=== PATIENT | male | born 1945 | race Caucasian/White ===

== ENCOUNTER 2024-01-18 11:34 | Outpatient (AMB) | payer OTHER, SELFPAY ==
--- NOTE | 2024-01-18 11:48 | HO.NEPHOV ---
HPI HPI Comments History of Present Illness Details I had the pleasure of seeing Jim in follow-up of his chronic kidney disease and hypertension. He has history of right BKA. His feels that he has been having memory issues lately. He is on aspirin. He never had workup rule out multi-infarct dementia. He is tolerating Jardiance. His blood sugar control is fair. He is on lisinopril. He denies any depression but the PCP and the family feels that he is mildly depressed. His paroxetine dosage has been increased lately. He denies nausea, vomiting, diarrhea, chest pain, shortness of breath, paroxysmal nocturnal dyspnea or orthopnea. He does not take any nonsteroidal anti-inflammatory medications. He maintains good hydration. His serum creatinine has gone up. He does not have any orthostatic symptoms. [facility] Medical History (Updated 01/18/24 @ 21:00 by Mihir Foster MD) Type 2 diabetes mellitus with diabetic nephropathy Hypertension CKD (chronic kidney disease) stage 3, GFR 30-59 ml/min Family History Mother Cancer Father Cancer Social History Alcohol intake: never Patient Tobacco Use Status: Former Tobacco user Vital Signs 01/18/24 11:53 BP 132/72 Blood Pressure Location Lt brachial Position Sitting Pulse 94 Pulse Source Pulse Oximeter Pulse Oximetry (%) 95 Oxygen Delivery Method Room Air Physical Exam Vital Signs: Last Vital Signs Pulse 94 01/18/24 11:53 BP 132/72 01/18/24 11:53 Pulse Ox 95 01/18/24 11:53 Oxygen Delivery Method Room Air 01/18/24 11:53 Const General: comfortable and no acute distress Orientation/consciousness: patient oriented x3 HEENT Head: Yes normocephalic Mouth: Normal oral and palatal mucosa present Eyes EOM: EOMs intact bilaterally Neck Neck: Yes supple Resp Auscultation: clear to auscultation bilaterally Cardio Jugular venous distension: no JVD Rate: regular rate GI Palpation (GI): Soft to palpation Auscultation: normal bowel sounds General: Yes no CVA tenderness Back/Spine/Pelvis Back: no CVA tenderness Skin General skin exam: no rashes or lesions noted Neuro General: patient oriented x3 Assessment & Plan Assessment & Plan (1) CKD (chronic kidney disease) stage 3, GFR 30-59 ml/min: Code(s): N18.30 - Chronic kidney disease, stage 3 unspecified Qualifiers: Chronic kidney disease stage 3 subtype: stage 3b (GFR 30-44) Qualified Code(s): N18.32 - Chronic kidney disease, stage 3b (2) Type 2 diabetes mellitus with diabetic nephropathy: Code(s): E11.21 - Type 2 diabetes mellitus with diabetic nephropathy Qualifiers: Diabetes mellitus intermediate manager insulin use: with skilled nursing use Qualified Code(s): E11.21 - Type 2 diabetes mellitus with diabetic nephropathy; Z79.4 - tank terminal gauger (current) use of insulin (3) Hypertension: Code(s): I10 - Essential (primary) hypertension Qualifiers: Hypertension type: primary hypertension Qualified Code(s): I10 - Essential (primary) hypertension Plan 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 He has history of severe vascular disease. He is status post right BKA. His serum creatinine has gone up a bit. If his serum creatinine continues to rise I will back off on his DARLENE inhibitor. He is tolerating Jardiance. His blood pressure is at goal. He needs to maintain good blood sugar. He can cut back on the dose of his vitamin-C. His volume status is optimal. I did not make any medication changes today. He avoids nonsteroidal anti-inflammatories. He should maintain good hydration. I ordered follow-up blood work. Further management is pending evolving data. Answered all his and his 's questions. Orders: Orders Blood Urea Nitrogen Today E11.21 - Type 2 diabetes mellitus with diabetic nephropathy, I10 - Essential (primary) hypertension, N18.30 - Chronic kidney disease, stage 3 unspecified Creatinine Today E11.21 - Type 2 diabetes mellitus with diabetic nephropathy, I10 - Essential (primary) hypertension, N18.30 - Chronic kidney disease, stage 3 unspecified Electrolytes Today E11.21 - Type 2 diabetes mellitus with diabetic nephropathy, I10 - Essential (primary) hypertension, N18.30 - Chronic kidney disease, stage 3 unspecified Protein Creatinine Ratio, Ur Today E11.21 - Type 2 diabetes mellitus with diabetic nephropathy, I10 - Essential (primary) hypertension, N18.30 - Chronic kidney disease, stage 3 unspecified Coding Level of Care Code Est Pt Level 4 (88727) Diagnoses Stage 3b chronic kidney disease N18.32 Chronic kidney disease stage 3 subtype: stage 3b (GFR 30-44) Type 2 diabetes mellitus with diabetic nephropathy, with long-term current use of insulin E11.21; Z79.4 Diabetes mellitus skilled nursing insulin use: with intermediate manager use Primary hypertension I10 Hypertension type: primary hypertension Results Reviewed Nephrology Results: No Data to Display
[2024-01-18 11:53] VITALS: BP 132/72; PULSE 94; O2SAT 95
== END 2024-01-18 13:04 | disposition home or self-care (01) ==
PROVIDERS: Visit Provider Internal Medicine Nephrology
DX: N18.32 Chronic kidney disease, stage 3b (principal); E11.21 Type 2 diabetes mellitus with diabetic nephropathy; Z79.4 Long term (current) use of insulin; I10 Essential (primary) hypertension
CPT/HCPCS: 99214

== ENCOUNTER → 2024-01-18 11:34 | Outpatient (BNVA) | payer OTHER, SELFPAY | PROVIDERS: Visit Provider Internal Medicine Nephrology ==

== ENCOUNTER 2024-04-18 13:49 | Outpatient (AMB) | payer OTHER, SELFPAY ==
--- NOTE | 2024-04-18 14:02 | HO.NEPHOV ---
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 He has history of right BKA. His feels that he has been having memory issues lately. He is on aspirin. He never had workup rule out multi-infarct dementia. He is tolerating Jardiance. His blood sugar control is fair. He is on lisinopril. He denies any depression but the PCP and the family feels that he is mildly depressed. His paroxetine dosage has been increased lately. He denies nausea, vomiting, diarrhea, chest pain, shortness of breath, paroxysmal nocturnal dyspnea or orthopnea. He does not take any nonsteroidal anti-inflammatory medications. He maintains good hydration. He does not have any orthostatic symptoms. [facility] Medical History (Updated 01/18/24 @ 21:00 by Mihir Foster MD) Type 2 diabetes mellitus with diabetic nephropathy Hypertension CKD (chronic kidney disease) stage 3, GFR 30-59 ml/min Family History Mother Cancer Father Cancer Social History Alcohol intake: never Patient Tobacco Use Status: Former Tobacco user Physical Exam Vital Signs: Last Vital Signs Pulse 81 04/18/24 14:38 BP 110/60 04/18/24 14:38 Pulse Ox 96 04/18/24 14:38 Oxygen Delivery Method Room Air 04/18/24 14:38 BMI result Body Mass Index 27.2 Const General: comfortable and no acute distress Orientation/consciousness: patient oriented x3 HEENT Head: Yes normocephalic Mouth: Normal oral and palatal mucosa present Eyes EOM: EOMs intact bilaterally Neck Neck: Yes supple Resp Auscultation: clear to auscultation bilaterally Cardio Jugular venous distension: no JVD Rate: regular rate GI Palpation (GI): Soft to palpation Auscultation: normal bowel sounds General: Yes no CVA tenderness Back/Spine/Pelvis Back: no CVA tenderness Skin General skin exam: no rashes or lesions noted Neuro General: patient oriented x3 and moves all extremities Results Reviewed Nephrology Results: No Data to Display Assessment & Plan Assessment & Plan (1) CKD (chronic kidney disease) stage 3, GFR 30-59 ml/min: Code(s): N18.30 - Chronic kidney disease, stage 3 unspecified Category: Medical Qualifiers: Chronic kidney disease stage 3 subtype: stage 3b (GFR 30-44) Qualified Code(s): N18.32 - Chronic kidney disease, stage 3b (2) Type 2 diabetes mellitus with diabetic nephropathy: Code(s): E11.21 - Type 2 diabetes mellitus with diabetic nephropathy Category: Medical Qualifiers: Diabetes mellitus intermodal customer service insulin use: with halfway use Qualified Code(s): E11.21 - Type 2 diabetes mellitus with diabetic nephropathy; Z79.4 - shelter (current) use of insulin (3) Hypertension: Code(s): I10 - Essential (primary) hypertension Category: Medical Qualifiers: Hypertension type: primary hypertension Qualified Code(s): I10 - Essential (primary) hypertension Plan 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 He has history of severe vascular disease. He is status post right BKA. His serum creatinine has gone up a bit. If his serum creatinine continues to rise I will back off on his DARLENE inhibitor. He is tolerating Jardiance. His blood pressure is at goal. He needs to maintain good blood sugar. His volume status is optimal. I did not make any medication changes today. He avoids nonsteroidal anti-inflammatories. He should maintain good hydration. I ordered follow-up blood work. Further management is pending evolving data. Answered all his and his 's questions. Orders: Orders Creatinine Today E11.21 - Type 2 diabetes mellitus with diabetic nephropathy, I10 - Essential (primary) hypertension, N18.32 - Chronic kidney disease, stage 3b, Z79.4 - shelter (current) use of insulin Electrolytes Today E11.21 - Type 2 diabetes mellitus with diabetic nephropathy, I10 - Essential (primary) hypertension, N18.32 - Chronic kidney disease, stage 3b, Z79.4 - shelter (current) use of insulin Calcium Today E11.21 - Type 2 diabetes mellitus with diabetic nephropathy, I10 - Essential (primary) hypertension, N18.32 - Chronic kidney disease, stage 3b, Z79.4 - shelter (current) use of insulin Blood Urea Nitrogen 3 Months E11.21 - Type 2 diabetes mellitus with diabetic nephropathy, I10 - Essential (primary) hypertension, N18.32 - Chronic kidney disease, stage 3b, Z79.4 - terminologist (current) use of insulin Electrolytes 3 Months E11.21 - Type 2 diabetes mellitus with diabetic nephropathy, I10 - Essential (primary) hypertension, N18.32 - Chronic kidney disease, stage 3b, Z79.4 - shelter (current) use of insulin Blood Urea Nitrogen Today E11.21 - Type 2 diabetes mellitus with diabetic nephropathy, I10 - Essential (primary) hypertension, N18.32 - Chronic kidney disease, stage 3b, Z79.4 - shelter (current) use of insulin Creatinine 3 Months E11.21 - Type 2 diabetes mellitus with diabetic nephropathy, I10 - Essential (primary) hypertension, N18.32 - Chronic kidney disease, stage 3b, Z79.4 - terminologist (current) use of insulin Coding Level of Care Code Est Pt Level 4 (94058) Diagnoses Stage 3b chronic kidney disease N18.32 Chronic kidney disease stage 3 subtype: stage 3b (GFR 30-44) Type 2 diabetes mellitus with diabetic nephropathy, with long-term current use of insulin E11.21; Z79.4 Diabetes mellitus intermodal customer service insulin use: with halfway use Primary hypertension I10 Hypertension type: primary hypertension
[2024-04-18 14:38] VITALS: BP 110/60; PULSE 81; O2SAT 96; BMI 27.2
== END 2024-04-18 15:02 | disposition home or self-care (01) ==
PROVIDERS: Visit Provider Internal Medicine Nephrology
DX: N18.32 Chronic kidney disease, stage 3b (principal); E11.21 Type 2 diabetes mellitus with diabetic nephropathy; Z79.4 Long term (current) use of insulin; I10 Essential (primary) hypertension
CPT/HCPCS: 99214

== ENCOUNTER → 2024-04-18 13:49 | Outpatient (BNVA) | payer OTHER, SELFPAY | PROVIDERS: Visit Provider Internal Medicine Nephrology ==

== ENCOUNTER 2024-04-18 15:08 | Outpatient (REF) | payer OTHER, SELFPAY ==
[2024-04-18 18:26] LABS: Anion Gap 12 (12-20); Blood Urea Nitrogen 38 mg/dL (9-16); Carbon Dioxide 33 mmol/L (22-29); Chloride 101 mmol/L (96-108); Estimated Glomerular Filt Rate 34; Phosphorus 2.6 mg/dL (2.7-4.5); Potassium 3.9 mmol/L (3.3-5.1); Sodium 142 mmol/L (135-145)
== END 2024-04-18 15:09 | disposition home or self-care (01) ==
LOC: HO.HKASLDS 15:08
PROVIDERS: Visit Provider Internal Medicine Nephrology
DX: I12.9 Hypertensive chronic kidney disease with stage 1 through stage 4 chronic kidney disease, or unspecified chronic kidney disease (principal); N18.30 Chronic kidney disease, stage 3 unspecified; E11.21 Type 2 diabetes mellitus with diabetic nephropathy; N18.32 Chronic kidney disease, stage 3b; Z79.4 Long term (current) use of insulin
CPT/HCPCS: 36415; 80051; 82306; 82310; 82565; 84100; 84520

== ENCOUNTER 2024-08-31 11:43 | Outpatient (AMB) | payer OTHER, SELFPAY ==
[2024-08-31 12:23] VITALS: BP 90/50; BMI 28.8
--- NOTE | 2024-08-31 12:23 | HO.NEPHOV ---
Vital Signs 08/31/24 12:23 Height 6 ft Weight 212 lb 4 oz BMI 28.8 BP 90/50 L Blood Pressure Location Lt brachial Position Sitting Intake Visit Reasons: 3 mon follow up-Conf Optomechanical Engineer Required: No Accompanied by: Spouse Allergies No Known Allergies Allergy (Verified 04/18/24 14:42) HPI Comments Details: Jim was seen in follow-up of his chronic kidney disease and hypertension. He has history of right BKA. He is on aspirin. He never had workup rule out multi-infarct dementia. He is tolerating Jardiance. His blood sugar control is fluctuant but fair. He is on lisinopril. He denies nausea, vomiting, diarrhea, chest pain, shortness of breath, paroxysmal nocturnal dyspnea or orthopnea. He does not take any nonsteroidal anti-inflammatory medications. He maintains good hydration. He does not have any orthostatic symptoms [facility] Medical History (Updated 01/18/24 @ 21:00 by Mihir Foster MD) Type 2 diabetes mellitus with diabetic nephropathy Hypertension CKD (chronic kidney disease) stage 3, GFR 30-59 ml/min Family History Mother Cancer Father Cancer Social History Alcohol intake: never Patient Tobacco Use Status: Former Tobacco user Review of Systems Const All systems reviewed & are unremarkable except as noted in HPI and below Physical Exam Vital Signs: Last Vital Signs BP 90/50 L 08/31/24 12:23 BMI result Body Mass Index 28.8 Const General: comfortable and no acute distress Orientation/consciousness: patient oriented x3 HEENT Head: Yes normocephalic Mouth: Normal oral and palatal mucosa present Eyes EOM: EOMs intact bilaterally Neck Neck: Yes supple Resp Auscultation: clear to auscultation bilaterally Cardio Jugular venous distension: no JVD Rate: regular rate GI Palpation (GI): Soft to palpation Auscultation: normal bowel sounds General: Yes no CVA tenderness Back/Spine/Pelvis Back: no CVA tenderness Skin General skin exam: no rashes or lesions noted Neuro General: patient oriented x3 and moves all extremities Assessment & Plan Assessment & Plan (1) CKD (chronic kidney disease) stage 3, GFR 30-59 ml/min: Code(s): N18.30 - Chronic kidney disease, stage 3 unspecified Category: Medical Qualifiers: Chronic kidney disease stage 3 subtype: stage 3b (GFR 30-44) Qualified Code(s): N18.32 - Chronic kidney disease, stage 3b (2) Hypertension: Code(s): I10 - Essential (primary) hypertension Category: Medical Qualifiers: Hypertension type: primary hypertension Qualified Code(s): I10 - Essential (primary) hypertension Plan 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 He has history of severe vascular disease. He is status post right BKA. He has not had any blood work recently. If his serum creatinine continues to rise I will back off on his DARLENE inhibitor. He is tolerating Jardiance. His blood pressure is at goal. He needs to maintain good blood sugar. His volume status is optimal. I did not make any medication changes today. He avoids nonsteroidal anti-inflammatories. He should maintain good hydration. Answered all his and his 's questions Orders: Orders Creatinine 3 Months I10 - Essential (primary) hypertension, N18.32 - Chronic kidney disease, stage 3b Blood Urea Nitrogen 3 Months I10 - Essential (primary) hypertension, N18.32 - Chronic kidney disease, stage 3b Creatinine 08/31/24 I10 - Essential (primary) hypertension, N18.32 - Chronic kidney disease, stage 3b Blood Urea Nitrogen 08/31/24 I10 - Essential (primary) hypertension, N18.32 - Chronic kidney disease, stage 3b Electrolytes 08/31/24 I10 - Essential (primary) hypertension, N18.32 - Chronic kidney disease, stage 3b Calcium 08/31/24 I10 - Essential (primary) hypertension, N18.32 - Chronic kidney disease, stage 3b Complete Blood Count Auto Diff 08/31/24 I10 - Essential (primary) hypertension, N18.32 - Chronic kidney disease, stage 3b Electrolytes 3 Months I10 - Essential (primary) hypertension, N18.32 - Chronic kidney disease, stage 3b Coding Level of Care Code Est Pt Level 4 (95390) Diagnoses Stage 3b chronic kidney disease N18.32 Chronic kidney disease stage 3 subtype: stage 3b (GFR 30-44) Primary hypertension I10 Hypertension type: primary hypertension
== END 2024-08-31 13:01 | disposition home or self-care (01) ==
LOC: HO.HKAS 11:43
PROVIDERS: Visit Provider Internal Medicine Nephrology
DX: N18.32 Chronic kidney disease, stage 3b (principal); I10 Essential (primary) hypertension
CPT/HCPCS: 99214

== ENCOUNTER → 2024-08-31 11:43 | Outpatient (BNVA) | payer OTHER, SELFPAY | PROVIDERS: Visit Provider Internal Medicine Nephrology ==

== ENCOUNTER 2025-01-23 12:11 | Outpatient (AMB) | payer OTHER, SELFPAY ==
--- NOTE | 2025-01-23 12:11 | HO.NEPHOV ---
Intake Visit Reasons: Disc'd home/ ? on meds Process Improvement Engineer Required: No Accompanied by: Spouse Allergies No Known Allergies Allergy (Verified 01/23/25 12:16) HPI Comments Details: Jim was seen in follow-up by [facility] for his chronic kidney disease and hypertension. 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 He had MJ during his rehab time in [facility]. He is on aspirin. He is tolerating Jardiance but apparently had been taking Jardiance and Farxiga, which is now discontinued. His blood sugar control is fluctuant but fair. His lisinopril has been D/David for JM. He denies nausea, vomiting, diarrhea, chest pain, shortness of breath, paroxysmal nocturnal dyspnea or orthopnea. He does not take any nonsteroidal anti-inflammatory medications. He maintains good hydration. He does not have any orthostatic symptoms [facility] Medical History (Updated 01/23/25 @ 13:07 by Mihir Foster MD) Type 2 diabetes mellitus with diabetic nephropathy Hypertension CKD (chronic kidney disease) stage 3, GFR 30-59 ml/min Family History Mother Cancer Father Cancer Social History Alcohol intake: never Patient Tobacco Use Status: Former Tobacco user Review of Systems Const All systems reviewed & are unremarkable except as noted in HPI and below Telehealth Telehealth Telehealth Platform: Telephone Location of provider rendering services: practice address Location of patient: address on file Patient Identification confirmed using: Name, : Yes Telehealth method: voice only Patient verbally consented to treatment: Yes Patient verbally consented to billing insurance company: Yes Patient informed of any privacy concerns related to visit: No Minutes spent on Phone/Video with Pt.: 10 Assessment & Plan Assessment & Plan (1) Acute kidney injury superimposed on stage 3a chronic kidney disease: Code(s): N17.9 - Acute kidney failure, unspecified; N18.31 - Chronic kidney disease, stage 3a Category: Medical (2) CKD (chronic kidney disease) stage 3, GFR 30-59 ml/min: Code(s): N18.30 - Chronic kidney disease, stage 3 unspecified Category: Medical Qualifiers: Chronic kidney disease stage 3 subtype: stage 3b (GFR 30-44) Qualified Code(s): N18.32 - Chronic kidney disease, stage 3b (3) Type 2 diabetes mellitus with diabetic nephropathy: Code(s): E11.21 - Type 2 diabetes mellitus with diabetic nephropathy Category: Medical Qualifiers: Diabetes mellitus ocean transportation intermediary insulin use: with ocean transportation intermediary use Qualified Code(s): E11.21 - Type 2 diabetes mellitus with diabetic nephropathy; Z79.4 - medical terminologist (current) use of insulin (4) Hypertension: Code(s): I10 - Essential (primary) hypertension Category: Medical Qualifiers: Hypertension type: primary hypertension Qualified Code(s): I10 - Essential (primary) hypertension Plan 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 He has history of severe vascular disease. He is status post right and left BKA. He is off his DARLENE inhibitor given MJ. He is tolerating Jardiance. His blood pressure is at goal. He needs to maintain good blood sugar. His volume status is optimal. I did not make any medication changes today. He avoids nonsteroidal anti-inflammatories. He should maintain good hydration. Answered all his and his 's questions Orders: Orders Electrolytes 6 Weeks E11.21 - Type 2 diabetes mellitus with diabetic nephropathy, I10 - Essential (primary) hypertension, N17.9 - Acute kidney failure, unspecified, N18.31 - Chronic kidney disease, stage 3a, N18.32 - Chronic kidney disease, stage 3b, Z79.4 - senior living (current) use of insulin Calcium 6 Weeks E11.21 - Type 2 diabetes mellitus with diabetic nephropathy, I10 - Essential (primary) hypertension, N17.9 - Acute kidney failure, unspecified, N18.31 - Chronic kidney disease, stage 3a, N18.32 - Chronic kidney disease, stage 3b, Z79.4 - medical terminologist (current) use of insulin Creatinine 6 Weeks E11.21 - Type 2 diabetes mellitus with diabetic nephropathy, I10 - Essential (primary) hypertension, N17.9 - Acute kidney failure, unspecified, N18.31 - Chronic kidney disease, stage 3a, N18.32 - Chronic kidney disease, stage 3b, Z79.4 - senior living (current) use of insulin Complete Blood Count Auto Diff 6 Weeks E11.21 - Type 2 diabetes mellitus with diabetic nephropathy, I10 - Essential (primary) hypertension, N17.9 - Acute kidney failure, unspecified, N18.31 - Chronic kidney disease, stage 3a, N18.32 - Chronic kidney disease, stage 3b, Z79.4 - senior living (current) use of insulin Blood Urea Nitrogen 6 Weeks E11.21 - Type 2 diabetes mellitus with diabetic nephropathy, I10 - Essential (primary) hypertension, N17.9 - Acute kidney failure, unspecified, N18.31 - Chronic kidney disease, stage 3a, N18.32 - Chronic kidney disease, stage 3b, Z79.4 - medical terminologist (current) use of insulin Coding Level of Care Code Tele Est Pt Level 4 (03562) Diagnoses Acute kidney injury superimposed on stage 3a chronic kidney disease N17.9; N18.31 Stage 3b chronic kidney disease N18.32 Chronic kidney disease stage 3 subtype: stage 3b (GFR 30-44) Type 2 diabetes mellitus with diabetic nephropathy, with long-term current use of insulin E11.21; Z79.4 Diabetes mellitus ocean transportation intermediary insulin use: with skilled nursing use Primary hypertension I10 Hypertension type: primary hypertension
== END 2025-01-23 13:52 | disposition home or self-care (01) ==
LOC: HO.HKAS 12:11
PROVIDERS: Visit Provider Internal Medicine Nephrology
DX: N17.9 Acute kidney failure, unspecified (principal); N18.31 Chronic kidney disease, stage 3a; N18.32 Chronic kidney disease, stage 3b; E11.21 Type 2 diabetes mellitus with diabetic nephropathy; Z79.4 Long term (current) use of insulin; I10 Essential (primary) hypertension
CPT/HCPCS: 98014

== ENCOUNTER 2025-03-01 13:05 | Outpatient (AMB) | payer OTHER, SELFPAY ==
--- NOTE | 2025-03-01 13:25 | HO.NEPHOV_ITS ---
Vital Signs 03/01/25 14:00 Height 6 ft BP 122/80 Blood Pressure Location Lt brachial Position Sitting Pulse 85 Pulse Source Pulse Oximeter Intake Visit Reasons: CKD-LVM Chemical Analytical Sampler Required: No Accompanied by: Spouse Allergies No Known Allergies Allergy (Verified 03/01/25 14:00) HPI Comments Details: Jim was seen in follow-up for his chronic kidney disease and hypertension. He has history of right and left BKA . His blood sugars are not well controlled. He had MJ post op but improved now. He is on aspirin. He is tolerating Jardiance. His lisinopril has been D/David for MJ. He denies nausea, vomiting, diarrhea, chest pain, shortness of breath, paroxysmal nocturnal dyspnea or orthopnea. He does not take any nonsteroidal anti-inflammatory medications. He maintains good hydration. He does not have any orthostatic symptoms [facility] Medical History Type 2 diabetes mellitus with diabetic nephropathy Hypertension CKD (chronic kidney disease) stage 3, GFR 30-59 ml/min Family History Mother Cancer Father Cancer Social History Alcohol intake: never Patient Tobacco Use Status: Former Tobacco user Review of Systems Const All systems reviewed & are unremarkable except as noted in HPI and below Physical Exam Vital Signs: Last Vital Signs Pulse 85 03/01/25 14:00 BP 122/80 03/01/25 14:00 Const General: comfortable and no acute distress Orientation/consciousness: patient oriented x3 HEENT Head: Yes normocephalic Mouth: Normal oral and palatal mucosa present Eyes EOM: EOMs intact bilaterally Neck Neck: Yes supple Resp Auscultation: clear to auscultation bilaterally Cardio Jugular venous distension: no JVD Rate: regular rate GI Palpation (GI): Soft to palpation Auscultation: normal bowel sounds Neuro General: patient oriented x3 Assessment & Plan Assessment & Plan (1) CKD (chronic kidney disease) stage 3, GFR 30-59 ml/min: Code(s): N18.30 - Chronic kidney disease, stage 3 unspecified Category: Medical Qualifiers: Chronic kidney disease stage 3 subtype: stage 3b (GFR 30-44) Qualified Code(s): N18.32 - Chronic kidney disease, stage 3b (2) Type 2 diabetes mellitus with diabetic nephropathy: Code(s): E11.21 - Type 2 diabetes mellitus with diabetic nephropathy Category: Medical Qualifiers: Diabetes mellitus laborer marine terminal insulin use: with nursing home use Qualified Code(s): E11.21 - Type 2 diabetes mellitus with diabetic nephropathy; Z79.4 - intermediate frame tender (current) use of insulin (3) Hypertension: Code(s): I10 - Essential (primary) hypertension Category: Medical Qualifiers: Hypertension type: primary hypertension Qualified Code(s): I10 - Essential (primary) hypertension Plan 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 He has history of severe vascular disease. He is status post right and left BKA. He is off his DARLENE inhibitor given MJ. He is tolerating Jardiance. His blood pre ssure is at goal. He needs to maintain good blood sugar. His volume status is optimal. I did not make any medication changes today. He avoids nonsteroidal anti-inflammatories. He should maintain good hydration. Answered all his and his 's questions Orders: Orders Blood Urea Nitrogen 3 Months E11.21 - Type 2 diabetes mellitus with diabetic nephropathy, I10 - Essential (primary) hypertension, N18.32 - Chronic kidney disease, stage 3b, Z79.4 - intermediate frame tender (current) use of insulin Creatinine 3 Months E11.21 - Type 2 diabetes mellitus with diabetic nephropathy, I10 - Essential (primary) hypertension, N18.32 - Chronic kidney disease, stage 3b, Z79.4 - longterm (current) use of insulin Electrolytes 3 Months E11.21 - Type 2 diabetes mellitus with diabetic nephropathy, I10 - Essential (primary) hypertension, N18.32 - Chronic kidney disease, stage 3b, Z79.4 - longterm (current) use of insulin Coding Level of Care Code Est Pt Level 4 (01037) Diagnoses Stage 3b chronic kidney disease N18.32 Chronic kidney disease stage 3 subtype: stage 3b (GFR 30-44) Type 2 diabetes mellitus with diabetic nephropathy, with long-term current use of insulin E11.21; Z79.4 Diabetes mellitus laborer marine terminal insulin use: with laborer marine terminal use Primary hypertension I10 Hypertension type: primary hypertension
[2025-03-01 14:00] VITALS: BP 122/80; PULSE 85
--- OUTSIDE RECORDS SUMMARY | 2025-03-01 15:30 | XMS_ITS | Encounter Summary ---
Author Organization [facility] Address [address] [place] [address] Care Team Providers Care Costumed Character Name Role Phone Maci Carvajal Primary Care Provider [phone] Encounter Details Date Type Department Care Team (Late st Contact Info) Description 10/06/2024 Lab Requisition [facility] - Main Lab [address] [facility] [place] [address] Gadiel Armstrong PA [address] [place] [address] Benign essential microscopic hematuria Social History Tobacco Use Types Packs/Day Years Used Date Smoking Tobacco: Former Cigarettes Q uit: 11/01/1974 Smokeless Tobacco: Former Alcohol Use Standard Drinks/Week Comments Never 0 (1 standard drink = 0.6 oz pur e alcohol) Sex and Gender Information Value Date Recorded Sex Assigned at Not on file Legal Sex Male 5:19 AM EST Gender Identity Not on file Sexual Orientation Not on file documented as of this encounter Plan of Treatment Upcoming Encounters Date Type Department Care Team (Late st Contact Info) Description 05/23/2025 10:20 AM EDT Office Visit [facility] [address] [place] [address] Sajan Noriega MD [address] [place] [address] DRIVE [address] [place] [address] documented as of this encounter Procedures Procedure Name Priority Date/Time Associated Diagnosis Comments AP OUTSIDE CONSULT Routine 10/03/2024 12 :00 AM EST Benign essential microscopic hematuria documented in this encounter Results * Anatomic pathology outside consult (10/03/2024 12:00 AM EST) Final Diagnosis Urine, Voided: Negative for high-grade urothelial carcinoma. Abundant acute inflammation. Scant urothelial cellularity. 10/20/2024 5:55 PM EST [facility] Clinical Information [id number] Urine Cytology (now) 10/20/2024 5:55 PM EST [facility] Gross Description A. Urine, Voided, : [id number] Received 1 TP 10/20/2024 5:55 PM EST [facility] Disclaimer Unless otherwise specified, all tissue is 10% NB formalin fixed and paraffin embedded. Technical pathology services provided by [facility] [address] [facility] [address] [place] [address] (CLIA #[id number]/S alexandr Saenz MD, Battery Service Technician) 10/20/2024 5:55 PM EST [facility] Tissue Urine specimen from urethra / Unknown 10/03/2024 10/06/2024 3:18 PM EST us Gadiel NEW LAB PATHOLOGY ORDERABLES Final Result [facility] [address] [place] [address], documented in this encounter Visit Diagnoses Diagnosis Benign essential microscopic hematuria documented in this encounter Care Teams Costumed Character Relationship Specialty Start Date End Date Maci Carvajal PA [address] [place] [address] PCP - General 06/25/23 documented as of this encounter
--- OUTSIDE RECORDS SUMMARY | 2025-03-01 15:30 | XMS_ITS ---
Author Organization [facility] Address [address] [facility] [place] [address] Care Team Providers Care Weasand Trimmer Name Role Phone Niki VELÁZQUEZ, Brennan Primary Care Provider Unavailab Piper Gonzalez Unavailable [phone] Maci Carvajal Unavailable Unavailable Encounters Encounter Location Date Provider Diagnosis [address] [address] 12/26/2024 Piper Santso Plan Of Treatment No Information Progress Notes * Jim AUGUSTIN ADOB:[birth year] (79 yo M)Acc No.[id number]:12/26/2024 Progress Note Patient:Jim IVAN Provider:?Piper Santos DPM :1945???Age:79 Y???Sex:Male Jean-Claude e:12/26/2024 Address[address] [id number] Pcp:Brennan Prince MD Subjective: * Chief Complaints: * ??? * Medical History:? Objective: * Vitals:? Assessment: Plan: * Treatment: * Images: * The named appointment provid er may or may not be the originator of this progress note, and it is not deemed complete until electronically signed by the appointment provider. Sign off status: Pending * Provider:?Piper Santos DPM Date:?2024 Generated for Johni lissa/Fajesseniag/eTransmitting on:?03/01/2025 03:30 PM EDT
--- OUTSIDE RECORDS SUMMARY | 2025-03-01 15:30 | XMS_ITS | Encounter Summary ---
Author Organization [facility] Address [address] [place] [address] Care Team Providers Care Photo Technician Name Role Phone Maci Carvajal Primary Care Provider [phone] Encounter Details Date Type Department Care Team (Late st Contact Info) Description 12/15/2024 Lab Requisition [facility] - Main Lab [address] [facility] [place] [address] Marianna Ellison MD [address] [address] Weakness; Type 2 diabetes mellitus without complications (CMS/HCC V24, CMS/HCC V28) Social History Tobacco Use Types Packs/Day Years [...] Description 05/23/2025 10:20 AM EDT Office Visit [facility] [address] [place] [address] Sajan Noriega MD [address] [place] [address] DRIVE [address] [place] [address] documented as of this encounter Procedures Procedure Name Priority Date/Time Associated Diagnosis Comments COMPLETE BLOOD COUNT Routine 12/18/2024 6:18 AM EST Weakness Type 2 diabetes mellitus without complications (CMS/HCC) BASIC METABOLIC PANEL Routine 12/18/2024 6:18 AM EST Weakness Type 2 diabetes mellitus without complications ([facility]/HCC) documented in this encounter Results * (ABNORMAL) Basic metabolic panel (12/18/2024 6:18 AM EST) Sodium 141 133 - 145 mmol/L LAB CHEMISTRY METHOD 12/18/2024 1:[address] [facility] Potassium 4.2 3.5 - 5.5 mmol/L LAB CHEMISTRY METHOD 12/18/2024 1:[address] [facility] Chloride 105 96 - 110 mmol/L LAB CHEMISTRY METHOD 12/18/2024 1:[address] [facility] CO2 25 21 - 32 mmol/L LAB CHEMISTRY METHOD 12/18/2024 1:[address] [facility] Anion Gap 11 3 - 11 LAB CHEMISTRY METHOD 12/18/2024 1:[address] [facility] Glucose 140(H) 70 - 100 mg/dL LAB CHEMISTRY METHOD 12/18/2024 1:[address] [facility] BUN 32(H) 5 - 25 mg/dL LAB CHEMISTRY METHOD 12/18/2024 1:[address] [facility] Creatinine 1.50(H) 0.70 - 1.30 mg/dL LAB CHEMISTRY METHOD 12/18/2024 1:[address] [facility] eGFR 47(L) >=60 mL/min/1. 73m2 LAB CHEMISTRY METHOD 12/18/2024 1:[address] [facility] Comment:Calculation based on the??Chronic Kidney Disease Epidemiology Collaboration (CKD-EPI) equation refit??without adjustment for race. BUN/Creatinine Ratio 21.3 LAB CHEMISTRY METHOD 12/18/2024 1:[address] [facility] Calcium 8.9 8.5 - 10.5 mg/dL LAB CHEMISTRY METHOD 12/18/2024 1:27 PM EST [facility] Blood Venous blood specimen / Unknown Venipuncture / Unknown 12/18/2024 6:18 AM EST 12/18/2024 11:40 AM EST us Marianna Ellison MD LAB BLOOD ORDERABLES Fin al Result [facility] [address] [place] [address], [place] [phone] * (ABNORMAL) Complete blood count (12/18/2024 6:18 AM EST) WBC 8.3 4.8 - 10.8 K/mcL LAB HEMETOLOGY METHOD 12/18/2024 1:[address] [facility] RBC 4.60 4.50 - 5.50 M/[facility] LAB HEMETOLOGY METHOD 12/18/2024 1:[address] [facility] Hemoglobin 13.4(L) 13.5 - 17.5 g/dL LAB HEMETOLOGY METHOD 12/18/2024 1:[address] [facility] Hematocrit 43.0 42.0 - 54.0 % LAB HEMETOLOGY METHOD 12/18/2024 1:[address] [facility] MCV 94.5 79.0 - 98.0 FL LAB HEMETOLOGY METHOD 12/18/2024 1:[address] [facility] MCH 29.5 27.0 - 32.0 pcg LAB HEMETOLOGY METHOD 12/18/2024 1:[address] [facility] MCHC 31.2(L) 32.0 - 37.0 g/dL LAB HEMETOLOGY METHOD 12/18/2024 1:[address] [facility] RDW 15.8(H) 11.0 - 15.0 % LAB HEMETOLOGY METHOD 12/18/2024 1:13 PM EST [facility] Platelets 156 130 - 400 K/mcL LAB HEMETOLOGY METHOD 12/18/2024 1:13 PM EST [facility] MPV 12.2(H) 7.0 - 11.0 FL LAB HEMETOLOGY METHOD 12/18/2024 1:13 PM EST [facility] NRBC 0.0 <1.0 % LAB HEMETOLOGY METHOD 12/18/2024 1:13 PM EST [facility] NRBC Absolute 0.00 <0.10 K/mcL LAB HEMETOLOGY METHOD 12/18/2024 1:[address] [facility] Blood Venous blood specimen / Unknown Venipuncture / Unknown 12/18/2024 6:18 AM EST 12/18/2024 11:40 AM EST us Marianna Ellison MD LAB BLOOD ORDERABLES Fin al Result [facility] [address] [place] [address], documented in this encounter Visit Diagnoses Diagnosis Weakness Other malaise and fatigue Type 2 diabetes mellitus without complications (CMS/HCC V24, CMS/HCC V28) documented in this encounter Care Teams Photo Technician Relationship Specialty Start Date End Date Maci Carvajal PA [address] [place] [address] PCP - General 06/25/23 documented as of this encounter
--- OUTSIDE RECORDS SUMMARY | 2025-03-01 15:30 | XMS_ITS ---
Author Organization [facility] Address [address] [place] [address] Care Team Providers Care Information Management Manager Name Role Phone Brennan Prince MD Primary Care Provider Unavailab le Black, Piper Unavailable [phone] Maci Carvajal Unavailable Unavailable REASON FOR VISIT cx appt 12/26/24 Encounters Encounter Location Date Provider Diagnosis [facility] [address] [place] [address] 12/12/2024 Piper Black Plan Of Treatment No Information Progress Notes * Jim AUGUSTIN ADOB:[birth year] (79 yo M)Acc No.[id number]:12/12/2024 Patient:?Jim AUGUSTIN :1945???Age:79 Y???Sex:Male Address[address] [place], [address] * true * Date:? Generated for Rox alcaraz/Rakesh/eTransmitting on:?03/01/2025 03:30 PM EDT
--- OUTSIDE RECORDS SUMMARY | 2025-03-01 15:30 | XMS_ITS | Encounter Summary ---
Author Organization [facility] Address [address] [place] [address] Care Team Providers Care Stud Dairy Cattle Farmer Name Role Phone Maci Carvajal Primary Care Provider [phone] Encounter Details Date Type Department Care Team (Late st Contact Info) Description 12/13/[address] [facility] - Main Lab [address] [facility] [place] [address] Marianna Ellison MD [address] [address] Weakness; Type 2 diabetes mellitus without complications [...] Description 05/23/2025 10:20 AM EDT Office Visit [facility] [address] [place] [address] Sajan Noriega MD [address] [place] [address] [address] [place] [address] documented as of this encounter Procedures Procedure Name Priority Date/Time Associated Diagnosis Comments COMPLETE BLOOD COUNT Routine 12/14/2024 5:50 AM EST Weakness Type 2 diabetes mellitus without complications (CMS/HCC) BASIC METABOLIC PANEL Routine 12/14/2024 5:50 AM EST Weakness Type 2 diabetes mellitus without complications ([facility]/HCC) documented in this encounter Results * (ABNORMAL) Basic metabolic panel (12/14/2024 5:50 AM EST) Sodium 142 133 - 145 mmol/L LAB CHEMISTRY METHOD 12/14/2024 10:11 AM [facility] Potassium 4.2 3.5 - 5.5 mmol/L LAB CHEMISTRY METHOD 12/14/2024 10:11 AM [facility] Chloride 106 96 - 110 mmol/L LAB CHEMISTRY METHOD 12/14/2024 10:11 AM [facility] CO2 31 21 - 32 mmol/L LAB CHEMISTRY METHOD 12/14/2024 10:11 AM [facility] Anion Gap 5 3 - 11 LAB CHEMISTRY METHOD 12/14/2024 10:11 AM [facility] Glucose 133(H) 70 - 100 mg/dL LAB CHEMISTRY METHOD 12/14/2024 10:11 AM [facility] BUN 37(H) 5 - 25 mg/dL LAB CHEMISTRY METHOD 12/14/2024 10:11 AM [facility] Creatinine 1.42(H) 0.70 - 1.30 mg/dL LAB CHEMISTRY METHOD 12/14/2024 10:11 AM [facility] eGFR 50(L) >=60 mL/min/1. 73m2 LAB CHEMISTRY METHOD 12/14/2024 10:11 AM [facility] Comment:Calculation based on the??Chronic Kidney Disease Epidemiology Collaboration (CKD-EPI) equation refit??without adjustment for race. BUN/Creatinine Ratio 26.1 LAB CHEMISTRY METHOD 12/14/2024 10:11 AM [facility] Calcium 8.8 8.5 - 10.5 mg/dL LAB CHEMISTRY METHOD 12/14/2024 10:11 AM EST [facility] Blood Venous blood specimen / Unknown Venipuncture / Unknown 12/14/2024 5:50 AM EST 12/14/2024 9:17 AM EST us Marianna Ellison MD LAB BLOOD ORDERABLES Fin al Result [facility] [address] [place] [address], [place] [phone] * (ABNORMAL) Complete blood count (12/14/2024 5:50 AM EST) WBC 6.3 4.8 - 10.8 K/mcL LAB HEMETOLOGY METHOD 12/14/2024 9:43 AM [facility] RBC 4.40(L) 4.50 - 5.50 M/[facility] LAB HEMETOLOGY METHOD 12/14/2024 9:43 AM [facility] Hemoglobin 13.0(L) 13.5 - 17.5 g/dL LAB HEMETOLOGY METHOD 12/14/2024 9:43 AM [facility] Hematocrit 41.7(L) 42.0 - 54.0 % LAB HEMETOLOGY METHOD 12/14/2024 9:43 AM [facility] MCV 95.0 79.0 - 98.0 FL LAB HEMETOLOGY METHOD 12/14/2024 9:43 AM [facility] MCH 29.6 27.0 - 32.0 pcg LAB HEMETOLOGY METHOD 12/14/2024 9:43 AM [facility] MCHC 31.2(L) 32.0 - 37.0 g/dL LAB HEMETOLOGY METHOD 12/14/2024 9:43 AM [facility] RDW 15.4(H) 11.0 - 15.0 % LAB HEMETOLOGY METHOD 12/14/2024 9:43 AM EST [facility] Platelets 173 130 - 400 K/mcL LAB HEMETOLOGY METHOD 12/14/2024 9:43 AM EST [facility] MPV 11.7(H) 7.0 - 11.0 FL LAB HEMETOLOGY METHOD 12/14/2024 9:43 AM EST [facility] NRBC 0.0 <1.0 % LAB HEMETOLOGY METHOD 12/14/2024 9:43 AM EST [facility] NRBC Absolute 0.00 <0.10 K/mcL LAB HEMETOLOGY METHOD 12/14/2024 9:43 AM [facility] Blood Venous blood specimen / Unknown Venipuncture / Unknown 12/14/2024 5:50 AM EST 12/14/2024 9:16 AM EST us Marianna Ellison MD LAB BLOOD ORDERABLES Fin al Result [facility] [address] [place] [address], documented in this encounter Visit Diagnoses Diagnosis Weakness Other malaise and fatigue Type 2 diabetes mellitus without complications (CMS/HCC V24, CMS/HCC V28) documented in this encounter Care Teams Stud Dairy Cattle Farmer Relationship Specialty Start Date End Date Maci Carvajal PA [address] [place] [address] PCP - General 06/25/23 documented as of this encounter
--- OUTSIDE RECORDS SUMMARY | 2025-03-01 15:30 | XMS_ITS | Encounter Summary ---
Author Organization [facility] Address [address] [place] [address] Care Team Providers Care Substation Operator Helper Generation Name Role Phone Maci Carvajal Primary Care Provider [phone] Encounter Details Date Type Department Care Team (Late st Contact Info) Description 12/22/2024 Lab Requisition [facility] - Main Lab [address] [facility] [place] [address] Marianna Ellison MD [address] [address] Weakness; Type 2 diabetes mellitus without complications [...] Description 05/23/2025 10:20 AM EDT Office Visit [facility] [address] [place] [address] Sajan Noriega MD [address] [place] [address] [address]IVE [address] [place] [address] documented as of this encounter Visit Diagnoses Diagnosis Weakness Other malaise and fatigue Type 2 diabetes mellitus without complications (CMS/[facility] V24, CMS/[facility] V28) documented in this encounter Care Teams Substation Operator Helper Generation Relationship Specialty Start Date End Date Maci Carvajal PA [address] [place] [address] PCP - General 06/25/23 documented as of this encounter
--- OUTSIDE RECORDS SUMMARY | 2025-03-01 15:30 | XMS_ITS | Encounter Summary ---
Author Organization [facility] Address [address] [place] [address] Care Team Providers Care Manager Research Name Role Phone Maci Carvajal Primary Care Provider [phone] Encounter Details Date Type Department Care Team (Late st Contact Info) Description 12/06/2024 Lab Requisition [facility] - Main Lab 299 [facility] [place] [address] Marianna Ellison MD [address] [address] Type 2 diabetes mellitus without complications (CMS/HCC V24, CMS/HCC V28); Weakness Social History Tobacco Use Types Packs/Day Years [...] Description 05/23/2025 10:20 AM EDT Office Visit [facility] [address] [place] [phone] Sajna Noriega MD [address] [place] [address] [address] [place] [address] documented as of this encounter Procedures Procedure Name Priority Date/Time Associated Diagnosis Comments COMPLETE BLOOD COUNT Routine 12/07/2024 6:39 AM EST Type 2 diabetes mellitus without complications ([facility]/HCC) Weakness BASIC METABOLIC PANEL Routine 12/07/2024 6:39 AM EST Type 2 diabetes mellitus without complications ([facility]/HCC) Weakness documented in this encounter Results * (ABNORMAL) Basic metabolic panel (12/07/2024 6:39 AM EST) Sodium 140 133 - 145 mmol/L LAB CHEMISTRY METHOD 12/07/2024 11:[address] [facility] Potassium 5.0 3.5 - 5.5 mmol/L LAB CHEMISTRY METHOD 12/07/2024 11:[address] [facility] Chloride 105 96 - 110 mmol/L LAB CHEMISTRY METHOD 12/07/2024 11:[address] [facility] CO2 29 21 - 32 mmol/L LAB CHEMISTRY METHOD 12/07/2024 11:[address] [facility] Anion Gap 6 3 - 11 LAB CHEMISTRY METHOD 12/07/2024 11:[address] [facility] Glucose 120(H) 70 - 100 mg/dL LAB CHEMISTRY METHOD 12/07/2024 11:[address] [facility] BUN 31(H) 5 - 25 mg/dL LAB CHEMISTRY METHOD 12/07/2024 11:[address] [facility] Creatinine 1.46(H) 0.70 - 1.30 mg/dL LAB CHEMISTRY METHOD 12/07/2024 11:[address] [facility] eGFR 49(L) >=60 mL/min/1. 73m2 LAB CHEMISTRY METHOD 12/07/2024 11:[address] [facility] Comment:Calculation based on the??Chronic Kidney Disease Epidemiology Collaboration (CKD-EPI) equation refit??without adjustment for race. BUN/Creatinine Ratio 21.2 LAB CHEMISTRY METHOD 12/07/2024 11:[address] [facility] Calcium 9.3 8.5 - 10.5 mg/dL LAB CHEMISTRY METHOD 12/07/2024 11:[address] [facility] Blood Venous blood specimen / Unknown Venipuncture / Unknown 12/07/2024 6:39 AM EST 12/07/2024 10:43 AM EST us Marianna Ellison MD LAB BLOOD ORDERABLES Fin al Result [facility] [address] [place] [address], [place] [phone] * (ABNORMAL) Complete blood count (12/07/2024 6:39 AM EST) WBC 7.1 4.8 - 10.8 K/mcL LAB HEMETOLOGY METHOD 12/07/2024 11:[address] [facility] RBC 4.50 4.50 - 5.50 M/[facility] LAB HEMETOLOGY METHOD 12/07/2024 11:[address] [facility] Hemoglobin 13.2(L) 13.5 - 17.5 g/dL LAB HEMETOLOGY METHOD 12/07/2024 11:[address] [facility] Hematocrit 42.4 42.0 - 54.0 % LAB HEMETOLOGY METHOD 12/07/2024 11:[address] [facility] MCV 94.6 79.0 - 98.0 FL LAB HEMETOLOGY METHOD 12/07/2024 11:[address] [facility] MCH 29.5 27.0 - 32.0 pcg LAB HEMETOLOGY METHOD 12/07/2024 11:[address] [facility] MCHC 31.1(L) 32.0 - 37.0 g/dL LAB HEMETOLOGY METHOD 12/07/2024 11:[address] [facility] RDW 15.3(H) 11.0 - 15.0 % LAB HEMETOLOGY METHOD 12/07/2024 11:40 AM EST [facility] Platelets 213 130 - 400 K/mcL LAB HEMETOLOGY METHOD 12/07/2024 11:40 AM EST [facility] MPV 11.7(H) 7.0 - 11.0 FL LAB HEMETOLOGY METHOD 12/07/2024 11:40 AM EST [facility] NRBC 0.0 <1.0 % LAB HEMETOLOGY METHOD 12/07/2024 11:40 AM EST [facility] NRBC Absolute 0.00 <0.10 K/mcL LAB HEMETOLOGY METHOD 12/07/2024 11:[address] [facility] Blood Venous blood specimen / Unknown Venipuncture / Unknown 12/07/2024 6:39 AM EST 12/07/2024 10:43 AM EST us Marianna Ellison MD LAB BLOOD ORDERABLES Fin al Result [facility] [address] [place] [address], documented in this encounter Visit Diagnoses Diagnosis Type 2 diabetes mellitus without complications (CMS/HCC V24, CMS/HCC V28) Weakness Other malaise and fatigue documented in this encounter Care Teams Manager Research Relationship Specialty Start Date End Date Maci Carvajal PA [address] [place] [address] PCP - General 06/25/23 documented as of this encounter
--- OUTSIDE RECORDS SUMMARY | 2025-03-01 15:30 | XMS_ITS | Encounter Summary ---
Author Organization [facility] Address [address] [place] [address] Care Team Providers Care Sample Mounter Name Role Phone Maci Carvajal Primary Care Provider [phone] Encounter Details Date Type Department Care Team (Late st Contact Info) Description 12/20/2024 Lab Requisition [facility] - Main Lab 299 [facility] [place] [address] Marianna Ellison MD [address] [address] Weakness; Type 2 diabetes mellitus without complications [...] Description 05/23/2025 10:20 AM EDT Office Visit [facility] [address] [place] [address] Sajan Noriega MD [address] [place] [address] DR[address] [place] [address] documented as of this encounter Procedures Procedure Name Priority Date/Time Associated Diagnosis Comments COMPLETE BLOOD COUNT Routine 12/21/2024 8:52 AM EST Weakness Type 2 diabetes mellitus without complications (CMS/HCC) BASIC METABOLIC PANEL Routine 12/21/2024 8:52 AM EST Weakness Type 2 diabetes mellitus without complications ([facility]/HCC) documented in this encounter Results * (ABNORMAL) Basic metabolic panel (12/21/2024 8:52 AM EST) Sodium 138 133 - 145 mmol/L LAB CHEMISTRY METHOD 12/21/2024 1:[address] [facility] Potassium 4.3 3.5 - 5.5 mmol/L LAB CHEMISTRY METHOD 12/21/2024 1:[address] [facility] Chloride 104 96 - 110 mmol/L LAB CHEMISTRY METHOD 12/21/2024 1:[address] [facility] CO2 24 21 - 32 mmol/L LAB CHEMISTRY METHOD 12/21/2024 1:[address] [facility] Anion Gap 10 3 - 11 LAB CHEMISTRY METHOD 12/21/2024 1:[address] [facility] Glucose 141(H) 70 - 100 mg/dL LAB CHEMISTRY METHOD 12/21/2024 1:[address] [facility] BUN 32(H) 5 - 25 mg/dL LAB CHEMISTRY METHOD 12/21/2024 1:[address] [facility] Creatinine 1.38(H) 0.70 - 1.30 mg/dL LAB CHEMISTRY METHOD 12/21/2024 1:[address] [facility] eGFR 52(L) >=60 mL/min/1. 73m2 LAB CHEMISTRY METHOD 12/21/2024 1:[address] [facility] Comment:Calculation based on the??Chronic Kidney Disease Epidemiology Collaboration (CKD-EPI) equation refit??without adjustment for race. BUN/Creatinine Ratio 23.2 LAB CHEMISTRY METHOD 12/21/2024 1:[address] [facility] Calcium 8.9 8.5 - 10.5 mg/dL LAB CHEMISTRY METHOD 12/21/2024 1:34 PM EST [facility] Blood Venous blood specimen / Unknown Venipuncture / Unknown 12/21/2024 8:52 AM EST 12/21/2024 11:25 AM EST us Marianna Ellison MD LAB BLOOD ORDERABLES Fin al Result [facility] [address] [place] [address], [place] [phone] * (ABNORMAL) Complete blood count (12/21/2024 8:52 AM EST) WBC 9.4 4.8 - 10.8 K/mcL LAB HEMETOLOGY METHOD 12/21/2024 1:[address] [facility] RBC 4.60 4.50 - 5.50 M/[facility] LAB HEMETOLOGY METHOD 12/21/2024 1:[address] [facility] Hemoglobin 13.7 13.5 - 17.5 g/dL LAB HEMETOLOGY METHOD 12/21/2024 1:[address] [facility] Hematocrit 43.7 42.0 - 54.0 % LAB HEMETOLOGY METHOD 12/21/2024 1:[address] [facility] MCV 94.8 79.0 - 98.0 FL LAB HEMETOLOGY METHOD 12/21/2024 1:[address] [facility] MCH 29.7 27.0 - 32.0 pcg LAB HEMETOLOGY METHOD 12/21/2024 1:[address] [facility] MCHC 31.4(L) 32.0 - 37.0 g/dL LAB HEMETOLOGY METHOD 12/21/2024 1:[address] [facility] RDW 15.6(H) 11.0 - 15.0 % LAB HEMETOLOGY METHOD 12/21/2024 1:22 PM EST [facility] Platelets 144 130 - 400 K/mcL LAB HEMETOLOGY METHOD 12/21/2024 1:22 PM EST [facility] MPV 12.2(H) 7.0 - 11.0 FL LAB HEMETOLOGY METHOD 12/21/2024 1:22 PM EST [facility] NRBC 0.0 <1.0 % LAB HEMETOLOGY METHOD 12/21/2024 1:22 PM EST [facility] NRBC Absolute 0.00 <0.10 K/mcL LAB HEMETOLOGY METHOD 12/21/2024 1:22 PM EST [facility] Blood Venous blood specimen / Unknown Venipuncture / Unknown 12/21/2024 8:52 AM EST 12/21/2024 11:28 AM EST us Marianna Ellison MD LAB BLOOD ORDERABLES Fin al Result [facility] [address] [place] [address], documented in this encounter Visit Diagnoses Diagnosis Weakness Other malaise and fatigue Type 2 diabetes mellitus without complications (CMS/HCC V24, CMS/HCC V28) documented in this encounter Care Teams Sample Mounter Relationship Specialty Start Date End Date Maci Carvajal PA [address] [place] [address] PCP - General 06/25/23 documented as of this encounter
--- OUTSIDE RECORDS SUMMARY | 2025-03-01 15:30 | XMS_ITS | Encounter Summary ---
Author Organization [facility] Address [address] [place] [address] Care Team Providers Care Pocket Setter Name Role Phone Maci Carvajal Primary Care Provider [phone] Encounter Details Date Type Department Care Team (Late st Contact Info) Description 12/08/2024 Lab Requisition [facility] - Main Lab [address] [facility] [place] [address] Marianna Ellison MD [address] [address] Type 2 diabetes mellitus without complications (CMS/HCC [...] Description 05/23/2025 10:20 AM EDT Office Visit [facility] [address] [place] [phone] Sajan Noriega MD [address] [place] [address] [address] [place] [address] documented as of this encounter Procedures Procedure Name Priority Date/Time Associated Diagnosis Comments COMPLETE BLOOD COUNT Routine 12/11/2024 7:02 AM EST Type 2 diabetes mellitus without complications ([facility]/HCC) Weakness BASIC METABOLIC PANEL Routine 12/11/2024 7:02 AM EST Type 2 diabetes mellitus without complications ([facility]/HCC) Weakness documented in this encounter Results * (ABNORMAL) Basic metabolic panel (12/11/2024 7:02 AM EST) Sodium 140 133 - 145 mmol/L LAB CHEMISTRY METHOD 12/11/2024 10:58 AM [facility] Potassium 4.4 3.5 - 5.5 mmol/L LAB CHEMISTRY METHOD 12/11/2024 10:58 AM [facility] Chloride 103 96 - 110 mmol/L LAB CHEMISTRY METHOD 12/11/2024 10:58 AM [facility] CO2 31 21 - 32 mmol/L LAB CHEMISTRY METHOD 12/11/2024 10:58 AM [facility] Anion Gap 6 3 - 11 LAB CHEMISTRY METHOD 12/11/2024 10:58 AM [facility] Glucose 125(H) 70 - 100 mg/dL LAB CHEMISTRY METHOD 12/11/2024 10:58 AM [facility] BUN 37(H) 5 - 25 mg/dL LAB CHEMISTRY METHOD 12/11/2024 10:58 AM [facility] Creatinine 1.53(H) 0.70 - 1.30 mg/dL LAB CHEMISTRY METHOD 12/11/2024 10:58 AM [facility] eGFR 46(L) >=60 mL/min/1. 73m2 LAB CHEMISTRY METHOD 12/11/2024 10:58 AM [facility] Comment:Calculation based on the??Chronic Kidney Disease Epidemiology Collaboration (CKD-EPI) equation refit??without adjustment for race. BUN/Creatinine Ratio 24.2 LAB CHEMISTRY METHOD 12/11/2024 10:58 AM [facility] Calcium 8.8 8.5 - 10.5 mg/dL LAB CHEMISTRY METHOD 12/11/2024 10:58 AM [facility] Blood Venous blood specimen / Unknown Venipuncture / Unknown 12/11/2024 7:02 AM EST 12/11/2024 10:05 AM EST us Marianna Ellison MD LAB BLOOD ORDERABLES Fin al Result [facility] [address] [place] [address], [place] [phone] * (ABNORMAL) Complete blood count (12/11/2024 7:02 AM EST) WBC 7.2 4.8 - 10.8 K/mcL LAB HEMETOLOGY METHOD 12/11/2024 10:26 AM [facility] RBC 4.30(L) 4.50 - 5.50 M/mcL LAB HEMETOLOGY METHOD 12/11/2024 10:26 AM [facility] Hemoglobin 12.7(L) 13.5 - 17.5 g/dL LAB HEMETOLOGY METHOD 12/11/2024 10:26 AM [facility] Hematocrit 40.9(L) 42.0 - 54.0 % LAB HEMETOLOGY METHOD 12/11/2024 10:26 AM [facility] MCV 95.6 79.0 - 98.0 FL LAB HEMETOLOGY METHOD 12/11/2024 10:26 AM [facility] MCH 29.7 27.0 - 32.0 pcg LAB HEMETOLOGY METHOD 12/11/2024 10:26 AM [facility] MCHC 31.1(L) 32.0 - 37.0 g/dL LAB HEMETOLOGY METHOD 12/11/2024 10:26 AM [facility] RDW 15.8(H) 11.0 - 15.0 % LAB HEMETOLOGY METHOD 12/11/2024 10:26 AM EST [facility] Platelets 191 130 - 400 K/mcL LAB HEMETOLOGY METHOD 12/11/2024 10:26 AM [facility] MPV 11.9(H) 7.0 - 11.0 FL LAB HEMETOLOGY METHOD 12/11/2024 10:26 AM EST [facility] NRBC 0.0 <1.0 % LAB HEMETOLOGY METHOD 12/11/2024 10:26 AM EST [facility] NRBC Absolute 0.00 <0.10 K/mcL LAB HEMETOLOGY METHOD 12/11/2024 10:26 AM [facility] Blood Venous blood specimen / Unknown Venipuncture / Unknown 12/11/2024 7:02 AM EST 12/11/2024 10:05 AM EST us Marianna Ellison MD LAB BLOOD ORDERABLES Fin al Result [facility] [address] [place] [address], documented in this encounter Visit Diagnoses Diagnosis Type 2 diabetes mellitus without complications (CMS/HCC V24, CMS/HCC V28) Weakness Other malaise and fatigue documented in this encounter Care Teams Pocket Setter Relationship Specialty Start Date End Date Maci Carvajal PA [address] [place] [address] PCP - General 06/25/23 documented as of this encounter
--- OUTSIDE RECORDS SUMMARY | 2025-03-01 15:30 | XMS_ITS ---
Author Organization [facility] Address [address] [place] [address] Care Team Providers Care Corrective Therapist Name Role Phone Brennan Prince MD Primary Care Provider Unavailab Piper Gonzalez Unavailable [phone] Maci Carvajal Unavailable Unavailable Allergies No Known Allergies REASON FOR VISIT At Risk Footcare Medications Medication SIG (Take, Route, Frequency, Duration) Notes Start Date End Date Status Clopidogrel Bisulfate 75 MG Oral for 30 Not-Taking Extra Depth Orthopedic Shoes (1 Pair) with Customized Heat Molded Multidensity Innersoles (3 Pair) as directed Dx: NIDDM/Polyneuropathy (E11.42), Hammertoe Foot Deformity (M20.41,M20.42), Preulcerative Skin Lesion(s) (L85.1 05/24/2020 Not-Taking Extra Depth Orthopedic Shoes (1 Pair) with Customized Heat Molded Multidensity Innersoles (3 Pair) as directed Dx: IDDM/Polyneuropathy (E10.42), Hammertoe Foot Deformity (M20.41), Preulcerative Skin Lesion(s) (L85.1) for 365 days 11/30/2019 Not-Taking Ammonium Lactate 12 % 1 application to affected area Externally to feet Twice a day for 30 days Not-Taking Extra Depth Orthopedic Shoes (1 Pair) with Customized Heat Molded Multidensity Innersoles (3 Pair) as directed Dx: IDDM/Polyneuropathy (E10.42), Hammertoe Foot Deformity (M20.41,M20.42), Preulcerative Skin Lesion(s) (L85.1) Not-Taking Keflex 500 MG 1 capsule Orally jacek ry 12 hrs for 10 day(s) 05/12/2022 Not-Taking Silvadene 1 % 1 application Cone Cleaner ally Once a day for 30 days 04/24/2022 Not-Takin g Xarelto Not-Taking Cephalexin Not-Takin g HumaLOG Not-Taking Ammonium Lactate 12 % 1 application Exte rnally Twice a day for 30 days Active AmLactin 12 % 1 application to affected area Externally Twice a day to feet for 30 days 08/17/2023 Active Farxiga 10 MG 1 tablet Orally Once a day for 30 day(s) Not-Taking Compression Stockings 20-30mm Hg as directed 10/10/2021 Active Lisinopril 5 MG 1 tablet Orally Once a day Active Furosemide Active Aspirin 81 MG Orally Once a day Active oxyCODONE ER Not-Shawn ing Amoxicillin-Pot Clavulanate Not-Taking Extra Depth Orthopedic Shoes (1 Pair) with Customized Heat Molded Multidensity Innersoles (3 Pair) as directed Dx: NIDDM/Polyneuropathy (E11.42), Hammertoe Foot Deformity (M20.41,M20.42), Preulcerative Skin Lesion(s) (L85.1 07/08/2021 Active Vitamin C 500 MG Orally Act cheo Trulicity Active Tiotropium [place]rington Monohydrate Active Torsemide 20 MG 1 tablet Orally 1in am 1 in pm every other night Active Carvedilol 12.5 MG 1 tablet with food Orally twice a day Active Lantus Active Omeprazole 20 MG Orally Act cheo Isosorbide Mononitrate ER 60 MG 1 tablet in the morning Orally Once a day Active Symbicort 80-4.5 MCG/ACT 2 puffs Inhalat ion Twice a day Active PARoxetine HCl 20 MG 1 tablet in the mor isauro Orally Once a day Active Digoxin 125 MCG 1 tablet Oral Once a day Active Atorvastatin Calcium 40 MG Orally Active Allopurinol 100 MG as directed Orally Active Albuterol Active Vitamin D3 Active NovoLOG Active Stimulant Laxative A ctive Jardiance 10 MG 1 tablet Orally Once a day Active Magnesium Oxide Acti ve Social History Tobacco Use: Social History Observation Description Date Details (start date - stop date) Former Smoker NA - NA Tobacco Use/Smoking Question Answer Notes Are you a: former smoker When did you stop smoking? 35 yrs ago How long has it been since you last smoked? < 1 month Additional Findings: Tobacco Non-User Ex-cigaret te smoker Alcohol Screen Question Answer Notes Did you have a drink containing alcohol in the p ast year? No Points 0 Interpretation Negative Tobacco use other than smoking: Question Answer Notes Are you an other tobacco user? 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 (L97.809) Active confirmed Vital Signs Height 6 ft 1 in in 09/13/2024 Weight 206 lbs 09/13/2024 BMI 27.18 kg/m2 09/13/2024 Procedures Procedure Date Ordered Date Performed Result Body Sit e 34850-CPKP SKIN LESIONS, OVER 4 09/13/2024 N/A Encounters Encounter Location Date Provider Diagnosis [facility] [address] [address] 09/13/2024 Piper Black Type 2 diabetes callie itus with diabetic polyneuropathy E11.42 ; History of below-knee amputation of right lower extremity Z89.511 ; History of amputation of lesser toe of left foot Z89.422 ; History of amputation of great toe Z89.419 ; Other complications of amputation stump T87.89 and 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 unspecified severity L97.809 Assessments Encounter Date Diagnosis (ICD Code) Assessment Notes Treatment Notes Treatment Clinical Notes Section Notes 09/13/2024 Type 2 diabetes mellitus with diabetic polyneuropathy (ICD-10 - E11.42) 09/13/2024 History of below-knee amputation of right lower extremity (ICD-10 - Z89.511) 09/13/2024 History of amputation of lesser toe of left foot (ICD-10 - Z89.422) 09/13/2024 History of amputation of great toe (ICD-10 - Z89.419) 09/13/2024 Other complications of amputation stump (ICD-10 - T87.89) 09/13/2024 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 unspecified severity (ICD-10 - L97.809) Plan Of Treatment Pending Test Test Name Order Date 72527-IAGQ SKIN LESIONS, OVER 4 09/13/20 24 Next Appt Details Follow Up: 3 Months, Reason: Procedure Notes * Category Sub-Category Detail Notes Keratoma Treatment Parring or Cutting o f Benign Hyperkeratotic Lesion(s) 36053 ( More than 4 Lesions ) - The Benign hyperkeratotic lesions, as described above were pared, and/or cut utilizing a sterile 15 blade, tissue nippers, and/or dremel Progress Notes * Jim AUGUSTIN ADOB:[birth year] (79 yo M)Acc No.[id number]:09/13/2024 Progress Note Patient:?Jim AUGUSTIN A Provider:?Piper Santos DPM :1945???Age:79 Y???Sex:Male Jean-Claude e:09/13/2024 Address:[address] [place], [place] [id number] Pcp:Brennan Prince MD Subjective: * Chief Complaints: * ???At Risk Footcare * HPI: ???At Risk footcare:?Pt States Last PCP Visit:?Date?07/04/2024 ? 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 * ROS:?General/Constitutional:?Nausea?denies.?Vomiting?denies.?Hunger Thirst?denies.?Loss appetite?denies.?Chills?denies.?Fatigue?denies.?Fever?denies.?Night Sweats?denies.?Unexplained weight loss?denies.?Unexplained weight gain?denies.?HEENTM:?Dentures?denies.?Dizziness?denies.?Glasses/contacts?denies.?Retinopathy?den ies.?Blurred/double vision?denies.?TMJ?denies.?Discharge/drainage?denies.?Implants?denies.?Sore throat?denies.?Dental implants?denies.?Hard of hearing ?denies.?Difficulty chewing/swallowing/speaking?denies.?Nose bleeds?denies.?Sore mouth?denies.?Respiratory:?On O xygen?denies.?Pneumonia/pleurisy?denies.?Bronchitis?denies.?Emphysema?denies.?Co ughing?denies.?Cough blood?denies.?Shortness of breath?denies.?Wheezing?denies.?Cardiovascular:?Pacemaker?denies.?MVP?denies.?WPW?denies.?CHF?denies.?Heart attack?denies.?Septal defect?denies.?Rapid beat?denies.?Chest pain ?denies.?Atrial Fib.?denies.?Murmur/Palpitations?denies.?Gastrointestinal:?Hemorrhoids?denies.?Stomach/Abdominal pain?denies.?Dark blood stool?denies.?Irritable bowel ?denies.?Constipation?denies.?Diarrhea?denies.?Hematology:?Swelling?denies.?Clots?denies.?Varicose Veins?denies.?Bruising?denies.?Bleeding problem?denies.?Genitourinary:?Blood urine?denies.?Frequent/Painfu/urination/bladder control?denies.?Kidney stones?denies.?Infection (UTI)?denies.?Nephropathy?denies.?sex trans dis (STD)?denies.?Prostate?denies.?Musculoskeletal:?Hammertoes?denies.?Bunions?denies.?Back Pain?denies.?Muscle Cramps/ Resting?denies.?Muscle cramps / walking?denies.?Generalized aches and pains?denies.?Weakness?denies.?Integ.:?Jarrett?denies.?Scars?denies.?Corns/calluses?denies.?Ingrown nails?denies.?Painful nails?denies.?Open Sores?denies.?Rashes?denies.?Neurologic:?Difficulty sleeping?denies.?Brain disorder?denies.?Numbness?denies.?Balance t rouble?denies.?Confusion?denies.?Fainting/blackouts?denies.?Tingling?denies.?Jn mors?denies.? * Medical History:? * Surgical History:?arm surger y 10/2016cataract surgery 09/21/18TMA - Left 09/05/2019 * Hospitalization/Major Diagno stic Procedure:?[facility] colonoscopy 2013B- CHF, fluid in lungs - infected toe 10/31/13-11/04/13[facility] [place], UTI, blood in urine 07/16/15[place]neum[place] [facility] 6 days 12/2015[facility] De[facility] heart attack 10/2016[place]neum[place] 10/2016[facility] by ambulance, kidney's were shutting down 10/24/18[facility] High blood pressure 01/05/19[facility] for 11 days then rehab 07/25/19[facility] leg wound 09/2020[facility] low BP 05/31[facility] Wax build up [facility] constipation 06/12[facility]- CHF and COPD 12/28-[facility] Rectal bleed [facility] wound left ankle 05/2024fall - rehab 5 weeks 2023 * Family History:?Mother: dece ased, diagnosed with Unspecified essential hypertension, Other malignant neoplasm of unspecified site.?Father: , diagnosed with Diabetic - NIDDM, Other malignant neoplasm of unspecified site, Unspecified essential hypertension.?Daughter(s): alive.?Son(s): alive.?Spouse: alive.? * Social History:?Tobacco Use:?Tobacco Use/Smoking?Are you a:?former smoker ?When did you stop smoking??35 yrs ago ?How long has it been since you last smoked??< 1 month ?Additional Findings: Tobacco Non-User?Ex-cigarette smoker ?Tobacco use other than smoking?Are you an other tobacco user??No ???Drugs/Alcohol:?Drugs?Have you used drugs other than those for medical reasons in the past 12 months??No ?Alcohol Screen?Did you have a drink containing alcohol in the past year??No ?Points?0 ?Interpretation?Negative ???Miscellaneous:?Caffeine: no. ?Children: yes, two. ?Exercise: no. ?Marital status: . ?Occupation: retired. * Medications:?TakingNovoLOG J ardiance 10 MG Tablet 1 tablet Orally Once a day Stimulant Laxative Magnesium Oxide Vitamin D3 Albuterol Allopurinol 100 MG Tablet as directed Orally Atorvastatin Calcium 40 MG Tablet Orally Digoxin 125 MCG Tablet 1 tablet Oral Once a day Lantus Isosorbide Mononitrate ER 60 MG Tablet Extended Release 24 Hour 1 tablet in the morning Orally Once a day Omeprazole 20 MG Capsule Delayed Release Orally PARoxetine HCl 20 MG Tablet 1 tablet in the morning Orally Once a day Symbicort 80-4.5 MCG/ACT Aerosol 2 puffs Inhalation Twice a day Carvedilol 12.5 MG Tablet 1 tablet with food Orally twice a day Torsemide 20 MG Tablet 1 tablet Orally 1in am 1 in pm every other night Vitamin C 500 MG Capsule Orally Tiotropium [place]rington Monohydrate Trulicity Aspirin 81 MG Tablet Orally Once a day Furosemide Extra Depth Orthopedic Shoes (1 Pair) with Customized Heat Molded Multidensity Innersoles (3 Pair) as directed Dx: NIDDM/Polyneuropathy (E11.42), Hammertoe Foot Deformity (M20.41,M20.42), Preulcerative Skin Lesion(s) (L85.1 Compression Stockings 20- 30mm Hg closed toe- knee high as directed Lisinopril 5 MG Tablet 1 tablet Orally Once a day AmLactin 12 % Lotion 1 application to affected area Externally Twice a day to feet Ammonium Lactate 12 % Cream 1 application Externally Twice a day Taking NovoLOG Taking Jardiance 10 MG Tablet 1 tablet Orally Once a day Taking Stimulant Laxative Taking Magnesium Oxide Taking Vitamin D3 Taking Albuterol Taking Allopurinol 100 MG Tablet as directed Orally Taking Atorvastatin Calcium 40 MG Tablet Orally Taking Digoxin 125 MCG Tablet 1 tablet Oral Once a day Taking Lantus Taking Isosorbide Mononitrate ER 60 MG Tablet Extended Release 24 Hour 1 tablet in the morning Orally Once a day Taking Omeprazole 20 MG Capsule Delayed Release Orally Taking PARoxetine HCl 20 MG Tablet 1 tablet in the morning Orally Once a day Taking Symbicort 80- 4.5 MCG/ACT Aerosol 2 puffs Inhalation Twice a day Taking Carvedilol 12.5 MG Tablet 1 tablet with food Orally twice a day Taking Torsemide 20 MG Tablet 1 tablet Orally 1in am 1 in pm every other night Taking Vitamin C 500 MG Capsule Orally Taking Tiotropium [place] Monohydrate Taking Trulicity Taking Aspirin 81 MG Tablet Orally Once a day Taking Furosemide Taking Extra Depth Orthopedic Shoes (1 Pair) with Customized Heat Molded Multidensity Innersoles (3 Pair) as directed Dx: NIDDM/Polyneuropathy (E11.42), Hammertoe Foot Deformity (M20.41,M20.42), Preulcerative Skin Lesion(s) (L85.1 Taking Compression Stockings 20-30mm Hg closed toe- knee high as directed Taking Lisinopril 5 MG Tablet 1 tablet Orally Once a day Taking AmLactin 12 % Lotion 1 application to affected area Externally Twice a day to feet Taking Ammonium Lactate 12 % Cream 1 application Externally Twice a day Not-Taking/PRNAmoxicillin-Pot Clavulanate oxyCODONE ER Farxiga 10 MG Tablet 1 tablet Orally Once a day HumaLOG Silvadene 1 % Cream 1 application Externally Once a day Keflex 500 MG Capsule 1 capsule Orally every 12 hrs Cephalexin Xarelto Extra Depth Orthopedic Shoes (1 Pair) with Customized Heat Molded Multidensity Innersoles (3 Pair) as directed Dx: IDDM/Polyneuropathy (E10.42), Hammertoe Foot Deformity (M20.41,M20.42), Preulcerative Skin Lesion(s) (L85.1) Ammonium Lactate 12 % Cream 1 application to affected area Externally to feet Twice a day Extra Depth Orthopedic Shoes (1 Pair) with Customized Heat Molded Multidensity Innersoles (3 Pair) as directed Dx: IDDM/Polyneuropathy (E10.42), Hammertoe Foot Deformity (M20.41), Preulcerative Skin Lesion(s) (L85.1) Extra Depth Orthopedic Shoes (1 Pair) with Customized Heat Molded Multidensity Innersoles (3 Pair) as directed Dx: NIDDM/Polyneuropathy (E11.42), Hammertoe Foot Deformity (M20.41,M20.42), Preulcerative Skin Lesion(s) (L85.1 Clopidogrel Bisulfate 75 MG Tablet Oral Medication List reviewed and reconciled with the patientNot-Taking/PRN Amoxicillin-Pot Clavulanate Not-Taking/PRN oxyCODONE ER Not-Taking/PRN Farxiga 10 MG Tablet 1 tablet Orally Once a day Not-Taking/PRN HumaLOG Not-Taking/PRN Silvadene 1 % Cream 1 application Externally Once a day Not- Taking/PRN Keflex 500 MG Capsule 1 capsule Orally every 12 hrs Not-Taking/PRN Cephalexin Not-Taking/PRN Xarelto Not-Taking/PRN Extra Depth Orthopedic Shoes (1 Pair) with Customized Heat Molded Multidensity Innersoles (3 Pair) as directed Dx: IDDM/Polyneuropathy (E10.42), Hammertoe Foot Deformity (M20.41,M20.42), Preulcerative Skin Lesion(s) (L85.1) Not-Taking/PRN Ammonium Lactate 12 % Cream 1 application to affected area Externally to feet Twice a day Not-Taking/PRN Extra Depth Orthopedic Shoes (1 Pair) with Customized Heat Molded Multidensity Innersoles (3 Pair) as directed Dx: IDDM/Polyneuropathy (E10.42), Hammertoe Foot Deformity (M20.41), Preulcerative Skin Lesion(s) (L85.1) Not-Taking/PRN Extra Depth Orthopedic Shoes (1 Pair) with Customized Heat Molded Multidensity Innersoles (3 Pair) as directed Dx: NIDDM/Polyneuropathy (E11.42), Hammertoe Foot Deformity (M20.41,M20.42), Preulcerative Skin Lesion(s) (L85.1 Not-Taking/PRN Clopidogrel Bisulfate 75 MG Tablet Oral Medication List reviewed and reconciled with the patient * Allergies:?N.K.D.A.yes[Aller gies Verified] Objective: * Vitals:?Ht: 6 ft 1 in, Wt: 2 06, BMI: 27.18, Shoe size: 15, BS: 188, Wt-k.44 kg. * ???Past Orders: Lab:HEMOGLOBIN A1C (GLYCOHEM OGLOBIN) * Collection Date 04/14/2024 04/14/2024 Collection Time 02:10 PM Order Date 04/14/2024 04/14/2024 HEMOGLOBIN A1C % (HH) 7.1 NR HEMOGLOBIN A1C (HH) NR 7.1 * Examination: ???Ophthalmology Referral: ?DIABETES EYE EXAM?Procedure Performed:?Yes ?Date of Exam Performed?01/31/2024 ?Findings of Diabetic Eye Exam:?retinopathy?Dermatologic: ?SKIN FINDINGS:?Skin shows sign(s) of, Cont. dryness, scaling, in a stocking fashion, no fissure(s) present, left , , Skin exam reveals Keratotic lesion(s) located at , distal amputation site left , Heel(s) , Left , SUB MTH (s) , 5 left , Midfoot , Left.?ULCER:?Distal right stump (BKA), LOCATION, SIZE, 10 mm X 8 mm X 2mm, BASE, granular, RIM, hyperkeratotic, UNDERMINING, absent, TRACKING, Full thickness breakdown of skin, DRAINAGE, serosanguineous, mild, NECROTIC TISSUE, loosely-adherent, yellow slough, MALODOR, absent, CALOR, absent, ERYTHEMA, absent, PAIN ON PALPATION, present.?General Examination: ?GENERAL APPEARANCE:?Reveals a pleasant, alert, well nourished, well- developed, well hydrated individual, who demonstrates proper attention to hygiene/body habitus, and is in no acute distress, Pt serves as own historian for office visit today.?ORIENTED:?person, place, and time.?FOOT EXAM:?Lower Extremity Neurological Exam performed:?Yes ?Visual exam of foot performed:?Yes ?Date?09/13/2024 ?Sensory testing performed:?sensations diminished ?Sensory and motor testing performed:?sensations diminished ?Pedal pulse taking performed:?1+ ?Footwear Evaluation?Foot Exam not performed:?Medical Reason??? 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 Plan: * Treatment: * Procedures:?Keratoma Treatment:?Parring or Cutting of Benign Hyperkeratotic Lesion(s)?98602 ( More than 4 Lesions ) - The Benign hyperkeratotic lesions, as described above were pared, and/or cut utilizing a sterile 15 blade, tissue nippers, and/or dremel.? * Procedure Codes:?00677 TRIM SKIN LESIONS, OVER 4 * Preventive Medicine:? ??Counseling:?Discussion:?-13: Office or other outpatient visit for the evaluation and management of an established patient, which required a medically appropriate history and/or examination and LOW level of DECISION MAKING for: 1 STABLE ACUTE UNCOMPLICATED PROBLEM, 2 OR MORE MINOR PROBLEMS, OR 1 STABLE CHRONIC PROBLEM, THAT POSE(S) A LOW RISK FOR MORBIDITY/MORTALITY. The visit on the day of the encounter encompassed interpreting the data and educating the patient as to the nature of their condition, treatment options available according to their individual PMH, meds, allergies, and overall health/living conditions, as well as any potential risks or complications that may occur from a failure to adhere to, and participate in, the recommended course of therapy. The discussion included a complete verbal, and/or written explanation of the examination results, any x-rays taken, the proposed diagnosis, and outline of the treatment plan. A schedule for future care needs was also explained. The patient verbalized an understanding of the instructions at this time and agreed to be an active participant in their treatment. If the patient should think of any questions or concerns after the visit, I have encouraged the patient to call the office.?Ulcer:?A detailed plan of care was reviewed with the patient. We emphasized the fact that the patient takes on an active participating role in the treatment process and emphasized to them that they are an included, valued, and important member of the wound healing team in order to reach an expedient successful outcome. The patient agreed to follow their medically recommended diet while increasing their protein intake if safely able to do so, maintain proper bodily hydaration, abide by weight-bearing restrictions at all times, quit all current smoking habits if any, and diligently follow any/all dressing change instructions. It was clearly made known to the patient that if they fail to do their part, they will likely extend their course of treatment as well as possibly increase their risk of adverse events including amputation. The patient was instructed on importance of proper wound care consisting of pressure reduction, and proper maintainance of a moist wound environment. The patient is to cleanse the wound with warm soapy water/peroxide/saline, or betadine BID based on product availability. The patient is to apply ( __ Neosporin, Polysporin, or Triple, __ ) Antibiotic to the wound and cover with a DSD as directed. The patient was instructed to change dressings according to orders, or PRN saturation, leaks. The patient was instructed to monitor and report any signs or symptoms of infection or any untoward reactions. Precautions Taken: Offloading/Pressure reduction via rest/ limited activity to essential to daily life only, cane/ crutches/ walker/ knee scooter/ wheel chair, shoe modification, accommodative padding, sharp debridement, and take/apply medication as directed. THE GOALS of wound debridement to remove devitilized tissue, decrease risk for infection, promote wound healing and prevent further complication were discussed/reviewed. pt referred to gautam for evaluation- Pt relates they are scheduled next week.? ??Screening/Special Tests:?Fall Risk?Assessment:?Not performed, due to medical reason ?Plan of Care:?Not documented, due to medical reason ?Screening:?Two or more falls without injury in the past year ?FALLS: Screening for Future Fall Risk?Have you had two or more falls in the past year??Yes ?Have you had any falls with injury in the past year??No * Follow Up:?3 Months * Images: * Sign off status: Completed true * Provider:?Piper Santos DPM Date:?2023 Generated for Rox alcaraz/Rakesh/eTransmitting on:?03/01/2025 03:30 PM EDT History and Physical Notes * HPI (History of Present Illness) Category Sub-Category Detail Notes Category Not es At Risk footcare Pt States Last PCP Visit: Date: 4 S/p BKA right S/p BKA right S/p BKA right S/p BKA right Examination Category Sub-Category Detail Notes Category Not es Dermatologic SKIN FINDINGS: Skin shows sign( s) of, Cont. dryness, scaling, in a stocking fashion, no fissure(s) present, left , , Skin exam reveals Keratotic lesion(s) located at , distal amputation site left , Heel(s) , Left , SUB MTH (s) , 5 left , Midfoot , Left ULCER: Distal right stump ( BKA), LOCATION, SIZE, 10 mm X 8 mm X 2mm, BASE, granular, RIM, hyperkeratotic, UNDERMINING, absent, TRACKING, Full thickness breakdown of skin, DRAINAGE, serosanguineous, mild, NECROTIC TISSUE, loosely-adherent, yellow slough, MALODOR, absent, CALOR, absent, ERYTHEMA, absent, PAIN ON PALPATION, present General Examination GENERAL APPEARANCE: Reveals a pleasant, alert, well nourished, well-developed, well hydrated individual, who demonstrates proper attention to hygiene/body habitus, and is in no acute distress, Pt serves as own historian for office visit today FOOT EXAM: Lower Extremity Neurological Exa m performed:: Yes Visual exam of foot performed:: Yes Date: 09/13/2024 Sensory testing performed:: sensations d iminished Sensory and motor testing performed:: se nsations diminished Pedal pulse taking performed:: 1+ ORIENTED: person, place, and t jagdish Footwear Evaluation Foot Exam not performed:: Me dical Reason Ophthalmology Referral DIABETES EYE EXAM Procedure Perform ed:: Yes ?Date of Exam Performed: 01/31/2024 Findings of Diabetic Eye Exam:: retinopa thy
--- OUTSIDE RECORDS SUMMARY | 2025-03-01 15:31 | XMS_ITS | Encounter Summary ---
Author Organization [facility] Address [address] [place] [address] Care Team Providers Care Coverstitch Machine Operator Name Role Phone Maci Carvajal Primary Care Provider [phone] Reason for Visit * Reason Onset Date Comments Med Refill 02/26/2025 Encounter Details Date Type Department Care Team (Late st Contact Info) Description 02/26/[address] [facility] [address] [place] [address] [place] [phone] Sarai Aden NP [address] [place] [address] [address] [place] [address] Med Refill Social History Tobacco Use Types Packs/Day Years [...] on file documented as of this encounter Ordered Prescriptions Prescription Sig Dispense Quantity Refills Last Filled Start Date End Date carvediloL (COREG) 6.25 mg tablet Take 1 tablet (6.25 mg total) by mouth 2 (two) times a day with meals. 180 tablet 2 02/26/2025 documented in this encounter Progress Notes * Shazia Lan RN - 02/26/2025 1:04 PM EDT I spoke to Lizzie and informed her patient needs to have a DIG level drawn prior to sending in Digoxin refills. She stated a nurse from [facility] comes weekly and planning to come or Wednesday of this week. I spoke to Pamela from [facility]. She said nurse Katey will be seeing patient on 03/01/25. She advised I can fax the Dig level for the nurse to draw (fax [phone]). DIG level ordered and faxed. Confirmation received. * Sarai Aden NP - 02/26/2025 12:28 PM EDT Yes. ty * Shazia Lan RN - 02/26/2025 11:44 AM EDT Jim Augustin is a 79 y.o. male, followed by ALBERTO Saari Aden, previous Dr. Cook patient;pending an appt with Dr. Noriega 05/2025, with cardiac history of atrial fibrillation, HTN, HLD CA s/p [place] 2016 s/p stent and PVD. Carvedilol refills sent Patient had a Digoxin level drawn 10/30/24 that resulted <0.4 ng/mL. Would you like him to have a repeat Digoxin level drawn prior to sending in refills? * Zarina Cassidy - 02/26/2025 11:14 AM EDT Patients called requesting refill for Carvedilol 6.25 mg two tablets daily, and Digoxin 0.125 mg one tablet every other day. Please send 90 day supply to [facility]. documented in this encounter Plan of Treatment Upcoming Encounters Date Type Department Care Team (Late st Contact Info) Description 05/23/2025 10:20 AM EDT Office Visit [facility] [address] [facility] [address] [place] [phone] Sajan Noriega MD [address] [place] [address] [address] [place] [address] Scheduled Orders Name Type Priority Associated Diagnoses Orde r Schedule Digoxin level Lab Routine Atrial fibrillation, unspecified type ([facility] V24, [facility] V28) Expected: 02/26/2025, Expires: 02/26/2026 documented as of this encounter Visit Diagnoses Diagnosis Atrial fibrillation, unspecified type ([facility] V24, [facility] V28)- Primary documented in this encounter Discontinued Medications Medication Sig Discontinue Reason Start Date End Da te carvediloL (COREG) 6.25 mg tablet Take 1 Tablet by mouth 2 times daily (with meals). Reorder 02/02/2024 02/26/2025 documented as of this encounter Care Teams Coverstitch Machine Operator Relationship Specialty Start Date End Date Maci Carvajal PA [address] [place] [phone] PCP - General 06/25/23 documented as of this encounter
--- OUTSIDE RECORDS SUMMARY | 2025-03-01 15:31 | XMS_ITS | Encounter Summary ---
Author Organization [facility] Address [address] [place] [address] Care Team Providers Care Corporate Strategy Associate Name Role Phone Maci Carvajal Primary Care Provider [phone] Encounter Details Date Type Department Care Team (Late st Contact Info) Description 12/27/2024 Lab Requisition [facility] - Main Lab [address] [facility] [place] [address] Marianna Ellison MD [address] [address] Unspecified atrial fibrillation (CMS/HCC V24, CMS/HCC V28); Type 2 diabetes mellitus without complications (CMS/HCC [...] Description 05/23/2025 10:20 AM EDT Office Visit [facility] [address] [facility] [address] [place] [phone] Sajan Noriega MD [address] [place] [address] [address] [place] [address] documented as of this encounter Procedures Procedure Name Priority Date/Time Associated Diagnosis Comments THYROID STIMULATING HORMONE WITH REFLEX TO FREE T4 AND FREE T3 Routine 12/27/2024 6:07 AM EST Unspecified atrial fibrillation (CMS/HCC) Type 2 diabetes mellitus without complications (CMS/HCC) COMPLETE BLOOD COUNT Routine 12/27/2024 6:07 AM EST Unspecified atrial fibrillation (CMS/HCC) Type 2 diabetes mellitus without complications (CMS/HCC) FOLATE Routine 12/27/2024 6:07 AM EST Unspecified atrial fibrillation (CMS/HCC) Type 2 diabetes mellitus without complications (CMS/HCC) VITAMIN B12 Routine 12/27/2024 6:07 AM EST Unspecified atrial fibrillation (CMS/HCC) Type 2 diabetes mellitus without complications (CMS/HCC) COMPREHENSIVE METABOLIC PANEL Routine 12/27/2024 6:07 AM EST Unspecified atrial fibrillation (CMS/HCC) Type 2 diabetes mellitus without complications (CMS/HCC) documented in this encounter Results * Folate (12/27/2024 6:07 AM EST) Folate 9.6 2.8 - 17.0 ng/ml LAB CHEMISTRY METHOD 12/27/2024 11:54 AM EST [facility] Blood Venous blood specimen / Unknown Venipuncture / Unknown 12/27/2024 6:07 AM EST 12/27/2024 9:43 AM EST us Marianna Ellison MD LAB BLOOD ORDERABLES Fin al Result [facility] [address] [place] [address], * Vitamin B12 (12/27/2024 6:07 AM EST) Vitamin B-12 367 250 - 900 pcg/mL LAB CHEMISTRY METHOD 12/27/2024 11:54 AM EST [facility] Blood Venous blood specimen / Unknown Venipuncture / Unknown 12/27/2024 6:07 AM EST 12/27/2024 9:43 AM EST Marianna Ellison MD LAB BLOOD ORDERABLES Fin al Result Performing Organization Address [facility]/ZIP Co de Phone Number [facility] [address] [place] [address], [place] [phone] * Thyroid stimulating hormone with reflex to free t4 and free t3 (12/27/2024 6:07 AM EST) Pathologist [facility] TSH 1.07 0.40 - 4.00 mcIU/mL LAB CHEMISTRY METHOD 12/27/2024 11:37 AM [facility] Blood Venous blood specimen / Unknown Venipuncture / Unknown 12/27/2024 6:07 AM EST 12/27/2024 9:43 AM EST Marianna Ellison MD LAB BLOOD ORDERABLES Fin al Result Performing Organization Address [facility]/ZIP Co de Phone Number [facility] [address] [place] [address], [place] [phone] * (ABNORMAL) Comprehensive metabolic panel (12/27/2024 6:07 AM EST) Sodium 141 133 - 145 mmol/L LAB CHEMISTRY METHOD 12/27/2024 11:55 AM [facility] Potassium 4.0 3.5 - 5.5 mmol/L LAB CHEMISTRY METHOD 12/27/2024 11:55 AM [facility] Chloride 107 96 - 110 mmol/L LAB CHEMISTRY METHOD 12/27/2024 11:55 AM [facility] CO2 24 21 - 32 mmol/L LAB CHEMISTRY METHOD 12/27/2024 11:55 AM [facility] Anion Gap 10 3 - 11 LAB CHEMISTRY METHOD 12/27/2024 11:55 AM [facility] Glucose 138(H) 70 - 100 mg/dL LAB CHEMISTRY METHOD 12/27/2024 11:55 AM [facility] BUN 19 5 - 25 mg/dL LAB CHEMISTRY METHOD 12/27/2024 11:55 AM [facility] Creatinine 1.12 0.70 - 1.30 mg/dL LAB CHEMISTRY METHOD 12/27/2024 11:55 AM [facility] eGFR 67 >=60 mL/min/1. 73m2 LAB CHEMISTRY METHOD 12/27/2024 11:55 AM [facility] Comment:Calculation based on the??Chronic Kidney Disease Epidemiology Collaboration (CKD-EPI) equation refit??without adjustment for race. BUN/Creatinine Ratio 17.0 LAB CHEMISTRY METHOD 12/27/2024 11:55 AM [facility] Calcium 8.7 8.5 - 10.5 mg/dL LAB CHEMISTRY METHOD 12/27/2024 11:55 AM [facility] AST (SGOT) 23 10 - 42 unit/L LAB CHEMISTRY METHOD 12/27/2024 11:55 AM [facility] ALT (SGPT) 24 10 - 60 unit/L LAB CHEMISTRY METHOD 12/27/2024 11:55 AM [facility] Alkaline Phosphatase 133(H) 42 - 121 unit/L LAB CHEMISTRY METHOD 12/27/2024 11:55 AM [facility] Total Protein 6.3 6.0 - 8.0 g/dL LAB CHEMISTRY METHOD 12/27/2024 11:55 AM [facility] Albumin 3.0(L) 3.2 - 5.0 g/dL LAB CHEMISTRY METHOD 12/27/2024 11:55 AM [facility] Total Bilirubin 0.6 0.0 - 1.4 mg/dL LAB CHEMISTRY METHOD 12/27/2024 11:55 AM [facility] Blood Venous blood specimen / Unknown Venipuncture / Unknown 12/27/2024 6:07 AM EST 12/27/2024 9:43 AM EST us Marianna Ellison MD LAB BLOOD ORDERABLES Fin al Result [facility] [address] [place] [address], * (ABNORMAL) Complete blood count (12/27/2024 6:07 AM EST) [facility] WBC 5.4 4.8 - 10.8 K/mcL LAB HEMETOLOGY METHOD 12/27/2024 10:59 AM [facility] RBC 4.50 4.50 - 5.50 M/mcL LAB HEMETOLOGY METHOD 12/27/2024 10:59 AM [facility] Hemoglobin 13.1(L) 13.5 - 17.5 g/dL LAB HEMETOLOGY METHOD 12/27/2024 10:59 AM [facility] Hematocrit 41.3(L) 42.0 - 54.0 % LAB HEMETOLOGY METHOD 12/27/2024 10:59 AM [facility] MCV 92.0 79.0 - 98.0 FL LAB HEMETOLOGY METHOD 12/27/2024 10:59 AM [facility] MCH 29.2 27.0 - 32.0 pcg LAB HEMETOLOGY METHOD 12/27/2024 10:59 AM [facility] MCHC 31.7(L) 32.0 - 37.0 g/dL LAB HEMETOLOGY METHOD 12/27/2024 10:59 AM [facility] RDW 15.2(H) 11.0 - 15.0 % LAB HEMETOLOGY METHOD 12/27/2024 10:59 AM [facility] Platelets 158 130 - 400 K/mcL LAB HEMETOLOGY METHOD 12/27/2024 10:59 AM EST [facility] MPV 11.9(H) 7.0 - 11.0 FL LAB HEMETOLOGY METHOD 12/27/2024 10:59 AM EST [facility] NRBC 0.0 <1.0 % LAB HEMETOLOG METHOD 12/27/2024 10:59 AM EST [facility] NRBC Absolute 0.00 <0.10 K/mcL LAB HEMETOLOGY METHOD 12/27/2024 10:59 AM EST [facility] Blood Venous blood specimen / Unknown Venipuncture / Unknown 12/27/2024 6:07 AM EST 12/27/2024 9:43 AM EST us Marianna Ellison MD LAB BLOOD ORDERABLES Fin al Result [facility] [address] [place] [address], documented in this encounter Visit Diagnoses Diagnosis Unspecified atrial fibrillation (CMS/HCC V24, CMS/HCC V28) Type 2 diabetes mellitus without complications (CMS/HCC V24, CMS/HCC V28) documented in this encounter Care Teams Corporate Strategy Associate Relationship Specialty Start Date End Date Maci Carvajal PA [address] [place] [phone] PCP - General 06/25/23 documented as of this encounter
--- OUTSIDE RECORDS SUMMARY | 2025-03-01 15:31 | XMS_ITS | Patient Health Record ---
Author Organization [facility] Address [address] [facility] [place] [address] Care Team Providers Care Motorcycle Riding Instructor Name Role Phone Brennan Prince MD Primary Care Provider Unavailab lily SantosPiper Unavailable [phone] Maci Carvajal Unavailable Unavailable Allergies No Known Allergies Results Component Value Reference Range Notes HEMOGLOBIN A1C (GLYCOHEMOGLO BIN) (Not yet reviewed by provider) Interpretation: Performing Lab: Notes/Report: HEMOGLOBIN A1C (HH) 7.1 HEMOGLOBIN A1C (GLYCOHEMOGLO BIN) Reviewed date:11/04/2024 02:11:54 PM Interpretation: Performing Lab: Notes/Report: HEMOGLOBIN A1C % (HH) 7.1 Reason For Referral No Information Medications Medication SIG (Take, Route, Frequency, Duration) Notes Start Date End Date Status Symbicort 80-4.5 MCG/ACT 2 puffs Inhalat ion Twice a day Active Ammonium Lactate 12 % 1 application to affected area Externally to feet Twice a day for 30 days Not-Taking PARoxetine HCl 20 MG 1 tablet in the mor isauro Orally Once a day Active Extra Depth Orthopedic Shoes (1 Pair) with Customized Heat Molded Multidensity Innersoles (3 Pair) as directed Dx: IDDM/Polyneuropathy (E10.42), Hammertoe Foot Deformity (M20.41,M20.42), Preulcerative Skin Lesion(s) (L85.1) Not-Taking Torsemide 20 MG 1 tablet Orally 1in am 1 in pm every other night Active Carvedilol 12.5 MG 1 tablet with food Orally twice a day Active Furosemide Active Aspirin 81 MG Orally Once a day Active NovoLOG Active oxyCODONE ER Not-Shawn ing Amoxicillin-Pot Clavulanate Not-Taking Vitamin C 500 MG Orally Act cheo Clopidogrel Bisulfate 75 MG Oral for 30 Not-Taking Extra Depth Orthopedic Shoes (1 Pair) with Customized Heat Molded Multidensity Innersoles (3 Pair) as directed Dx: NIDDM/Polyneuropathy (E11.42), Hammertoe Foot Deformity (M20.41,M20.42), Preulcerative Skin Lesion(s) (L85.1 05/24/2020 Not-Taking Trulicity Active Tiotropium [place] Monohydrate Active Extra Depth Orthopedic Shoes (1 Pair) with Customized Heat Molded Multidensity Innersoles (3 Pair) as directed Dx: IDDM/Polyneuropathy (E10.42), Hammertoe Foot Deformity (M20.41), Preulcerative Skin Lesion(s) (L85.1) for 365 days 11/30/2019 Not-Taking Albuterol Active Stimulant Laxative A ctive Compression Stockings 20-30mm Hg as directed 10/10/2021 Active Jardiance 10 MG 1 tablet Orally Once a day Active Extra Depth Orthopedic Shoes (1 Pair) with Customized Heat Molded Multidensity Innersoles (3 Pair) as directed Dx: NIDDM/Polyneuropathy (E11.42), Hammertoe Foot Deformity (M20.41,M20.42), Preulcerative Skin Lesion(s) (L85.1 07/08/2021 Active Vitamin D3 Active Magnesium Oxide Acti ve Lisinopril 5 MG 1 tablet Orally Once a day Active Lantus Active Keflex 500 MG 1 capsule Orally jacek ry 12 hrs for 10 day(s) 05/12/2022 Not-Taking Digoxin 125 MCG 1 tablet Oral Once a day Active Silvadene 1 % 1 application Neurodiagnostic Technologist ally Once a day for 30 days 04/24/2022 Not-Takin g Omeprazole 20 MG Orally Act cheo Xarelto Not-Taking Isosorbide Mononitrate ER 60 MG 1 tablet in the morning Orally Once a day Active Cephalexin Not-Takin g Ammonium Lactate 12 % 1 application Exte rnally Twice a day for 30 days Active AmLactin 12 % 1 application to affected area Externally Twice a day to feet for 30 days 08/17/2023 Active Atorvastatin Calcium 40 MG Orally Active HumaLOG Not-Taking Allopurinol 100 MG as directed Orally Active Farxiga 10 MG 1 tablet Orally Once a day for 30 day(s) Not-Taking Immunizations Vaccine Route Administration Date Status Comme nts COVID-19 Pfizer BioNTech Vaccine Unknown 08/28/2021 Administered 1st vaccine 12/05/20 2nd vaccine 12/26/20 Influenza Unknown 03/04/2016 Administered Influenza Unknown 05/06/2017 Administered Influenza Unknown 07/16/2017 Administered Influenza Unknown 07/15/2018 Administered Influenza Unknown 07/16/2019 Administered Influenza Unknown 08/20/2020 Administered Influenza Unknown 08/13/2023 Administered Pneumococcal Unknown 08/09/2015 Administered Social History Tobacco Use: Social History Observation [...] Problem Status W/U Status Risk Notes Problem Acquired hammer toe of right foot (4064786199550663) Other hammer toe(s) (acquired), right foot (M20.41) Active confirmed Problem Acquired hammer toe of left foot (0872712565335969) Other hammer toe(s) (acquired), left foot (M20.42) Active confirmed Problem Chronic ulcer of foot (788596183) Non-pressure chronic ulcer of right heel and midfoot with fat layer exposed (L97.412) Active confirmed Problem 98077143 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 unspecified severity (L97.809) Active confirmed Problem 556436100 Other complications of amputation stump (T87.89) Active confirmed Problem 379199345 Non-pressure chronic ulcer of right heel and midfoot limited to breakdown of skin (L97.411) Active confirmed Problem Chronic ulcer of foot (628475034) Non-pressure chronic ulcer of right heel and midfoot with fat layer exposed (L97.412) Active confirmed Problem Polyneuropathy due to type 2 diabetes mellitus (233294713) Type 2 diabetes mellitus with diabetic polyneuropathy (E11.42) Active confirmed Problem History of amputation of left forefoot (93917836095390724 ) History of amputation of left forefoot (Z89.432) Active confirmed Problem 896824173 Skin ulcer of right heel, limited to breakdown of skin (L97.411) Active confirmed Problem 172026145 History of amputation of great toe (Z89.419) Active confirmed Problem 262354327459825 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) Active confirmed Problem Traumatic amputation of lesser toe of left foot (disorder) (57506194658878) History of amputation of lesser toe of left foot (Z89.422) Active confirmed Vital Signs Height 6 ft 1 in in 09/13/2024 Weight 206 lbs 09/13/2024 BMI 27.18 kg/m2 09/13/2024 Procedures Procedure Date Ordered Date Performed Result Body Sit e 08412-UKJS SKIN LESIONS, OVER 4 05/30/2024 N/A 55370-TMXO SKIN LESIONS, OVER 4 09/13/2024 N/A Encounters Encounter Location Date Provider [facility] [address] 05/30/2024 Piper Santos Type 2 diabetes mellitus with diabetic polyneuropathy E11.42 ; History of below-knee amputation of right lower extremity Z89.511 ; History of amputation of lesser toe of left foot Z89.422 and History of amputation of great toe Z89.[address] [address] 09/13/2024 Piper Santos Type 2 diabetes mellitus with diabetic polyneuropathy E11.42 ; History of below-knee amputation of right lower extremity Z89.511 ; History of amputation of lesser toe of left foot Z89.422 ; History of amputation of great toe Z89.419 ; Other complications of amputation stump T87.89 and 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 unspecified severity L97.809 [facility] [address] [place] [address] 12/12/2024 Piper Santos Assessments Encounter Date Diagnosis (ICD Code) Assessment Notes Treatment Notes Treatment Clinical Notes Section Notes 05/30/2024 Type 2 diabetes mellitus with diabetic polyneuropathy (ICD-10 - E11.42) 05/30/2024 History of below-knee amputation of right lower extremity (ICD-10 - Z89.511) 09/13/2024 Type 2 diabetes mellitus with diabetic polyneuropathy (ICD-10 - E11.42) 09/13/2024 History of below-knee amputation of right lower extremity (ICD-10 - Z89.511) 09/13/2024 History of amputation of lesser toe of left foot (ICD-10 - Z89.422) 05/30/2024 History of amputation of lesser toe of left foot (ICD-10 - Z89.422) 05/30/2024 History of amputation of great toe (ICD-10 - Z89.419) 09/13/2024 History of amputation of great toe (ICD-10 - Z89.419) 09/13/2024 Other complications of amputation stump (ICD-10 - T87.89) 09/13/2024 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 unspecified severity (ICD-10 - L97.809) Plan Of Treatment Pending Test Test Name Order Date Hemoglobin A1c 09/02/2015 X ray : Foot, right 3V 03/24/2012 X ray : Foot, right 3V 03/12/2022 X ray : Foot, right 3V 03/23/2022 X ray : Foot, right 3V 05/12/2022 93291-BZYYITJ NAIL, 6 OR MORE 03/24/2018 38036-WAWKAFP NAIL, 6 OR MORE 04/13/2019 14947-SBQMKZB NAIL, 6 OR MORE 08/30/2019 63898-XFKAFGG NAIL, 6 OR MORE 07/09/2011 31661-FFRGTKI NAIL, 6 OR MORE 10/08/2011 51409-UUJGOLQ NAIL, 6 OR MORE 01/07/2012 16907-CYZVAWW NAIL, 6 OR MORE 04/28/2012 71852-MVFVTVW NAIL, 6 OR MORE 08/11/2012 48430-WYVPBTI NAIL, 6 OR MORE 11/10/2012 06142-UYBFOHK NAIL, 6 OR MORE 05/11/2013 74330-EAMOZJB NAIL, 6 OR MORE 05/24/2014 88648-GWOPEHU NAIL, 6 OR MORE 08/23/2014 50123-RJFRPDO NAIL, 6 OR MORE 11/22/2014 67102-YJVKVNM NAIL, 6 OR MORE 02/07/2015 59934-ZRHCIZO NAIL, 6 OR MORE 12/02/2015 64529-QUDCJWD NAIL, 6 OR MORE 08/19/2016 82928-RTPVWQG NAIL, 6 OR MORE 11/19/2016 56185-TULWFOG NAIL, 6 OR MORE 02/11/2017 36035-AHBHBMM NAIL, 6 OR MORE 11/25/2017 39398-AMJKGFL NAIL, 6 OR MORE 07/13/2018 86982-KGMPWYZ NAIL, 6 OR MORE 10/12/2018 50600-ZTYCMBW NAIL, 6 OR MORE 01/11/2019 95358-NUAJBEP NAIL, 6 OR MORE 02/09/2013 60747-VZWILQQ NAIL, 6 OR MORE 05/09/2015 14341-FCZXAGP NAIL, 6 OR MORE 08/26/2017 06209-FNCNMEM NAIL, 6 OR MORE 05/27/2017 26896-IUFCPGS NAIL, 6 OR MORE 03/04/2016 78464-WSAVLVK NAIL, 6 OR MORE 02/22/2014 79834-VQEGVIV NAIL, 6 OR MORE 11/23/2013 55466-YBUAXAN NAIL, 6 OR MORE 09/02/2015 83751-ROQLBQL NAIL, 6 OR MORE 08/24/2013 98534-KNSMLPI NAIL, 1-5 11/30/2019 95243-NTMYLBD NAIL, 1-5 05/24/2020 23250-QPUWGTH NAIL, 1-5 08/27/2020 63959-JCPKSRD NAIL, 1-5 11/29/2020 06974-NJOCRBJ NAIL, 1-5 03/05/2021 55682-OHQWCCK NAIL, 1-5 07/08/2021 67945-FAERUFF NAIL, 1-5 10/10/2021 79865-QNKTHDV NAIL, 1-5 01/21/2022 31005-KDERNFK NAIL, 1-5 04/24/2022 89651-Czkwfzfm Plate 05/11/2013 13136- Debride <25 sq cm 11/22/2014 77867- Debride <25 sq cm 04/24/2022 01450- Debride <25 sq cm 11/23/2013 26206- Debride <25 sq cm 02/22/2014 58020-DRYKRLH SKIN/TISSUE 12/18/2015 69491 I&D ABSCESS- SIMPLE,SINGLE 016 47990-BFUZ SKIN LESIONS, OVER 4 12/02/19 16 62292-HUZN SKIN LESIONS, OVER 4 02/08/20 15 38187-YDVB SKIN LESIONS, OVER 4 11/19/19 17 37853-QKPW SKIN LESIONS, OVER 4 08/19/20 16 33452-NKAP SKIN LESIONS, OVER 4 01/12/20 19 39930-XHTC SKIN LESIONS, OVER 4 10/12/20 18 44693-GSST SKIN LESIONS, OVER 4 07/13/20 18 81797-DUMR SKIN LESIONS, OVER 4 02/12/20 17 62162-ZBLT SKIN LESIONS, OVER 4 11/25/19 18 16230-FKOO SKIN LESIONS, OVER 4 11/22/19 15 80243-SKZD SKIN LESIONS, OVER 4 05/24/20 14 37876-QNLP SKIN LESIONS, OVER 4 08/23/20 14 56932-ZSNJ SKIN LESIONS, OVER 4 08/26/20 17 49788-VNCM SKIN LESIONS, OVER 4 02/22/20 24 18923-BAUY SKIN LESIONS, OVER 4 05/30/20 24 13780-CHGM SKIN LESIONS, OVER 4 09/13/20 24 99059-TIJI SKIN LESIONS, OVER 4 03/24/20 18 78679-YPFV SKIN LESIONS, OVER 4 08/30/20 19 93214-XNJC SKIN LESIONS, OVER 4 04/13/20 19 59607-WOSR SKIN LESIONS, OVER 4 09/02/20 15 10028-VQSJ SKIN LESIONS, OVER 4 05/09/20 15 10524-CMFF SKIN LESIONS, OVER 4 03/04/20 16 32502-UMHK SKIN LESIONS, OVER 4 05/27/20 17 03577-PJZW SKIN LESIONS, OVER 4 02/23/20 14 39850-MLNJ SKIN LESIONS, 2 TO 4 11/23/19 14 45836-YDNS SKIN LESIONS, 2 TO 4 08/24/20 13 17684-AINH SKIN LESIONS, 2 TO 4 02/10/20 13 72419-AIEY SKIN LESIONS, 2 TO 4 08/27/20 20 50487-EIQK SKIN LESIONS, 2 TO 4 11/30/19 20 88556-XEEH SKIN LESIONS, 2 TO 4 05/24/20 20 41269-UUDP SKIN LESIONS, 2 TO 4 10/10/20 21 77183-ANRA SKIN LESIONS, 2 TO 4 07/08/20 21 13567-SUQO SKIN LESIONS, 2 TO 4 03/05/20 21 54430-NGLX SKIN LESIONS, 2 TO 4 11/29/19 21 97415-BQCU SKIN LESIONS, 2 TO 4 11/23/19 24 18164-FJTR SKIN LESIONS, 2 TO 4 04/24/20 22 09849-KTVZ SKIN LESIONS, 2 TO 4 01/22/20 22 72706-RQDK SKIN LESIONS, 2 TO 4 05/11/20 13 93996-ESJL SKIN LESIONS, 2 TO 4 11/10/19 13 06761-KART SKIN LESIONS, 2 TO 4 08/11/20 12 17512-SJAS SKIN LESION 04/28/2012 67572-WJBIHOKK OF HEMATOMA/FLUID 013 HEMOGLOBIN A1C (GLYCOHEMOGLOBIN) 024 Insurance Providers Payer Name Payer Address Payer Phone Subscriber Number Group Number Insured Name Patient Relationship to Insured Coverage Start Date Coverage End Date [employer] [address] [place] [address] [phone] [id number] Jim Augustin Self - patient is the insured 2 Medical (General) History Medical History History ICD Code mumps measles hypertension Gout type I diabetes chicken pox hypercholesterolemia asthma Surgical History Surgery Date(Month/Year) arm surgery 10/2016 cataract surgery 09/21/18 [facility] - Left 09/05/2019 Hospitalization History Reason Date(Month/Year) fall - rehab 5 weeks 2023 [facility] wound left ankle 05/2024 [facility] Rectal bleed 01/2022 [facility]- CHF and COPD 12/28-01/06 [facility] constipation 06/12 [facility] Wax build up 06/04 [facility] low BP 05/31 [facility] leg wound 09/2020 [facility] for 11 days then rehab 07/25/19 [facility] High blood pressure 01/05/19 [facility] by ambulance, kidney's were shutting down 10/24/18 [facility] 10/2016 [facility]- heart attack 10/2016 Wound care clinic [facility] Dehydration 3days 12/2015 pneumonia [facility] 6 days 12/2015 [facility], UTI, blood in urine 07/16/15 [facility]- infected toe 10/31/13-11/04/13 [facility]- CHF, fluid in lungs 05/2013 [facility] colonoscopy 2012
--- OUTSIDE RECORDS SUMMARY | 2025-03-01 15:31 | XMS_ITS | Encounter Summary ---
Author Organization [facility] Address [address] [place] [address] Care Team Providers Care Chicken Sexer Name Role Phone Maci Carvajal Primary Care Provider Encounter Details Date Type Department Care Team (Late st Contact Info) Description 01/13/2025 Lab Requisition [facility] - Main Lab [address] [facility] [place] [address] Marianna Ellison MD [address] [address] Weakness; Type 2 diabetes mellitus without complications [...] Description 05/23/2025 10:20 AM EDT Office Visit [facility] [address] [place] [address] Sajan Noriega MD [address] [place] [address] [address]IVE [address] [place] [address] documented as of this encounter Procedures Procedure Name Priority Date/Time Associated Diagnosis Comments COMPLETE BLOOD COUNT Routine 01/15/2025 5:51 AM EDT Weakness Type 2 diabetes mellitus without complications ([facility]/HCC) BASIC METABOLIC PANEL Routine 01/15/2025 5:51 AM EDT Weakness Type 2 diabetes mellitus without complications ([facility]/HCC) documented in this encounter Results * (ABNORMAL) Basic metabolic panel (01/15/2025 5:51 AM EDT) Pathologist [facility] Sodium 139 133 - 145 mmol/L LAB CHEMISTRY METHOD 01/15/2025 11:25 AM [facility] Potassium 4.1 3.5 - 5.5 mmol/L LAB CHEMISTRY METHOD 01/15/2025 11:25 AM [facility] Chloride 103 96 - 110 mmol/L LAB CHEMISTRY METHOD 01/15/2025 11:25 AM [facility] CO2 30 21 - 32 mmol/L LAB CHEMISTRY METHOD 01/15/2025 11:25 AM [facility] Anion Gap 6 3 - 11 LAB CHEMISTRY METHOD 01/15/2025 11:25 AM [facility] Glucose 155(H) 70 - 100 mg/dL LAB CHEMISTRY METHOD 01/15/2025 11:25 AM [facility] BUN 30(H) 5 - 25 mg/dL LAB CHEMISTRY METHOD 01/15/2025 11:25 AM [facility] Creatinine 1.61(H) 0.70 - 1.30 mg/dL LAB CHEMISTRY METHOD 01/15/2025 11:25 AM [facility] eGFR 43(L) >=60 mL/min/1. 73m2 LAB CHEMISTRY METHOD 01/15/2025 11:25 AM [facility] Comment:Calculation based on the??Chronic Kidney Disease Epidemiology Collaboration (CKD-EPI) equation refit??without adjustment for race. BUN/Creatinine Ratio 18.6 LAB CHEMISTRY METHOD 01/15/2025 11:25 AM EDT [facility] Calcium 8.9 8.5 - 10.5 mg/dL LAB CHEMISTRY METHOD 01/15/2025 11:25 AM EDT [facility] Blood Venous blood specimen / Unknown Venipuncture / Unknown 01/15/2025 5:51 AM EDT 01/15/2025 9:57 AM EDT us Marianna Ellison MD LAB BLOOD ORDERABLES Fin al Result [facility] [address] [place] [address], * (ABNORMAL) Complete blood count (01/15/2025 5:51 AM EDT) WBC 6.8 4.8 - 10.8 K/mcL LAB HEMETOLOGY METHOD 01/15/2025 10:38 AM [facility] RBC 4.80 4.50 - 5.50 M/mcL LAB HEMETOLOGY METHOD 01/15/2025 10:38 AM [facility] Hemoglobin 14.1 13.5 - 17.5 g/dL LAB HEMETOLOGY METHOD 01/15/2025 10:38 AM [facility] Hematocrit 45.1 42.0 - 54.0 % LAB HEMETOLOGY METHOD 01/15/2025 10:38 AM [facility] MCV 93.6 79.0 - 98.0 FL LAB HEMETOLOGY METHOD 01/15/2025 10:38 AM [facility] MCH 29.3 27.0 - 32.0 pcg LAB HEMETOLOGY METHOD 01/15/2025 10:38 AM [facility] MCHC 31.3(L) 32.0 - 37.0 g/dL LAB HEMETOLOGY METHOD 01/15[facility]25 10[facility] RDW 15.5(H) 11.0 - 15.0 % LAB HEMETOLOGY METHOD 01/15/2025 10:38 AM EDT [facility] Platelets 167 130 - 400 K/mcL LAB HEMETOLOGY METHOD 01/15/2025 10:38 AM EDT [facility] MPV 11.7(H) 7.0 - 11.0 FL LAB HEMETOLOGY METHOD 01/15/2025 10:38 AM EDT [facility] NRBC 0.0 <1.0 % LAB HEMETOLOGY METHOD 01/15/2025 10:38 AM EDT [facility] NRBC Absolute 0.00 <0.10 K/mcL LAB HEMETOLOGY METHOD 01/15/2025 10:38 AM EDT [facility] Blood Venous blood specimen / Unknown Venipuncture / Unknown 01/15/2025 5:51 AM EDT 01/15/2025 9:57 AM EDT us Marianna Ellison MD LAB BLOOD ORDERABLES Fin al Result [facility] [address] [place] [address], [place] [phone] documented in this encounter Visit Diagnoses Diagnosis Weakness Other malaise and fatigue Type 2 diabetes mellitus without complications (CMS/HCC V24, CMS/HCC V28) documented in this encounter Care Teams Chicken Sexer Relationship Specialty Start Date End Date Maci Carvajal PA [address] [place] [address] PCP - General 06/25/23 documented as of this encounter
--- OUTSIDE RECORDS SUMMARY | 2025-03-01 15:31 | XMS_ITS | Encounter Summary ---
Author Organization [facility] Address [address] [place] [address] Care Team Providers Care Paper Ruler Name Role Phone Maci Carvajal Primary Care Provider [phone] Encounter Details Date Type Department Care Team (Late st Contact Info) Description 01/05/2025 Lab Requisition [facility] - Main Lab [address] [facility] [place] [address] Marianna Ellison MD [address] [address] Weakness; Type 2 diabetes mellitus without complications [...] Description 05/23/2025 10:20 AM EDT Office Visit [facility] [address] [place] [address] Sajan Noriega MD [address] [place] [address] [address] [place] [address] documented as of this encounter Procedures Procedure Name Priority Date/Time Associated Diagnosis Comments COMPLETE BLOOD COUNT Routine 01/08/2025 8:29 AM EDT Weakness Type 2 diabetes mellitus without complications ([facility]/HCC) BASIC METABOLIC PANEL Routine 01/08/2025 8:29 AM EDT Weakness Type 2 diabetes mellitus without complications ([facility]/HCC) documented in this encounter Results * (ABNORMAL) Basic metabolic panel (01/08/2025 8:29 AM EDT) Pathologist [facility] Sodium 137 133 - 145 mmol/L LAB CHEMISTRY METHOD 01/08/2025 10:49 AM [facility] Potassium 4.1 3.5 - 5.5 mmol/L LAB CHEMISTRY METHOD 01/08/2025 10:49 AM [facility] Chloride 102 96 - 110 mmol/L LAB CHEMISTRY METHOD 01/08/2025 10:49 AM [facility] CO2 29 21 - 32 mmol/L LAB CHEMISTRY METHOD 01/08/2025 10:49 AM [facility] Anion Gap 6 3 - 11 LAB CHEMISTRY METHOD 01/08/2025 10:49 AM [facility] Glucose 138(H) 70 - 100 mg/dL LAB CHEMISTRY METHOD 01/08/2025 10:49 AM [facility] BUN 32(H) 5 - 25 mg/dL LAB CHEMISTRY METHOD 01/08/2025 10:49 AM [facility] Creatinine 1.60(H) 0.70 - 1.30 mg/dL LAB CHEMISTRY METHOD 01/08/2025 10:49 AM [facility] eGFR 44(L) >=60 mL/min/1. 73m2 LAB CHEMISTRY METHOD 01/08/2025 10:49 AM [facility] Comment:Calculation based on the??Chronic Kidney Disease Epidemiology Collaboration (CKD-EPI) equation refit??without adjustment for race. BUN/Creatinine Ratio 20.0 LAB CHEMISTRY METHOD 01/08/2025 10:49 AM EDT [facility] Calcium 9.1 8.5 - 10.5 mg/dL LAB CHEMISTRY METHOD 01/08/2025 10:49 AM [facility] Blood Venous blood specimen / Unknown Venipuncture / Unknown 01/08/2025 8:29 AM EDT 01/08/2025 9:38 AM EDT us Marianna Ellison MD LAB BLOOD ORDERABLES Fin al Result [facility] [address] [place] [address], * (ABNORMAL) Complete blood count (01/08/2025 8:29 AM EDT) WBC 7.6 4.8 - 10.8 K/mcL LAB HEMETOLOGY METHOD 01/08/2025 9:53 AM [facility] RBC 4.50 4.50 - 5.50 M/[facility] LAB HEMETOLOGY METHOD 01/08/2025 9:53 AM [facility] Hemoglobin 13.2(L) 13.5 - 17.5 g/dL LAB HEMETOLOGY METHOD 01/08/2025 9:53 AM [facility] Hematocrit 42.2 42.0 - 54.0 % LAB HEMETOLOGY METHOD 01/08/2025 9:53 AM [facility] MCV 94.0 79.0 - 98.0 FL LAB HEMETOLOGY METHOD 01/08/2025 9:53 AM [facility] MCH 29.4 27.0 - 32.0 pcg LAB HEMETOLOGY METHOD 01/08/2025 9:53 AM [facility] MCHC 31.3(L) 32.0 - 37.0 g/dL LAB HEMETOLOGY METHOD 01/08/2025 9:53 AM [facility] RDW 15.2(H) 11.0 - 15.0 % LAB HEMETOLOGY METHOD 01/08/2025 9:53 AM EDT [facility] Platelets 226 130 - 400 K/mcL LAB HEMETOLOGY METHOD 01/08/2025 9:53 AM EDT [facility] MPV 11.5(H) 7.0 - 11.0 FL LAB HEMETOLOGY METHOD 01/08/2025 9:53 AM EDT [facility] NRBC 0.0 <1.0 % LAB HEMETOLOGY METHOD 01/08/2025 9:53 AM EDT [facility] NRBC Absolute 0.00 <0.10 K/mcL LAB HEMETOLOGY METHOD 01/08/2025 9:53 AM EDT [facility] Blood Venous blood specimen / Unknown Venipuncture / Unknown 01/08/2025 8:29 AM EDT 01/08/2025 9:38 AM EDT us Marianna Ellison MD LAB BLOOD ORDERABLES Fin al Result [facility] [address] [place] [address], [place] [phone] documented in this encounter Visit Diagnoses Diagnosis Weakness Other malaise and fatigue Type 2 diabetes mellitus without complications (CMS/HCC V24, CMS/HCC V28) documented in this encounter Care Teams Paper Ruler Relationship Specialty Start Date End Date Maci Carvajal PA [address] [place] [address] PCP - General 06/25/23 documented as of this encounter
--- OUTSIDE RECORDS SUMMARY | 2025-03-01 15:31 | XMS_ITS | Encounter Summary ---
Author Organization [facility] Address [address] [place] [address] Care Team Providers Care Custom Bike Builder Name Role Phone Maci Carvajal Primary Care Provider [phone] Encounter Details Date Type Department Care Team (Late st Contact Info) Description 11/09/[address] [facility] - Main Lab 299 [facility] [place] [address] Marianna Ellison MD [address] [address] Weakness; Type 2 diabetes mellitus without complications [...] Description 05/23/2025 10:20 AM EDT Office Visit [facility] [address] [place] [id number] Sajan Noriega MD [address] [place] [address] DRIVE [address] [place] [address] documented as of this encounter Procedures Procedure Name Priority Date/Time Associated Diagnosis Comments THYROID STIMULATING HORMONE WITH REFLEX TO FREE T4 AND FREE T3 Routine 11/09/2024 7:22 AM EST Weakness Type 2 diabetes mellitus without complications (CMS/HCC) COMPLETE BLOOD COUNT Routine 11/09/2024 7:22 AM EST Weakness Type 2 diabetes mellitus without complications (CMS/HCC) HEMOGLOBIN A1C Routine 11/09/2024 7:22 AM EST Weakness Type 2 diabetes mellitus without complications (CMS/HCC) FOLATE Routine 11/09/2024 7:22 AM EST Weakness Type 2 diabetes mellitus without complications (CMS/HCC) VITAMIN B12 Routine 11/09/2024 7:22 AM EST Weakness Type 2 diabetes mellitus without complications (CMS/HCC) COMPREHENSIVE METABOLIC PANEL Routine 11/09/2024 7:22 AM EST Weakness Type 2 diabetes mellitus without complications (CMS/HCC) documented in this encounter Results * Thyroid stimulating hormone with reflex to free t4 and free t3 (11/09/2024 7:22 AM EST) TSH 1.29 0.40 - 4.00 mcIU/mL LAB CHEMISTRY METHOD 11/10/2024 9:30 AM EST [facility] Blood Venous blood specimen / Unknown Venipuncture / Unknown 11/09/2024 7:22 AM EST 11/09/2024 11:58 AM EST us Marianna Ellison MD LAB BLOOD ORDERABLES Fin al Result [facility] [address] [place] [address], * Folate (11/09/2024 7:22 AM EST) Folate 11.6 2.8 - 17.0 ng/ml LAB CHEMISTRY METHOD 11/09/2024 3:43 PM EST [facility] Blood Venous blood specimen / Unknown Venipuncture / Unknown 11/09/2024 7:22 AM EST 11/09/2024 11:58 AM EST Marianna Ellison MD LAB BLOOD ORDERABLES Fin al Result [facility] [address] [place] [address], [place] [phone] * Vitamin B12 (11/09/2024 7:22 AM EST) [facility] Vitamin B-12 785 250 - 900 pcg/mL LAB CHEMISTRY METHOD 11/09/2024 3:43 PM EST [facility] Blood Venous blood specimen / Unknown Venipuncture / Unknown 11/09/2024 7:22 AM EST 11/09/2024 11:58 AM EST Marianna Ellison MD LAB BLOOD ORDERABLES Fin al Result Performing Organization Address [facility]/ZIP Co de Phone Number [facility] [address] [place] [address], [place] [phone] * (ABNORMAL) Hemoglobin A1c (11/09/2024 7:22 AM EST) [facility] Hemoglobin A1C 8.0(H) <6.5 % LAB CHEMISTRY METHOD 11/09/2024 9:56 PM EST [facility] Mean Bld Glu Estim. 183 mg/dL LAB CHEMISTRY METHOD 11/09/2024 9:56 PM EST [facility] Blood Venous blood specimen / Unknown Venipuncture / Unknown 11/09/2024 7:22 AM EST 11/09/2024 11:58 AM EST Marianna Ellison MD LAB BLOOD ORDERABLES Fin al Result Performing Organization Address City/[facility]/ZIP Co de Phone Number [facility] [address] [place] [address], * (ABNORMAL) Comprehensive metabolic panel (11/09/2024 7:22 AM EST) Sodium 135 133 - 145 mmol/L LAB CHEMISTRY METHOD 11/09/2024 3:43 PM [facility] Potassium 3.8 3.5 - 5.5 mmol/L LAB CHEMISTRY METHOD 11/09/2024 3:43 PM [facility] Chloride 98 96 - 110 mmol/L LAB CHEMISTRY METHOD 11/09/2024 3:43 PM [facility] CO2 27 21 - 32 mmol/L LAB CHEMISTRY METHOD 11/09/2024 3:43 PM [facility] Anion Gap 10 3 - 11 LAB CHEMISTRY METHOD 11/09/2024 3:43 PM [facility] Glucose 127(H) 70 - 100 mg/dL LAB CHEMISTRY METHOD 11/09/2024 3:43 PM [facility] BUN 35(H) 5 - 25 mg/dL LAB CHEMISTRY METHOD 11/09/2024 3:43 PM [facility] Creatinine 1.48(H) 0.70 - 1.30 mg/dL LAB CHEMISTRY METHOD 11/09/2024 3:43 PM [facility] eGFR 48(L) >=60 mL/min/1. 73m2 LAB CHEMISTRY METHOD 11/09/2024 3:43 PM [facility] Comment:Calculation based on the??Chronic Kidney Disease Epidemiology Collaboration (CKD-EPI) equation refit??without adjustment for race. BUN/Creatinine Ratio 23.6 LAB CHEMISTRY METHOD 11/09/2024 3:43 PM [facility] Calcium 9.0 8.5 - 10.5 mg/dL LAB CHEMISTRY METHOD 11/09/2024 3:43 PM [facility] AST (SGOT) 18 10 - 42 unit/L LAB CHEMISTRY METHOD 11/09/2024 3:43 PM [facility] ALT (SGPT) 17 10 - 60 unit/L LAB CHEMISTRY METHOD 11/09/2024 3:43 PM [facility] Alkaline Phosphatase 125(H) 42 - 121 unit/L LAB CHEMISTRY METHOD 11/09/2024 3:43 PM [facility] Total Protein 6.5 6.0 - 8.0 g/dL LAB CHEMISTRY METHOD 11/09/2024 3:43 PM [facility] Albumin 2.9(L) 3.2 - 5.0 g/dL LAB CHEMISTRY METHOD 11/09/2024 3:43 PM [facility] Total Bilirubin 0.8 0.0 - 1.4 mg/dL LAB CHEMISTRY METHOD 11/09/2024 3:43 PM [facility] Blood Venous blood specimen / Unknown Venipuncture / Unknown 11/09/2024 7:22 AM EST 11/09/2024 11:58 AM EST us Marianna Ellison MD LAB BLOOD ORDERABLES Fin al Result [facility] [address] [place] [address], * (ABNORMAL) Complete blood count (11/09/2024 7:22 AM EST) WBC 10.9(H) 4.8 - 10.8 K/mcL LAB HEMETOLOGY METHOD 11/09/2024 1:05 PM [facility] RBC 4.90 4.50 - 5.50 M/mcL LAB HEMETOLOGY METHOD 11/09/2024 1:05 PM [facility] Hemoglobin 14.3 13.5 - 17.5 g/dL LAB HEMETOLOGY METHOD 11/09/2024 1:05 PM [facility] Hematocrit 44.9 42.0 - 54.0 % LAB HEMETOLOGY METHOD 11/09/2024 1:05 PM [facility] MCV 92.4 79.0 - 98.0 FL LAB HEMETOLOGY METHOD 11/09/2024 1:05 PM [facility] MCH 29.4 27.0 - 32.0 pcg LAB HEMETOLOGY METHOD 11/09/2024 1:05 PM [facility] MCHC 31.8(L) 32.0 - 37.0 g/dL LAB HEMETOLOGY METHOD 11/09/2024 1:05 PM [facility] RDW 13.5 11.0 - 15.0 % LAB HEMETOLOGY METHOD 11/09/2024 1:05 PM [facility] Platelets 272 130 - 400 K/mcL LAB HEMETOLOGY METHOD 11/09/2024 1:05 PM [facility] MPV 11.2(H) 7.0 - 11.0 FL LAB HEMETOLOGY METHOD 11/09/2024 1:05 PM [facility] NRBC 0.0 <1.0 % LAB HEMETOLOGY METHOD 11/09/2024 1:05 PM [facility] NRBC Absolute 0.00 <0.10 K/mcL LAB HEMETOLOGY METHOD 11/09/2024 1:05 PM [facility] Blood Venous blood specimen / Unknown Venipuncture / Unknown 11/09/2024 7:22 AM EST 11/09/2024 11:58 AM EST us Marianna Ellison MD LAB BLOOD ORDERABLES Fin al Result [facility] [address] [place] [address], documented in this encounter Visit Diagnoses Diagnosis Weakness Other malaise and fatigue Type 2 diabetes mellitus without complications (CMS/HCC V24, CMS/HCC V28) documented in this encounter Care Teams Custom Bike Builder Relationship Specialty Start Date End Date Maci Carvajal PA [address] [place] [address] PCP - General 06/25/23 documented as of this encounter
--- OUTSIDE RECORDS SUMMARY | 2025-03-01 15:31 | XMS_ITS | Encounter Summary ---
Author Organization [facility] Address [address] [place] [address] Care Team Providers Care Business Management Professor Name Role Phone Maci Carvajal Primary Care Provider [phone] Encounter Details Date Type Department Care Team (Late st Contact Info) Description 11/15/2024 Lab Requisition [facility] - Main Lab 299 [facility] [place] [address] Marianna Ellison MD [address] [address] Type 2 diabetes mellitus without complications (CMS/HCC [...] 05/23/2025 10:20 AM EDT Office Visit [facility] [address] [place] [address] Sajan Noriega MD [address] [place] [address] DR[address] [place] [address] documented as of this encounter Visit Diagnoses Diagnosis Type 2 diabetes mellitus without complications (CMS/HCC V24, CMS/[facility] V28) Weakness Other malaise and fatigue documented in this encounter Care Teams Business Management Professor Relationship Specialty Start Date End Date Maci Carvajal PA [address] [place] [id number] PCP - General 06/25/23 documented as of this encounter
--- OUTSIDE RECORDS SUMMARY | 2025-03-01 15:31 | XMS_ITS | Encounter Summary ---
Author Organization [facility] Address [address] [place] [address] Care Team Providers Care Private Duty Nurse Name Role Phone Maci Carvajal Primary Care Provider [phone] Encounter Details Date Type Department Care Team (Late st Contact Info) Description 01/10/2025 Lab Requisition [facility] - Main Lab 299 [facility] [place] [address] Marianna Ellison MD [address] [address] Weakness; Type 2 diabetes mellitus without complications [...] Description 05/23/2025 10:20 AM EDT Office Visit [facility] [address] [place] [address] Sajan Noriega MD [address] [place] [address] [address] [place] [address] documented as of this encounter Procedures Procedure Name Priority Date/Time Associated Diagnosis Comments COMPLETE BLOOD COUNT Routine 01/11/2025 5:27 AM EDT Weakness Type 2 diabetes mellitus without complications ([facility]/HCC) BASIC METABOLIC PANEL Routine 01/11/2025 5:27 AM EDT Weakness Type 2 diabetes mellitus without complications ([facility]/HCC) documented in this encounter Results * (ABNORMAL) Basic metabolic panel (01/11/2025 5:27 AM EDT) Pathologist [facility] Sodium 138 133 - 145 mmol/L LAB CHEMISTRY METHOD 01/11/2025 10:[address] [facility] Potassium 4.2 3.5 - 5.5 mmol/L LAB CHEMISTRY METHOD 01/11/2025 10:[address] [facility] Chloride 103 96 - 110 mmol/L LAB CHEMISTRY METHOD 01/11/2025 10:[address] [facility] CO2 29 21 - 32 mmol/L LAB CHEMISTRY METHOD 01/11/2025 10:[address] [facility] Anion Gap 6 3 - 11 LAB CHEMISTRY METHOD 01/11/2025 10:[address] [facility] Glucose 122(H) 70 - 100 mg/dL LAB CHEMISTRY METHOD 01/11/2025 10:[address] [facility] BUN 26(H) 5 - 25 mg/dL LAB CHEMISTRY METHOD 01/11/2025 10:[address] [facility] Creatinine 1.38(H) 0.70 - 1.30 mg/dL LAB CHEMISTRY METHOD 01/11/2025 10:[address] [facility] eGFR 52(L) >=60 mL/min/1. 73m2 LAB CHEMISTRY METHOD 01/11/2025 10:[address] [facility] Comment:Calculation based on the??Chronic Kidney Disease Epidemiology Collaboration (CKD-EPI) equation refit??without adjustment for race. BUN/Creatinine Ratio 18.8 LAB CHEMISTRY METHOD 01/11/2025 10:55 AM EDT [facility] Calcium 8.9 8.5 - 10.5 mg/dL LAB CHEMISTRY METHOD 01/11/2025 10:55 AM T [facility] Blood Venous blood specimen / Unknown 01/11/2025 5:27 AM EDT 01/11/2025 9:48 AM EDT us Marianna Ellison MD LAB BLOOD ORDERABLES Fin al Result [facility] [address] [place] [address], * (ABNORMAL) Complete blood count (01/11/2025 5:27 AM EDT) WBC 6.8 4.8 - 10.8 K/mcL LAB HEMETOLOGY METHOD 01/11/2025 10:[address] [facility] RBC 4.70 4.50 - 5.50 M/mcL LAB HEMETOLOGY METHOD 01/11/2025 10:[address] [facility] Hemoglobin 13.9 13.5 - 17.5 g/dL LAB HEMETOLOGY METHOD 01/11/2025 10:[address] [facility] Hematocrit 43.9 42.0 - 54.0 % LAB HEMETOLOGY METHOD 01/11/2025 10:[address] [facility] MCV 93.0 79.0 - 98.0 FL LAB HEMETOLOGY METHOD 01/11/2025 10:[address] [facility] MCH 29.4 27.0 - 32.0 pcg LAB HEMETOLOGY METHOD 01/11/2025 10:[address] [facility] MCHC 31.7(L) 32.0 - 37.0 g/dL LAB HEMETOLOGY METHOD 01/11/2025 10:[address] [facility] RDW 15.4(H) 11.0 - 15.0 % LAB HEMETOLOGY METHOD 01/11/2025 10:35 AM EDT [facility] Platelets 199 130 - 400 K/mcL LAB HEMETOLOGY METHOD 01/11/2025 10:35 AM EDT [facility] MPV 11.7(H) 7.0 - 11.0 FL LAB HEMETOLOGY METHOD 01/11/2025 10:35 AM EDT [facility] NRBC 0.0 <1.0 % LAB HEMETOLOGY METHOD 01/11/2025 10:35 AM EDT [facility] NRBC Absolute 0.00 <0.10 K/mcL LAB HEMETOLOGY METHOD 01/11/2025 10:35 AM EDT [facility] Blood Venous blood specimen / Unknown Venipuncture / Unknown 01/11/2025 5:27 AM EDT 01/11/2025 9:48 AM EDT us Marianna Ellison MD LAB BLOOD ORDERABLES Fin al Result [facility] [address] [place] [address], documented in this encounter Visit Diagnoses Diagnosis Weakness Other malaise and fatigue Type 2 diabetes mellitus without complications (CMS/HCC V24, CMS/HCC V28) documented in this encounter Care Teams Private Duty Nurse Relationship Specialty Start Date End Date Maci Carvajal PA [address] [place] [address] PCP - General 06/25/23 documented as of this encounter
--- OUTSIDE RECORDS SUMMARY | 2025-03-01 15:31 | XMS_ITS | Encounter Summary ---
Author Organization [facility] Address [address] [place] [address] Care Team Providers Care Council On Aging Director Name Role Phone Maci Carvajal Primary Care Provider [phone] Encounter Details Date Type Department Care Team (Late st Contact Info) Description 11/11/2024 Lab Requisition [facility] - Main Lab 299 [facility] [place] [address] Marianna Ellison MD [address] [address] Type 2 diabetes mellitus without complications (CMS/HCC [...] Description 05/23/2025 10:20 AM EDT Office Visit [facility] [address] [place] [address] Sajan Noriega MD [address] [place] [address] DR[address] [place] [address] documented as of this encounter Procedures Procedure Name Priority Date/Time Associated Diagnosis Comments COMPLETE BLOOD COUNT Routine 11/13/2024 6:40 AM EST Type 2 diabetes mellitus without complications ([facility]/HCC) Weakness BASIC METABOLIC PANEL Routine 11/13/2024 6:40 AM EST Type 2 diabetes mellitus without complications ([facility]/HCC) Weakness documented in this encounter Results * (ABNORMAL) Basic metabolic panel (11/13/2024 6:40 AM EST) Sodium 137 133 - 145 mmol/L LAB CHEMISTRY METHOD 11/13/2024 11:32 AM [facility] Potassium 4.2 3.5 - 5.5 mmol/L LAB CHEMISTRY METHOD 11/13/2024 11:32 AM [facility] Chloride 100 96 - 110 mmol/L LAB CHEMISTRY METHOD 11/13/2024 11:32 AM [facility] CO2 28 21 - 32 mmol/L LAB CHEMISTRY METHOD 11/13/2024 11:32 AM [facility] Anion Gap 9 3 - 11 LAB CHEMISTRY METHOD 11/13/2024 11:32 AM [facility] Glucose 127(H) 70 - 100 mg/dL LAB CHEMISTRY METHOD 11/13/2024 11:32 AM [facility] BUN 40(H) 5 - 25 mg/dL LAB CHEMISTRY METHOD 11/13/2024 11:32 AM [facility] Creatinine 1.77(H) 0.70 - 1.30 mg/dL LAB CHEMISTRY METHOD 11/13/2024 11:32 AM [facility] eGFR 39(L) >=60 mL/min/1. 73m2 LAB CHEMISTRY METHOD 11/13/2024 11:32 AM [facility] Comment:Calculation based on the??Chronic Kidney Disease Epidemiology Collaboration (CKD-EPI) equation refit??without adjustment for race. BUN/Creatinine Ratio 22.6 LAB CHEMISTRY METHOD 11/13/2024 11:32 AM [facility] Calcium 8.9 8.5 - 10.5 mg/dL LAB CHEMISTRY METHOD 11/13/2024 11:32 AM EST [facility] Blood Venous blood specimen / Unknown Venipuncture / Unknown 11/13/2024 6:40 AM EST 11/13/2024 9:55 AM EST us Marianna Ellison MD LAB BLOOD ORDERABLES Fin al Result [facility] [address] [place] [address], [place] [phone] * (ABNORMAL) Complete blood count (11/13/2024 6:40 AM EST) WBC 9.9 4.8 - 10.8 K/mcL LAB HEMETOLOGY METHOD 11/13/2024 10:33 AM [facility] RBC 4.80 4.50 - 5.50 M/[facility] LAB HEMETOLOGY METHOD 11/13/2024 10:33 AM [facility] Hemoglobin 14.4 13.5 - 17.5 g/dL LAB HEMETOLOGY METHOD 11/13/2024 10:33 AM [facility] Hematocrit 45.4 42.0 - 54.0 % LAB HEMETOLOGY METHOD 11/13/2024 10:33 AM [facility] MCV 93.8 79.0 - 98.0 FL LAB HEMETOLOGY METHOD 11/13/2024 10:33 AM [facility] MCH 29.8 27.0 - 32.0 pcg LAB HEMETOLOGY METHOD 11/13/2024 10:33 AM [facility] MCHC 31.7(L) 32.0 - 37.0 g/dL LAB HEMETOLOGY METHOD 11/13/2024 10:33 AM [facility] RDW 13.5 11.0 - 15.0 % LAB HEMETOLOGY METHOD 11/13/2024 10:33 AM EST [facility] Platelets 273 130 - 400 K/mcL LAB HEMETOLOGY METHOD 11/13/2024 10:33 AM EST [facility] MPV 11.4(H) 7.0 - 11.0 FL LAB HEMETOLOGY METHOD 11/13/2024 10:33 AM EST [facility] NRBC 0.0 <1.0 % LAB HEMETOLOGY METHOD 11/13/2024 10:33 AM [facility] NRBC Absolute 0.00 <0.10 K/mcL LAB HEMETOLOGY METHOD 11/13/2024 10:33 AM [facility] Blood Venous blood specimen / Unknown Venipuncture / Unknown 11/13/2024 6:40 AM EST 11/13/2024 9:54 AM EST us Marianna Ellison MD LAB BLOOD ORDERABLES Fin al Result [facility] [address] [place] [address], documented in this encounter Visit Diagnoses Diagnosis Type 2 diabetes mellitus without complications (CMS/HCC V24, CMS/HCC V28) Weakness Other malaise and fatigue documented in this encounter Care Teams Council On Aging Director Relationship Specialty Start Date End Date Maci Carvajal PA [address] [place] [address] PCP - General 06/25/23 documented as of this encounter
--- OUTSIDE RECORDS SUMMARY | 2025-03-01 15:31 | XMS_ITS | Clinical Summary ---
Author Organization [facility] Address [address] [facility] [address] [place] [address] Phone Care Team Providers Care Charter Coach Driver Name Role Phone Maci Carvajal Primary Care Provider [phone] Allergies No known active allergies Medications acetaminophen (TYLENOL) 500 MG tablet Active albuterol (2.5 MG/3ML) 0.083% nebulizer solution Active albuterol HFA (PROVENTIL HFA;VENTOLIN HFA) 108 (90 Base) MCG/ACT inhaler 2 puffs by Other route every 4 (four) hours Active allopurinol (ZYLOPRIM) 100 MG tablet Take 1 tablet by mouth 2 (two) times a day Active aspirin (ST JOS) 81 MG EC tablet Take 1 tablet by mouth 1 (one) time each day Active atorvastatin (LIPITOR) 80 MG tablet Take 1 tablet by mouth 1 (one) time each day Active budesonide-formo terol (SYMBICORT) 160-4.5 MCG/ACT inhaler 2 puffs by Other route Active digoxin (LANOXIN) 125 MCG tablet Take 1 tablet by mouth every other day Active Dulaglutide (Trulicity) 1.5 MG/0.5ML solution pen-injector Active insulin glargine (Lantus SoloStar) 100 UNIT/ML injection Active insulin lispro (HumaLOG) 100 UNIT/ML injection Active isosorbide mononitrate (IMDUR) 60 MG 24 hr tablet Take 1 tablet by mouth 1 (one) time each day Active magnesium oxide (MAG-OX) 400 MG tablet Take 1 tablet by mouth 1 (one) time each day Active polyethylene glycol (GLYCOLAX) 17 GM/SCOOP powder Acti ve rivaroxaban (XARELTO) 15 MG tablet Take 1 tablet by mouth 1 (one) time each day Active ascorbic acid (VITAMIN C) 500 MG tablet Take 1 tablet by mouth 1 (one) time each day Active Cholecalciferol (Vitamin D) 25 MCG (1000 UT) tablet Take 1 tablet by mouth 1 (one) time each day Active PARoxetine (PAXIL) 30 MG tablet Take 30 mg by mouth 1 (one) time each day in the morning Active lisinopril 2.5 MG tablet Take 0.5 tablets (1.25 mg total) by mouth 1 (one) time each day 45 tablet 3 2 Active Additional Information Patient taking differently: 5 mgOral Daily, Reported on 01/11/2023 carvedilol (COREG) 25 MG tablet TAKE 1 TABLET(25 MG) BY MOUTH TWICE DAILY 60 tablet 5 2 Active Additional Information Patient taking differently: 12.5 mg Oral 2 times daily with meals, Reported on 07/22/2023 torsemide (DEMADEX) 20 MG tablet Take 2 tablets (40 mg total) by mouth 1 (one) time each day 180 tablet 3 3 Active methylPREDNISolo ne (MEDROL DOSPAK) 4 MG tablet FOLLOW PACKAGE DIRECTIONS 3 Active Active Problems Problem Noted Date Diagnosed Date Benign prostatic hyperplasia 01/11/2023 Coronary arteriosclerosis 01/11/2023 Dilatation of aorta 01/11/2023 Follow-up status 01/11/2023 Gastroesophageal reflux disease 01/11/2023 Obstructive sleep apnea syndrome 01/11/2023 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 Peripheral vascular disorder due to diabetes davian litus 07/03/2022 Pulmonary hypertension 07/03/2022 Overview (07/03/2022): Echo 01/01/2022 showed moderate pulmonary HTN est. 60-65 mmHg. 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 11/04/2021 Hypertension 07/31/2021 Acute nontraumatic kidney injury 03/03/2021 Stage 3a chronic kidney disease 03/03/2021 Essential hypertension 03/03/2021 Hypertensive renal disease 03/03/2021 Renal disorder due to type 2 diabetes mellitus 0 03/03/2021 Resolved Problems Problem Noted Date Diagnosed Date Resolved Date Atrial fibrillation 11/04/2021 02/06/20 Disturbance in speech 11/04/20212021 History of amputation of foot 11/04/2021 02/05/2022 Pyoderma 11/04/2021 02/05/2022 Chronic obstructive pulmonary disease 03/03/2021 04/04/2021 Congestive heart failure 03/03/202101/2021 Gout 03/03/2021 04/04/2021 Hyperlipidemia 03/03/2021 04/04/2021 Tremor 03/03/2021 04/04/2021 Tubular adenoma 03/03/2021 04/04/2021 Type 2 diabetes mellitus 03/03/202101/2021 Cutaneous abscess of left foot 07/18/2019 04/04/2021 Abscess 07/16/2019 04/04/2021 Cellulitis 07/16/2019 04/04/2021 Immunizations Immunization Administration Dates Next Due Influenza, Unspecified 07/25/2022 Pfizer SARS-COV-2 08/28/2021,12/26/2020,12/05/19 21 Pneumococcal Conjugate 13-Valent 05/01/2015 Pneumococcal Polysaccharide 08/01/2012, 9,11/01/2008,12/10/2003 Shingrix 06/13/2012 Td, Unspecified 09/08/2011 Tdap 05/10/2016,05/29/2014 Family History Medical History Relation Comments Cancer Father lung cancer Hypertension Father Cancer Mother Relation Status Comments Father Mother Social History Tobacco Use Types Packs/Day Years Used Date Smoking Tobacco: Former Cigarettes Q uit: 08/23/1978 Smokeless Tobacco: Never Tobacco Cessation:Counseling Given: Not Answered Sex and Gender Information Value Date Recorded Sex Assigned at Not on file Legal Sex Male 5:03 PM EST Gender Identity Not on file Sexual Orientation Not on file Last Filed Vital Signs Vital Sign Reading Time Taken Comments Blood Pressure 96/60 07/22/2023 2:45 PM EDT Pulse 70 07/22/2023 2:45 PM EDT Temperature - - Respiratory Rate - - Oxygen Saturation 96% 07/22/2023 2:45 PM EDT Inhaled Oxygen Concentration - - Weight 90.7 kg (200 lb) 07/22/2023 2:45 PM EDT Height 182.9 cm (6') 10/29/2020 12:00 PM EST Body Mass Index 27.12 10/29/2020 12:00 PM EST Plan of Treatment Health Maintenance Due Date Last Done Comments Diabetes: Hemoglobin A1C 11/29/2020 020, 05/22/2020, 06/01/2019, Additional history exists Diabetes: Ophthalmology Exam 11/29/2020 Diabetes: Pedal Pulse Checked 11/29/2020 Diabetes: Sensory Foot Exam 11/29/2020 Diabetes: Visual Foot Exam 11/29/2020 Influenza Vaccine (Season Ended) 2025 07/25/2022 Pneumococcal Vaccine: 50+ Years Completed 05/01/2015, 08/01/2012, 04/01/2009, Additional history exists Pneumococcal Vaccine: Peds (0 to 5 Years) and At-Risk Patients (6 to 49 Years) Discontinued 05/01/2015, 08/01/2012, 04/01/2009, Additional history exists Hepatitis B Vaccine Aged Out No longe r eligible based on patient's age to complete this topic Procedures Procedure Name Priority Date/Time Associated Diagnosis Comments BLOOD PANEL (HC) Routine 08/23/2020 12:0 0 AM EDT from Last 3 Months or Most Recently Relevant to Health Maintenance Results * (ABNORMAL) Blood Panel (08/23/2020 12:00 AM EDT) Sodium 136(L) 137 - 145 mmol/L [facility] BUN 23(H) 9 - 20 mg/dl [facility] Potassium 4.5 3.5 - 5.1 mmol/L [facility] Carbon Dioxide (CO2) 27 22 - 30 mmol/L [facility] Hgb 14.4 13.0 - 16.5 g/dl [facility] Creatinine 1.5(H) 0.70 - 1.30 mg/dl [facility] Calcium 9.6 8.4 - 10.2 mg/dl [facility] eGFR Non- 46(L) >60 ml/min [facility] Hematocrit 45.9 38 - 50 % [facility] eGFR 53(L) >60 ml/min [facility] Platelets 189 140 - 440 k/uL [facility] Hemoglobin A1C 8.9(H) <5 % [facility] 08/23/2020 us Rtama Conversion LAB [id number] LICITED RESULTS Final Result [facility] from Last 3 Months or Most Recently Relevant to Health Maintenance Insurance [facility] Care Teams Charter Coach Driver Relationship Specialty Start Date End Date Maci Carvajal PA [address] [place], [place] PCP - General Physician Wrapper Layer And Examiner Soft Work 03/04/21
--- OUTSIDE RECORDS SUMMARY | 2025-03-01 15:31 | XMS_ITS | Encounter Summary ---
Author Organization [facility] Address [address] [place] [address] Care Team Providers Care Manager Cafe Name Role Phone Maci Carvajal Primary Care Provider [phone] Encounter Details Date Type Department Care Team (Late st Contact Info) Description 12/29/2024 Lab Requisition [facility] - Main Lab [address] [facility] [place] [address] Marianna Ellison MD [address] [address] Weakness; Type 2 diabetes mellitus without complications [...] 05/23/2025 10:20 AM EDT Office Visit [facility] [address] [place] [address] Sajan Noriega MD [address] [place] [address] [address] [place] [address] documented as of this encounter Procedures Procedure Name Priority Date/Time Associated Diagnosis Comments COMPLETE BLOOD COUNT Routine 01/01/2025 7:49 AM EST Weakness Type 2 diabetes mellitus without complications (CMS/HCC) BASIC METABOLIC PANEL Routine 01/01/2025 7:49 AM EST Weakness Type 2 diabetes mellitus without complications ([facility]/HCC) documented in this encounter Results * (ABNORMAL) Basic metabolic panel (01/01/2025 7:49 AM EST) Sodium 139 133 - 145 mmol/L LAB CHEMISTRY METHOD 01/01/2025 10:40 AM [facility] Potassium 4.4 3.5 - 5.5 mmol/L LAB CHEMISTRY METHOD 01/01/2025 10:40 AM [facility] Chloride 107 96 - 110 mmol/L LAB CHEMISTRY METHOD 01/01/2025 10:40 AM [facility] CO2 24 21 - 32 mmol/L LAB CHEMISTRY METHOD 01/01/2025 10:40 AM [facility] Anion Gap 8 3 - 11 LAB CHEMISTRY METHOD 01/01/2025 10:40 AM [facility] Glucose 128(H) 70 - 100 mg/dL LAB CHEMISTRY METHOD 01/01/2025 10:40 AM [facility] BUN 24 5 - 25 mg/dL LAB CHEMISTRY METHOD 01/01/2025 10:40 AM [facility] Creatinine 1.22 0.70 - 1.30 mg/dL LAB CHEMISTRY METHOD 01/01/2025 10:40 AM [facility] eGFR 60 >=60 mL/min/1. 73m2 LAB CHEMISTRY METHOD 01/01/2025 10:40 AM [facility] Comment:Calculation based on the??Chronic Kidney Disease Epidemiology Collaboration (CKD-EPI) equation refit??without adjustment for race. BUN/Creatinine Ratio 19.7 LAB CHEMISTRY METHOD 01/01/2025 10:40 AM [facility] Calcium 8.7 8.5 - 10.5 mg/dL LAB CHEMISTRY METHOD 01/01/2025 10:40 AM [facility] Blood Venous blood specimen / Unknown Venipuncture / Unknown 01/01/2025 7:49 AM EST 01/01/2025 9:58 AM EST us Marianna Ellison MD LAB BLOOD ORDERABLES Fin al Result [facility] [address] [place] [address], [place] [phone] * (ABNORMAL) Complete blood count (01/01/2025 7:49 AM EST) WBC 7.2 4.8 - 10.8 K/mcL LAB HEMETOLOGY METHOD 01/01/2025 10:30 AM [facility] RBC 4.60 4.50 - 5.50 M/mcL LAB HEMETOLOGY METHOD 01/01/2025 10:30 AM [facility] Hemoglobin 13.5 13.5 - 17.5 g/dL LAB HEMETOLOGY METHOD 01/01/2025 10:30 AM [facility] Hematocrit 42.8 42.0 - 54.0 % LAB HEMETOLOGY METHOD 01/01/2025 10:30 AM [facility] MCV 93.0 79.0 - 98.0 FL LAB HEMETOLOGY METHOD 01/01/2025 10:30 AM [facility] MCH 29.3 27.0 - 32.0 pcg LAB HEMETOLOGY METHOD 01/01/2025 10:30 AM [facility] MCHC 31.5(L) 32.0 - 37.0 g/dL LAB HEMETOLOGY METHOD 01/01/2025 10:30 AM [facility] RDW 15.1(H) 11.0 - 15.0 % LAB HEMETOLOGY METHOD 01/01/2025 10:30 AM EST [facility] Platelets 230 130 - 400 K/mcL LAB HEMETOLOGY METHOD 01/01/2025 10:30 AM EST [facility] MPV 11.5(H) 7.0 - 11.0 FL LAB HEMETOLOGY METHOD 01/01/2025 10:30 AM EST [facility] NRBC 0.0 <1.0 % LAB HEMETOLOGY METHOD 01/01/2025 10:30 AM [facility] NRBC Absolute 0.00 <0.10 K/mcL LAB HEMETOLOGY METHOD 01/01/2025 10:30 AM [facility] Blood Venous blood specimen / Unknown Venipuncture / Unknown 01/01/2025 7:49 AM EST 01/01/2025 9:58 AM EST us Marianna Ellison MD LAB BLOOD ORDERABLES Fin al Result [facility] [address] [place] [address], documented in this encounter Visit Diagnoses Diagnosis Weakness Other malaise and fatigue Type 2 diabetes mellitus without complications (CMS/HCC V24, CMS/HCC V28) documented in this encounter Care Teams Manager Cafe Relationship Specialty Start Date End Date Maci Carvajal PA [address] [place] [address] PCP - General 06/25/23 documented as of this encounter
--- OUTSIDE RECORDS SUMMARY | 2025-03-01 15:31 | XMS_ITS | Encounter Summary ---
Author Organization [facility] Address [address] [place] [address] Care Team Providers Care Charge Master Coordinator Name Role Phone Maci Carvajal Primary Care Provider [phone] Encounter Details Date Type Department Care Team (Late st Contact Info) Description 01/17/2025 Lab Requisition [facility] - Main Lab [address] [place] [facility] [place] [address] Marianna Ellison MD [address] [address] Weakness; Type 2 diabetes mellitus without complications [...] Description 05/23/2025 10:20 AM EDT Office Visit [facility] [address] [place] [address] Sajan Noriega MD [address] [place] [address] [address]IVE [address] [place] [address] documented as of this encounter Visit Diagnoses Diagnosis Weakness Other malaise and fatigue Type 2 diabetes mellitus without complications (CMS/[facility] V24, CMS/[facility] V28) documented in this encounter Care Teams Charge Master Coordinator Relationship Specialty Start Date End Date Maci Carvajal PA [address] [place] [address] PCP - General 06/25/23 documented as of this encounter
--- OUTSIDE RECORDS SUMMARY | 2025-03-01 15:31 | XMS_ITS | Encounter Summary ---
Author Organization [facility] Address [address] [place] [address] Care Team Providers Care Person Investigator Name Role Phone Maci Carvajal Primary Care Provider [phone] Encounter Details Date Type Department Care Team (Late st Contact Info) Description 01/03/2025 Lab Requisition [facility] - Main Lab 299 [facility] [place] [address] Marianna Ellison MD [address] [address] Weakness; Type 2 diabetes mellitus without complications [...] Description 05/23/2025 10:20 AM EDT Office Visit [facility] [address] [place] [phone] Sajan Noriega MD [address] [place] [address] [address] [place] [address] documented as of this encounter Procedures Procedure Name Priority Date/Time Associated Diagnosis Comments COMPLETE BLOOD COUNT Routine 01/04/2025 6:05 AM EST Weakness Type 2 diabetes mellitus without complications (CMS/HCC) BASIC METABOLIC PANEL Routine 01/04/2025 6:05 AM EST Weakness Type 2 diabetes mellitus without complications ([facility]/HCC) documented in this encounter Results * (ABNORMAL) Basic metabolic panel (01/04/2025 6:05 AM EST) Sodium 138 133 - 145 mmol/L LAB CHEMISTRY METHOD 01/04/2025 11:08 AM [facility] Potassium 3.7 3.5 - 5.5 mmol/L LAB CHEMISTRY METHOD 01/04/2025 11:08 AM [facility] Chloride 102 96 - 110 mmol/L LAB CHEMISTRY METHOD 01/04/2025 11:08 AM [facility] CO2 27 21 - 32 mmol/L LAB CHEMISTRY METHOD 01/04/2025 11:08 AM [facility] Anion Gap 9 3 - 11 LAB CHEMISTRY METHOD 01/04/2025 11:08 AM [facility] Glucose 149(H) 70 - 100 mg/dL LAB CHEMISTRY METHOD 01/04/2025 11:08 AM [facility] BUN 30(H) 5 - 25 mg/dL LAB CHEMISTRY METHOD 01/04/2025 11:08 AM [facility] Creatinine 1.51(H) 0.70 - 1.30 mg/dL LAB CHEMISTRY METHOD 01/04/2025 11:08 AM [facility] eGFR 47(L) >=60 mL/min/1. 73m2 LAB CHEMISTRY METHOD 01/04/2025 11:08 AM [facility] Comment:Calculation based on the??Chronic Kidney Disease Epidemiology Collaboration (CKD-EPI) equation refit??without adjustment for race. BUN/Creatinine Ratio 19.9 LAB CHEMISTRY METHOD 01/04/2025 11:08 AM [facility] Calcium 8.6 8.5 - 10.5 mg/dL LAB CHEMISTRY METHOD 01/04/2025 11:08 AM [facility] Blood Venous blood specimen / Unknown Venipuncture / Unknown 01/04/2025 6:05 AM EST 01/04/2025 10:02 AM EST us Marianna Ellison MD LAB BLOOD ORDERABLES Fin al Result [facility] [address] [place] [address], [place] [phone] * (ABNORMAL) Complete blood count (01/04/2025 6:05 AM EST) WBC 8.7 4.8 - 10.8 K/mcL LAB HEMETOLOGY METHOD 01/04/2025 10:32 AM [facility] RBC 4.30(L) 4.50 - 5.50 M/mcL LAB HEMETOLOGY METHOD 01/04/2025 10:32 AM [facility] Hemoglobin 12.7(L) 13.5 - 17.5 g/dL LAB HEMETOLOGY METHOD 01/04/2025 10:32 AM [facility] Hematocrit 39.4(L) 42.0 - 54.0 % LAB HEMETOLOGY METHOD 01/04/2025 10:32 AM [facility] MCV 92.5 79.0 - 98.0 FL LAB HEMETOLOGY METHOD 01/04/2025 10:32 AM [facility] MCH 29.8 27.0 - 32.0 pcg LAB HEMETOLOGY METHOD 01/04/2025 10:32 AM [facility] MCHC 32.2 32.0 - 37.0 g/dL LAB HEMETOLOGY METHOD 01/04/2025 10:32 AM [facility] RDW 15.1(H) 11.0 - 15.0 % LAB HEMETOLOGY METHOD 01/04/2025 10:32 AM EST [facility] Platelets 240 130 - 400 K/mcL LAB HEMETOLOGY METHOD 01/04/2025 10:32 AM EST [facility] MPV 11.5(H) 7.0 - 11.0 FL LAB HEMETOLOGY METHOD 01/04/2025 10:32 AM EST [facility] NRBC 0.0 <1.0 % LAB HEMETOLOGY METHOD 01/04/2025 10:32 AM [facility] NRBC Absolute 0.00 <0.10 K/mcL LAB HEMETOLOGY METHOD 01/04/2025 10:32 AM [facility] Blood Venous blood specimen / Unknown Venipuncture / Unknown 01/04/2025 6:05 AM EST 01/04/2025 10:01 AM EST us Marianna Ellison MD LAB BLOOD ORDERABLES Fin al Result [facility] [address] [place] [address], documented in this encounter Visit Diagnoses Diagnosis Weakness Other malaise and fatigue Type 2 diabetes mellitus without complications (CMS/HCC V24, CMS/HCC V28) documented in this encounter Care Teams Person Investigator Relationship Specialty Start Date End Date Maci Carvajal PA [address] [place] [address] PCP - General 06/25/23 documented as of this encounter
--- OUTSIDE RECORDS SUMMARY | 2025-03-01 15:31 | XMS_ITS | Encounter Summary ---
Author Organization [facility] Address [address] [place] [address] Care Team Providers Care Document Photographer Name Role Phone Maci Carvajal Primary Care Provider [phone] Encounter Details Date Type Department Care Team (Late st Contact Info) Description 11/19/2024 Lab Requisition [facility] - Main Lab 299 [facility] [place] [address] Marianna Ellison MD [address] [address] Type 2 diabetes mellitus without complications (CMS/HCC [...] Description 05/23/2025 10:20 AM EDT Office Visit [facility] [address] [place] [address] Sajan Noriega MD [address] [place] [address] [address] [place] [address] documented as of this encounter Visit Diagnoses Diagnosis Type 2 diabetes mellitus without complications (CMS/HCC V24, CMS/[facility] V28) Weakness Other malaise and fatigue documented in this encounter Care Teams Document Photographer Relationship Specialty Start Date End Date Maci Carvajal PA [address] [place] [phone] PCP - General 06/25/23 documented as of this encounter
--- OUTSIDE RECORDS SUMMARY | 2025-03-01 15:32 | XMS_ITS | Encounter Summary ---
Author Organization [facility] Address [address] [place] [address] Care Team Providers Care Cement Block Maker Name Role Phone Maci Carvajal Primary Care Provider [phone] Encounter Details Date Type Department Care Team (Late st Contact Info) Description 12/03/2024 Lab Requisition [facility] - Main Lab [address] [facility] [place] [address] Marianna Ellison MD [address] [address] Type 2 diabetes mellitus without complications (CMS/HCC [...] Description 05/23/2025 10:20 AM EDT Office Visit [facility] [address] [place] [phone] Sajan Noriega MD [address] [place] [address] [address] [place] [address] documented as of this encounter Procedures Procedure Name Priority Date/Time Associated Diagnosis Comments COMPLETE BLOOD COUNT Routine 12/04/2024 7:18 AM EST Type 2 diabetes mellitus without complications ([facility]/HCC) Weakness BASIC METABOLIC PANEL Routine 12/04/2024 7:18 AM EST Type 2 diabetes mellitus without complications ([facility]/HCC) Weakness documented in this encounter Results * (ABNORMAL) Basic metabolic panel (12/04/2024 7:18 AM EST) Sodium 140 133 - 145 mmol/L LAB CHEMISTRY METHOD 12/04/2024 1:13 PM [facility] Potassium 4.2 3.5 - 5.5 mmol/L LAB CHEMISTRY METHOD 12/04/2024 1:13 PM [facility] Chloride 104 96 - 110 mmol/L LAB CHEMISTRY METHOD 12/04/2024 1:13 PM [facility] CO2 28 21 - 32 mmol/L LAB CHEMISTRY METHOD 12/04/2024 1:13 PM [facility] Anion Gap 8 3 - 11 LAB CHEMISTRY METHOD 12/04/2024 1:13 PM [facility] Glucose 120(H) 70 - 100 mg/dL LAB CHEMISTRY METHOD 12/04/2024 1:13 PM [facility] BUN 30(H) 5 - 25 mg/dL LAB CHEMISTRY METHOD 12/04/2024 1:13 PM [facility] Creatinine 1.43(H) 0.70 - 1.30 mg/dL LAB CHEMISTRY METHOD 12/04/2024 1:13 PM [facility] eGFR 50(L) >=60 mL/min/1. 73m2 LAB CHEMISTRY METHOD 12/04/2024 1:13 PM [facility] Comment:Calculation based on the??Chronic Kidney Disease Epidemiology Collaboration (CKD-EPI) equation refit??without adjustment for race. BUN/Creatinine Ratio 21.0 LAB CHEMISTRY METHOD 12/04/2024 1:13 PM [facility] Calcium 8.8 8.5 - 10.5 mg/dL LAB CHEMISTRY METHOD 12/04/2024 1:13 PM [facility] Blood Venous blood specimen / Unknown Venipuncture / Unknown 12/04/2024 7:18 AM EST 12/04/2024 11:06 AM EST us Marianna Ellison MD LAB BLOOD ORDERABLES Fin al Result [facility] [address] [place] [address], [place] [phone] * (ABNORMAL) Complete blood count (12/04/2024 7:18 AM EST) WBC 7.2 4.8 - 10.8 K/mcL LAB HEMETOLOGY METHOD 12/04/2024 11:41 AM [facility] RBC 4.40(L) 4.50 - 5.50 M/[facility] LAB HEMETOLOGY METHOD 12/04/2024 11:41 AM [facility] Hemoglobin 12.6(L) 13.5 - 17.5 g/dL LAB HEMETOLOGY METHOD 12/04/2024 11:41 AM [facility] Hematocrit 40.5(L) 42.0 - 54.0 % LAB HEMETOLOGY METHOD 12/04/2024 11:41 AM [facility] MCV 93.1 79.0 - 98.0 FL LAB HEMETOLOGY METHOD 12/04/2024 11:41 AM [facility] MCH 29.0 27.0 - 32.0 pcg LAB HEMETOLOGY METHOD 12/04/2024 11:41 AM [facility] MCHC 31.1(L) 32.0 - 37.0 g/dL LAB HEMETOLOGY METHOD 12/04/2024 11:41 AM [facility] RDW 14.6 11.0 - 15.0 % LAB HEMETOLOGY METHOD 12/04/2024 11:41 AM EST [facility] Platelets 220 130 - 400 K/mcL LAB HEMETOLOGY METHOD 12/04/2024 11:41 AM [facility] MPV 11.5(H) 7.0 - 11.0 FL LAB HEMETOLOGY METHOD 12/04/2024 11:41 AM EST [facility] NRBC 0.0 <1.0 % LAB HEMETOLOGY METHOD 12/04/2024 11:41 AM [facility] NRBC Absolute 0.00 <0.10 K/mcL LAB HEMETOLOGY METHOD 12/04/2024 11:41 AM [facility] Blood Venous blood specimen / Unknown Venipuncture / Unknown 12/04/2024 7:18 AM EST 12/04/2024 11:06 AM EST us Marianna Ellison MD LAB BLOOD ORDERABLES Fin al Result [facility] [address] [place] [address], documented in this encounter Visit Diagnoses Diagnosis Type 2 diabetes mellitus without complications (CMS/HCC V24, CMS/HCC V28) Weakness Other malaise and fatigue documented in this encounter Care Teams Cement Block Maker Relationship Specialty Start Date End Date Maci Carvajal PA [address] [place] [address] PCP - General 06/25/23 documented as of this encounter
--- OUTSIDE RECORDS SUMMARY | 2025-03-01 15:32 | XMS_ITS | Encounter Summary ---
Author Organization [facility] Address [address] [place] [address] Care Team Providers Care Service Order Taker Name Role Phone Maci Carvajal Primary Care Provider Encounter Details Date Type Department Care Team (Late st Contact Info) Description 11/29/2024 Lab Requisition [facility] - Main Lab [address] [facility] [place] [address] Marianna Ellison MD [address] [address] Type 2 diabetes mellitus without complications (CMS/HCC [...] Visit [facility] [address] [place] [address] Sajan Noriega MD [address] [place] [address] [address] [place] [address] documented as of this encounter Procedures Procedure Name Priority Date/Time Associated Diagnosis Comments COMPLETE BLOOD COUNT Routine 11/30/2024 6:28 AM EST Type 2 diabetes mellitus without complications ([facility]/HCC) Weakness BASIC METABOLIC PANEL Routine 11/30/2024 6:28 AM EST Type 2 diabetes mellitus without complications ([facility]/HCC) Weakness documented in this encounter Results * (ABNORMAL) Basic metabolic panel (11/30/2024 6:28 AM EST) Sodium 141 133 - 145 mmol/L LAB CHEMISTRY METHOD 11/30/2024 10:31 AM [facility] Potassium 4.1 3.5 - 5.5 mmol/L LAB CHEMISTRY METHOD 11/30/2024 10:31 AM [facility] Chloride 105 96 - 110 mmol/L LAB CHEMISTRY METHOD 11/30/2024 10:31 AM [facility] CO2 30 21 - 32 mmol/L LAB CHEMISTRY METHOD 11/30/2024 10:31 AM [facility] Anion Gap 6 3 - 11 LAB CHEMISTRY METHOD 11/30/2024 10:31 AM [facility] Glucose 126(H) 70 - 100 mg/dL LAB CHEMISTRY METHOD 11/30/2024 10:31 AM [facility] BUN 34(H) 5 - 25 mg/dL LAB CHEMISTRY METHOD 11/30/2024 10:31 AM [facility] Creatinine 1.36(H) 0.70 - 1.30 mg/dL LAB CHEMISTRY METHOD 11/30/2024 10:31 AM [facility] eGFR 53(L) >=60 mL/min/1. 73m2 LAB CHEMISTRY METHOD 11/30/2024 10:31 AM [facility] Comment:Calculation based on the??Chronic Kidney Disease Epidemiology Collaboration (CKD-EPI) equation refit??without adjustment for race. BUN/Creatinine Ratio 25.0 LAB CHEMISTRY METHOD 11/30/2024 10:31 AM [facility] Calcium 9.0 8.5 - 10.5 mg/dL LAB CHEMISTRY METHOD 11/30/2024 10:[address] [facility] Blood Venous blood specimen / Unknown Venipuncture / Unknown 11/30/2024 6:28 AM EST 11/30/2024 9:39 AM EST us Marianna Ellison MD LAB BLOOD ORDERABLES Fin al Result [facility] [address] [place] [address], [place] [phone] * (ABNORMAL) Complete blood count (11/30/2024 6:28 AM EST) WBC 8.7 4.8 - 10.8 K/mcL LAB HEMETOLOGY METHOD 11/30/2024 10:20 AM [facility] RBC 4.30(L) 4.50 - 5.50 M/mcL LAB HEMETOLOGY METHOD 11/30/2024 10:20 AM [facility] Hemoglobin 12.7(L) 13.5 - 17.5 g/dL LAB HEMETOLOGY METHOD 11/30/2024 10:20 AM [facility] Hematocrit 40.1(L) 42.0 - 54.0 % LAB HEMETOLOGY METHOD 11/30/2024 10:20 AM [facility] MCV 93.0 79.0 - 98.0 FL LAB HEMETOLOGY METHOD 11/30/2024 10:20 AM [facility] MCH 29.5 27.0 - 32.0 pcg LAB HEMETOLOGY METHOD 11/30/2024 10:20 AM [facility] MCHC 31.7(L) 32.0 - 37.0 g/dL LAB HEMETOLOGY METHOD 11/30/2024 10:20 AM [facility] RDW 14.3 11.0 - 15.0 % LAB HEMETOLOGY METHOD 11/30/2024 10:[address] [facility] Platelets 257 130 - 400 K/mcL LAB HEMETOLOGY METHOD 11/30/2024 10:[address] [facility] MPV 11.4(H) 7.0 - 11.0 FL LAB HEMETOLOGY METHOD 11/30/2024 10:[address] [facility] NRBC 0.0 <1.0 % LAB HEMETOLOGY METHOD 11/30/2024 10:[address] [facility] NRBC Absolute 0.00 <0.10 K/mcL LAB HEMETOLOGY METHOD 11/30/2024 10:20 AM [facility] Blood Venous blood specimen / Unknown Venipuncture / Unknown 11/30/2024 6:28 AM EST 11/30/2024 9:39 AM EST us Marianna Ellison MD LAB BLOOD ORDERABLES Fin al Result [facility] [address] [place] [address], documented in this encounter Visit Diagnoses Diagnosis Type 2 diabetes mellitus without complications (CMS/HCC V24, CMS/HCC V28) Weakness Other malaise and fatigue documented in this encounter Care Teams Service Order Taker Relationship Specialty Start Date End Date Maci Carvajal PA [address] [place] [address] PCP - General 06/25/23 documented as of this encounter
--- OUTSIDE RECORDS SUMMARY | 2025-03-01 15:32 | XMS_ITS | Clinical Summary ---
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 Active insulin glargine-yfgn (Semglee,insuli n glargine-yfgn,) 100 unit/mL injection 300 Units at bedtime. Active torsemide (DEMADEX) 20 mg tablet 1 tablet in the am, 1 tablet every other night Active atorvastatin (LIPITOR) 40 mg tablet Take 1 tablet (40 mg total) by mouth 1 (one) time each day. Active magnesium oxide (MAG-OX) 400 mg magnesium tablet Take 1 Tablet by mouth daily. Active cholecalciferol (VITAMIN D-3) 25 mcg (1,000 unit) tablet Take 1 tablet (1,000 Units total) by mouth 1 (one) time each day. Active SENNOSIDES-DOCU SATE SODIUM ORAL 1 tablet at bedtime. Active isosorbide mononitrate (IMDUR) 60 mg 24 hr tablet Take 60 mg by mouth daily. Active acetaminophen (TYLENOL) 325 mg tablet Take 975 mg by mouth every 6 hours as needed. Active albuterol 2.5 mg /3 mL (0.083 %) nebulizer solution Take 3 mL by nebulization every 6 hours as needed. Active albuterol HFA (PROAIR HFA ; PROVENTIL HFA ; VENTOLIN HFA) 90 mcg/actuation inhaler Inhale 2 puffs by mouth every 4 (four) hours if needed. Active allopurinoL (ZYLOPRIM) 100 mg tablet Take 1 tablet (100 mg total) by mouth 2 (two) times a day. Active ascorbic acid, vitamin C, 500 mg capsule Take 1 tablet by mouth. 3 times weekly Active aspirin 81 mg EC tablet Take 81 mg by mouth daily. Active budesonide-form oteroL (SYMBICORT) 80-4.5 mcg/actuation inhaler Inhale 2 Puffs into the lungs 2 times daily as needed for Wheezing or Shortness of Breath. Active digoxin (LANOXIN) 125 mcg (0.125 mg) tablet Take 125 mcg by mouth every other day. Active dulaglutide (Trulicity) 4.5 mg/0.5 mL pen injector injection Inject 0.5 mL into the skin once a week. Active POLYETHYLENE GLYCOL 3350 ORAL Take 17 g by mouth daily as needed. Active PARoxetine (PAXIL) 20 mg tablet Take 1 tablet (20 mg total) by mouth 1 (one) time each day in the morning. Active insulin aspart (NOVOLOG FLEXPEN U-100 INSULIN SUBQ) 10 units in the am, 10 units in the afternoon, 15 units at bedtime Active isosorbide mononitrate (IMDUR) 30 mg 24 hr tabletIndicatio ns:Hypertension , unspecified type,Coronary artery disease involving [place] heart without angina pectoris, unspecified vessel or lesion type Take 1 tablet (30 mg total) by mouth 1 (one) time each day. Do not crush or chew. Do not take with 60 mg IMDUR tablets. 30 each 2 10/04/20 24 Active rivaroxaban (Xarelto) 15 mg tablet Take 1 tablet (15 mg total) by mouth 1 (one) time each day with dinner. Take with food. 90 tablet 2 01/23/20 25 Active carvediloL (COREG) 6.25 mg tablet Take 1 tablet (6.25 mg total) by mouth 2 (two) times a day with meals. 180 tablet 2 02/27/20 25 Active carvediloL (COREG) 6.25 mg tablet Take 1 Tablet by mouth 2 times daily (with meals). 02/02/20 24 025 Discontin ued(Reord er) Active Problems Problem Noted Date Diagnosed Date Diastolic heart failure (CMS/HCC V24, CMS/[facility] V2 8) 01/21/2022 Overview (08/15/2024): Last Assessment & Plan: Patient is history of HFpEF-EF 65%. At this time he denies any clinical symptoms of heart failure and appears euvolemic on physical examination. He has had recurrent hospitalizations with exacerbations of heart failure in the setting of dietary sodium indiscretions and medication nonadherence. We had a long discussion today regarding importance of taking his medical therapies as prescribed and following a low- sodium diet. I have given him handouts to review as well as a pamphlet with suggestions for nutritional consultation. He will continue to monitor his weight at home. He tells me that the scale that was being used by the visiting nurse seem to be an accurate but his weight has been stable on his home scale. He is taking torsemide 20 mg every morning and torsemide every other evening at the direction of his cigarette maker. He will be seeing his cigarette maker next week. He continues on lisinopril, carvedilol as prescribed. Patient advised to seek emergency medical attention by calling 911 if they were to develop severe dyspnea, chest pain that did not resolve with rest or nitroglycerin, or if they were to faint. I've asked the patient to call if they develop worsening symptoms of heart failure such as increased shortness of breath, new or worsening cough, increased swelling in the legs or ankles, or weight gain of more than 2 pounds in one day or 4 pounds in one week. Assessment & Plan (10/04/2024 3:47 PM EST): Patient is history of HFpEF-EF. At this time he denies any clinical symptoms of heart failure and appears euvolemic on physical examination. States that his weights have been stable. He is taking torsemide 20 mg every morning and torsemide every other evening at the direction of his cigarette maker. I've asked the patient to call if they develop worsening symptoms of heart failure such as increased shortness of breath, new or worsening cough, increased swelling in the legs or ankles, or weight gain of more than 2 pounds in one day or 4 pounds in one week. Sinus bradycardia 01/21/2022 Overview (08/15/2024): D/C'd from [facility] 01/05/22 Obesity 01/21/2022 Overview (08/15/2024): Class 1/ Class 2 COPD exacerbation ([facility] V24, [facility] V28) Overview (08/15/2024): D/C'd from [facility] 01/05/22 Coronary artery disease 06/30/2021 Overview (08/15/2024): Last Assessment & Plan: Patient has history of coronary artery disease status post MD in 2016 where he was successfully treated with a drug-eluting stent to the proximal LAD. At this time he denies any exertional anginal symptoms. He has significant cardiovascular risk factors. He continues on cardioprotective medical therapy with aspirin, carvedilol, isosorbide and atorvastatin. I have reviewed with the patient the importance of a heart healthy lifestyle which includes eating a low-fat low-salt diet, getting regular exercise, maintaining a healthy weight, not smoking, and following up with routine medical care. Assessment & Plan (10/04/2024 3:47 PM EST): Patient has history of coronary artery disease status post MD in 2016 where he was successfully treated with a drug-eluting stent to the proximal LAD. At this time he denies any exertional anginal symptoms. He has significant cardiovascular risk factors. He continues on cardioprotective medical therapy with aspirin, carvedilol, isosorbide and atorvastatin. I have reviewed with the patient the importance of a heart healthy lifestyle which includes eating a low-fat low-salt diet, getting regular exercise, maintaining a healthy weight, not smoking, and following up with routine medical care. Patient advised to seek emergency medical attention by calling 911 if they were to develop severe dyspnea, chest pain that did not resolve with rest or nitroglycerin, or if they were to faint. Orders: isosorbide mononitrate (IMDUR) 30 mg 24 hr tablet; Take 1 tablet (30 mg total) by mouth 1 (one) time each day. Do not crush or chew. Do not take with 60 mg IMDUR tablets. Atrial fibrillation ([facility] V24, CMS/[facility] V28) 0 06/26/2021 Overview (08/15/2024): Last Assessment & Plan: Patient has history of chronic atrial fibrillation which is adequately rate controlled on present dose of carvedilol and digoxin. He has been on Xarelto for anticoagulation. Patient's creatinine clearance is 51 mL/min. He will remain on 20 mg of Xarelto daily. Will continue to monitor this closely. Patient's last digoxin level was 0.4. We will update a digoxin level. Assessment & Plan (10/04/2024 3:47 PM EST): Patient has history of chronic atrial fibrillation which is adequately rate controlled on present dose of carvedilol and digoxin. He has been on Xarelto for anticoagulation. His most recent hospitalization Xarelto dose was decreased to 15 mg daily due to his kidney function. Patient has had no recent digoxin level found. Will update a digoxin level. Hypertension 06/26/2021 Overview (08/15/2024): Last Assessment & Plan: Patient's blood pressure today 110/60. This is quite reasonable. I will make no changes to his medical therapies today. Assessment & Plan (10/04/2024 3:47 PM EST): Patient's blood pressure has been running low per patient, visiting nurse has been coming once a week to check blood pressure and weights. Would suggest to primary care team that he would benefit from more frequent visits. Today his blood pressure is 100/55. He states he has been feeling fatigued. He denies any other symptoms such as dizziness or lightheadedness. Will discontinue lisinopril 2.5 mg and have patient monitor his blood pressures at home. If they continue to run low under 100/60 will at this point decrease Imdur to 30 mg daily. As the ID home delivery takes several weeks will send for 30 mg now in case we need to reduce this as well. Otherwise at this time he can continue on his current dose. Orders: isosorbide mononitrate (IMDUR) 30 mg 24 hr tablet; Take 1 tablet (30 mg total) by mouth 1 (one) time each day. Do not crush or chew. Do not take with 60 mg IMDUR tablets. Type 2 diabetes mellitus wit h obesity ([facility] V24, [facility] V28) 06/26/2021 Hyperlipidemia 06/26/2021 Overview (08/15/2024): Last Assessment & Plan: Goal LDL cholesterol is less than 70. Continue statin prescribed. Assessment & Plan (10/04/2024 3:47 PM EST): Continue on statin as prescribed. No recent lipid panel to review, will update. Encounters Date Type Department Care Team Description 02/26/2025 Telephone [facility] [address] [place] [address] Sarai Aden NP Med Refill 01/19/2025 Telephone [facility] [address] [place] [address] Sajan Noriega MD Call from [place] [facility] 01/17/2025 Lab Requisition [facility] - Main Lab [address] [facility] [place] [address] Marianna Ellison MD Weakness; Type 2 diabetes mellitus without complications ([facility] V24, [facility] V28) 01/13/2025 Lab Requisition [facility] Lab [address] [facility] [place] [address] Marianna Ellison MD Weakness; Type 2 diabetes mellitus without complications ([facility] V24, [facility] V28) 01/10/2025 Lab Requisition [facility] - Main Lab [address] [facility] [place] [address] Marianna Ellison MD Weakness; Type 2 diabetes mellitus without complications ([facility] V24, [facility] V28) 01/05/2025 Lab Requisition [facility] Lab [address] [facility] [place] [address] Marianna Nichols MD Weakness; Type 2 diabetes mellitus without complications ([facility] V24, [facility] V28) 01/03/2025 Lab Requisition [facility] [address] [place] [phone] Marianna Ellison MD Weakness; Type 2 diabetes mellitus without complications ([facility] V24, [facility] V28) 12/29/2024 Lab Requisition [facility] [address] [place] [phone] Marianna Ellison MD Weakness; Type 2 diabetes mellitus without complications ([facility] V24, [facility] V28) 12/27/2024 Lab Requisition [facility] [address] [place] [phone] Marianna Ellison MD Unspecified atrial fibrillation ([facility] V24, [facility] V28); Type 2 diabetes mellitus without complications ([facility] V24, [facility] V28) 12/22/2024 Lab Requisition [facility] [address] [place] [phone] Marianna Ellison MD Weakness; Type 2 diabetes mellitus without complications ([facility] V24, [facility] V28) 12/20/2024 Lab Requisition [facility] [address] [place] [phone] Marianna Ellison MD Weakness; Type 2 diabetes mellitus without complications ([facility] V24, [facility] V28) 12/15/2024 Lab Requisition [facility] [address] [place] [phone] Marianna Ellison MD Weakness; Type 2 diabetes mellitus without complications ([facility] V24, [facility] V28) 12/13/2024 Lab Requisition [facility] [address] [place] [phone] Marianna Ellison MD Weakness; Type 2 diabetes mellitus without complications ([facility] V24, [facility] V28) 12/08/2024 Lab Requisition [facility] [address] [place] [address] Marianna Ellison MD Type 2 diabetes mellitus without complications ([facility] V24, [facility] V28); Weakness 12/06/2024 Lab Requisition [facility] [address] [place] [address] Marianna Ellison MD Type 2 diabetes mellitus without complications ([facility] V24, [facility] V28); Weakness 12/03/2024 Lab Requisition [facility] [address] [place] [address] Marianna Ellison MD Type 2 diabetes mellitus without complications ([facility] V24, [facility] V28); Weakness from Last 3 Months Immunizations Name Administration Dates Next Due Pneumococcal polysaccharide 23 valent (Pneumovax 23) 2yo and older 12/10/2003 Surgical History Surgery Date Site/Laterality Comments OTHER SURGICAL HISTORY 09/05/2019 PROCEDURE: HISTORY OTHER; COMMENT: Left transmetatarsal amputation OTHER SURGICAL HISTORY 09/30/2016 PROCEDURE: HISTORY OTHER; COMMENT: Incision and drainage, upper ar, or elbow area; deep abcess or hematoma COLONOSCOPY 09/02/2016 PROCEDURE: HISTORICAL COLONOSCOPY OTHER SURGICAL HISTORY 04/13/2013 PROCEDURE: VA COLONOSCOPY FLEXIBLE WITH DECOMPRESSION ANGIOPLASTY PROCEDURE: HISTORICAL ANGIOPLASTY W/STENT Medical History Medical History Date Comments Acute kidney injury ([facility] V24) DX:Acute kidney injury ([facility]) COPD (chronic obstructive pu lmonary disease) ([facility] V24, [facility] V28) DX:COPD (chronic o bstructive pulmonary disease) ([facility]) Non-compliance DX:Non-complianc e Obesity DX:Obesity; COMM ENT: Class 1/ Class 2 / class 3 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 ([facility] V24, [facility] V28) DX:Persistent microalbuminur ia associated with type II diabetes mellitus ([facility]) Pyoderma DX:Pyoderma Spells of speech arrest DX:Spell s of speech arrest Status post transmetatarsal amputation of left foot ([facility] V24, [facility] V28) DX:Status post transmetatarsal amputation of left foot (HCC) Tremor DX:Tremor Tubular adenoma of colon DX:Tubu lar adenoma of colon Chronic ischemic heart disease D X:Chronic ischemic heart disease Hyperlipidemia DX:Hyperlipidemi a Essential hypertension DX:Essent ial hypertension Diabetes mellitus type 2 in obese DX:Diabetes mellitus type 2 in obese COPD exacerbation ([facility] V 24, [facility] V28) DX:COPD exacerbation (HCC); COMMENT: D/C'd from [facility] 01/05/22 Class 2 obesity DX:Class 2 obesi ty GI bleed DX:GI bleed Family History Medical History Relation Name Comments COPD Father Lung cancer Father Lung cancer Mother Relation Name Status Comments Father Mother Social History Tobacco [...] on file Sexual Orientation Not on file Obstetrics History Last Filed Vital Signs Vital Sign Reading Time Taken Comments Blood Pressure 100/55 10/04/2024 1:17 PM EST Pulse 83 10/04/2024 1:17 PM EST Temperature - - Respiratory Rate - - Oxygen Saturation 94% 10/04/2024 1:17 PM EST Inhaled Oxygen Concentration - - Weight 91.9 kg (202 lb 9.6 oz) 07/05/2024 2:42 P M EDT Height 188 cm (6' 2 ) 07/05/2024 2:42 PM EDT Body Mass Index 26.01 07/05/2024 2:42 PM EDT Plan of Treatment Upcoming Encounters Date Type Department Care Team (Late st Contact Info) Description 05/23/2025 10:20 AM EDT Office Visit [facility] [address] [facility] [address] [place] [address] Sajan Noriega MD [address] [place] [address] [address] [place] [address] Health Maintenance Due Date Last Done Comments Diabetes: Annual Foot Exam 1955 Diabetes: Annual Retina Eye Exam 1955 Cholesterol Screening (Lipid Panel) 10/10/2022 12/11/2003 Depression Screening 10/10/2022 Falls Risk Assessment 10/10/2022 Hepatitis C Screening 10/10/2022 Medicare Annual Wellness Visit 10/10/2022 Social Influencers of Health Screening 10/10/2022 Diabetes: Annual Urine Albumin-Creatinine Ratio (uACR) 10/17/2022 12/11/2003 COVID-19 Vaccine ( season) 2024 08/28/2021, 12/26/2020, 12/05/2020 Diabetes: Blood Sugar Control Test (HGBA1C) 05/09/2025 11/09/2024, 12/11/2003 Influenza Vaccine (Season Ended) 2025 07/16/2023, 07/16/2023, 07/25/2022, Additional history exists Diabetes: Annual GFR (Glomerular Filtration Rate) 01/15/2026 01/15/2025, 01/11/2025, 01/08/2025, Additional history exists Hypertension/CHF/CAD Annual BMP Blood Test 01/15/2026 01/15/2025, 01/11/2025, 01/08/2025, Additional history exists DTaP,Tdap,and Td Vaccines (6 - Td or Tdap) 05/10/2026 05/10/2016, 05/29/2014, 05/29/2014, Additional history exists Pneumococcal Vaccine: 50+ Years Completed 05/01/2015, 08/01/2012, 08/01/2012, Additional history exists Zoster Vaccines Completed 10/29/2021, 08/02, 06/13/2012 RSV Immunization Adult Patients Completed 07/27/2023 HIB Vaccines Aged Out No longer eligi ble based on patient's age to complete this topic HPV Vaccines Aged Out No longer eligi ble based on patient's age to complete this topic Hepatitis A Vaccines Aged Out No long er eligible based on patient's age to complete this topic Hepatitis B Vaccines Aged Out No long er eligible based on patient's age to complete this topic IPV Vaccines Aged Out No longer eligi ble based on patient's age to complete this topic MMR Vaccines Aged Out No longer eligi ble based on patient's age to complete this topic Meningococcal ACWY Vaccine Aged Out N o longer eligible based on patient's age to complete this topic Meningococcal B Vaccine Aged Out No l onger eligible based on patient's age to complete this topic RSV Immunization Patients Under 20 months Aged Out No longer eligible based on patient's age to complete this topic Varicella Vaccines Aged Out No longer eligible based on patient's age to complete this topic Procedures Procedure Name Priority Date/Time Associated Diagnosis Comments BASIC METABOLIC PANEL Routine 01/15/2025 5:51 AM EDT Weakness Type 2 diabetes mellitus without complications (CMS/HCC) COMPLETE BLOOD COUNT Routine 01/15/2025 5:51 AM EDT Weakness Type 2 diabetes mellitus without complications (CMS/HCC) BASIC METABOLIC PANEL Routine 01/11/2025 5:27 AM EDT Weakness Type 2 diabetes mellitus without complications (CMS/HCC) COMPLETE BLOOD COUNT Routine 01/11/2025 5:27 AM EDT Weakness Type 2 diabetes mellitus without complications (CMS/HCC) BASIC METABOLIC PANEL Routine 01/08/2025 8:29 AM EDT Weakness Type 2 diabetes mellitus without complications (CMS/HCC) COMPLETE BLOOD COUNT Routine 01/08/2025 8:29 AM EDT Weakness Type 2 diabetes mellitus without complications (CMS/HCC) BASIC METABOLIC PANEL Routine 01/04/2025 6:05 AM EST Weakness Type 2 diabetes mellitus without complications (CMS/HCC) COMPLETE BLOOD COUNT Routine 01/04/2025 6:05 AM EST Weakness Type 2 diabetes mellitus without complications (CMS/HCC) BASIC METABOLIC PANEL Routine 01/01/2025 7:49 AM EST Weakness Type 2 diabetes mellitus without complications (CMS/HCC) COMPLETE BLOOD COUNT Routine 01/01/2025 7:49 AM EST Weakness Type 2 diabetes mellitus without complications (CMS/HCC) FOLATE Routine 12/27/2024 6:07 AM EST Unspecified atrial fibrillation (CMS/HCC) Type 2 diabetes mellitus without complications (CMS/HCC) VITAMIN B12 Routine 12/27/2024 6:07 AM EST Unspecified atrial fibrillation (CMS/HCC) Type 2 diabetes mellitus without complications (CMS/HCC) THYROID STIMULATING HORMONE WITH REFLEX TO FREE [...] without complications (CMS/HCC) COMPLETE BLOOD COUNT Routine 12/21/2024 8:52 AM EST Weakness Type 2 diabetes mellitus without complications (CMS/HCC) BASIC METABOLIC PANEL Routine 12/18/2024 6:18 AM EST Weakness Type 2 diabetes mellitus without complications (CMS/HCC) COMPLETE BLOOD COUNT Routine 12/18/2024 6:18 AM EST Weakness Type 2 diabetes mellitus without complications (CMS/HCC) BASIC METABOLIC PANEL Routine 12/14/2024 5:50 AM EST Weakness Type 2 diabetes mellitus without complications (CMS/HCC) COMPLETE BLOOD COUNT Routine 12/14/2024 5:50 AM EST Weakness Type 2 diabetes mellitus without complications (CMS/HCC) BASIC METABOLIC PANEL Routine 12/11/2024 7:02 AM EST Type 2 diabetes mellitus without complications (CMS/HCC) Weakness COMPLETE BLOOD COUNT Routine 12/11/2024 7:02 AM EST Type 2 diabetes mellitus without complications (CMS/HCC) Weakness BASIC METABOLIC PANEL Routine 12/07/2024 6:39 AM EST Type 2 diabetes mellitus without complications (CMS/HCC) Weakness COMPLETE BLOOD COUNT Routine 12/07/2024 6:39 AM EST Type 2 diabetes mellitus without complications (CMS/HCC) Weakness BASIC METABOLIC PANEL Routine 12/04/2024 7:18 AM EST Type 2 diabetes mellitus without complications (CMS/HCC) Weakness COMPLETE BLOOD COUNT Routine 12/04/2024 7:18 AM EST Type 2 diabetes mellitus without complications (CMS/HCC) Weakness HEMOGLOBIN A1C Routine 11/09/2024 7:22 AM EST Weakness Type 2 diabetes mellitus without complications (CMS/HCC) HM URINE ALBUMIN CREATININE RATIO Routine 12/11/2003 LIPID PANEL Routine 12/11/2003 from Last 3 Months or Most Recently Relevant to Health Maintenance Results * (ABNORMAL) Complete blood count (01/15/2025 5:51 AM EDT) Only the most recent of12 resultswithin the time period is included. WBC 6.8 4.8 - 10.8 K/mcL LAB HEMETOLOGY METHOD 01/15/2025 10:38 AM EDT [facility] RBC 4.80 4.50 - 5.50 M/mcL LAB HEMETOLOGY METHOD 01/15/2025 10:38 AM EDT [facility] Hemoglobin 14.1 13.5 - 17.5 g/dL LAB HEMETOLOGY METHOD 01/15/2025 10:38 AM EDT [facility] Hematocrit 45.1 42.0 - 54.0 % LAB HEMETOLOGY METHOD 01/15/2025 10:38 AM EDT [facility] MCV 93.6 79.0 - 98.0 FL LAB HEMETOLOGY METHOD 01/15/2025 10:38 AM EDT [facility] MCH 29.3 27.0 - 32.0 pcg LAB HEMETOLOGY METHOD 01/15/2025 10:38 AM EDT [facility] MCHC 31.3(L) 32.0 - 37.0 g/dL LAB HEMETOLOGY METHOD 01/15/2025 10:38 AM EDT [facility] RDW 15.5(H) 11.0 - 15.0 % LAB HEMETOLOGY METHOD 01/15/2025 10:38 AM EDT [facility] Platelets 167 130 - 400 K/mcL LAB HEMETOLOGY METHOD 01/15/2025 10:38 AM EDT [facility] MPV 11.7(H) 7.0 - 11.0 FL LAB HEMETOLOGY METHOD 01/15/2025 10:38 AM EDT [facility] NRBC 0.0 <1.0 % LAB HEMETOLOGY METHOD 01/15/2025 10:38 AM EDT [facility] NRBC Absolute 0.00 <0.10 K/mcL LAB HEMETOLOGY METHOD 01/15/2025 10:38 AM EDT [facility] Blood Venous blood specimen / Unknown Venipuncture / Unknown 01/15/2025 5:51 AM EDT 01/15/2025 9:57 AM EDT us Marianna Ellison MD LAB BLOOD ORDERABLES Fin al Result [facility] [address] [place] [address], * (ABNORMAL) Basic metabolic panel (01/15/2025 5:51 AM EDT) Only the most recent of11 resultswithin the time period is included. Sodium 139 133 - 145 mmol/L LAB CHEMISTRY METHOD 01/15/2025 11:25 AM [facility] Potassium 4.1 3.5 - 5.5 mmol/L LAB CHEMISTRY METHOD 01/15/2025 11:25 AM [facility] Chloride 103 96 - 110 mmol/L LAB CHEMISTRY METHOD 01/15/2025 11:25 AM [facility] CO2 30 21 - 32 mmol/L LAB CHEMISTRY METHOD 01/15/2025 11:25 AM [facility] Anion Gap 6 3 - 11 LAB CHEMISTRY METHOD 01/15/2025 11:25 AM [facility] Glucose 155(H) 70 - 100 mg/dL LAB CHEMISTRY METHOD 01/15/2025 11:25 AM [facility] BUN 30(H) 5 - 25 mg/dL LAB CHEMISTRY METHOD 01/15/2025 11:25 AM [facility] Creatinine 1.61(H) 0.70 - 1.30 mg/dL LAB CHEMISTRY METHOD 01/15/2025 11:25 AM [facility] eGFR 43(L) >=60 mL/min/1. 73m2 LAB CHEMISTRY METHOD 01/15/2025 11:25 AM [facility] Comment:Calculation based on the??Chronic Kidney Disease Epidemiology Collaboration (CKD-EPI) equation refit??without adjustment for race. BUN/Creatinine Ratio 18.6 LAB CHEMISTRY METHOD 01/15/2025 11:25 AM [facility] Calcium 8.9 8.5 - 10.5 mg/dL LAB CHEMISTRY METHOD 01/15/2025 11:25 AM [facility] Blood Venous blood specimen / Unknown Venipuncture / Unknown 01/15/2025 5:51 AM EDT 01/15/2025 9:57 AM EDT Marianna Ellison MD LAB BLOOD ORDERABLES Fin al Result Performing Organization Address City/[facility]/ZIP Co de Phone Number [facility] [address] [place] [address], [place] [phone] * Thyroid stimulating hormone with reflex to free t4 and free t3 (12/27/2024 6:07 AM EST) [facility] TSH 1.07 0.40 - 4.00 mcIU/mL LAB CHEMISTRY METHOD 12/27/2024 11:37 AM EST [facility] Blood Venous blood specimen / Unknown Venipuncture / Unknown 12/27/2024 6:07 AM EST 12/27/2024 9:43 AM EST Marianna Ellison MD LAB BLOOD ORDERABLES Fin al Result Performing Organization Address [facility] Co de Phone Number [facility] [address] [place] [address], [place] [phone] * Folate (12/27/2024 6:07 AM EST) [facility] Folate 9.6 2.8 - 17.0 ng/ml LAB CHEMISTRY METHOD 12/27/2024 11:54 AM EST [facility] Blood Venous blood specimen / Unknown Venipuncture / Unknown 12/27/2024 6:07 AM EST 12/27/2024 9:43 AM EST Marianna Ellison MD LAB BLOOD ORDERABLES Fin al Result Performing Organization Address City/[facility]/ZIP Co de Phone Number [facility] [address] [place] [address], [place] [phone] * Vitamin B12 (12/27/2024 6:07 AM EST) [facility] Vitamin B-12 367 250 - 900 pcg/mL LAB CHEMISTRY METHOD 12/27/2024 11:54 AM [facility] Blood Venous blood specimen / Unknown Venipuncture / Unknown 12/27/2024 6:07 AM EST 12/27/2024 9:43 AM EST us Marianna Ellison MD LAB BLOOD ORDERABLES Fin al Result [facility] [address] [place] [address], * (ABNORMAL) Comprehensive metabolic panel (12/27/2024 6:07 AM EST) Sodium 141 133 - 145 mmol/L LAB CHEMISTRY METHOD 12/27/2024 11:55 AM [facility] Potassium 4.0 3.5 - 5.5 mmol/L LAB CHEMISTRY METHOD 12/27/2024 11:55 AM [facility] Chloride 107 96 - 110 mmol/L LAB CHEMISTRY METHOD 12/27/2024 11:55 AM [facility] CO2 24 21 - 32 mmol/L LAB CHEMISTRY METHOD 12/27/2024 11:55 AM [facility] Anion Gap 10 3 - 11 LAB CHEMISTRY METHOD 12/27/2024 11:55 AM [facility] Glucose 138(H) 70 - 100 mg/dL LAB CHEMISTRY METHOD 12/27/2024 11:55 AM [facility] BUN 19 5 - 25 mg/dL LAB CHEMISTRY METHOD 12/27/2024 11:55 AM [facility] Creatinine 1.12 0.70 - 1.30 mg/dL LAB CHEMISTRY METHOD 12/27/2024 11:55 AM [facility] eGFR 67 >=60 mL/min/1. 73m2 LAB CHEMISTRY METHOD 12/27/2024 11:55 AM [facility] Comment:Calculation based on the??Chronic Kidney Disease Epidemiology Collaboration (CKD-EPI) equation refit??without adjustment for race. BUN/Creatinine Ratio 17.0 LAB CHEMISTRY METHOD 12/27/2024 11:55 AM [facility] Calcium 8.7 8.5 - 10.5 mg/dL LAB CHEMISTRY METHOD 12/27/2024 11:55 AM [facility] AST (SGOT) 23 10 - 42 unit/L LAB CHEMISTRY METHOD 12/27/2024 11:55 AM [facility] ALT (SGPT) 24 10 - 60 unit/L LAB CHEMISTRY METHOD 12/27/2024 11:55 AM [facility] Alkaline Phosphatase 133(H) 42 - 121 unit/L LAB CHEMISTRY METHOD 12/27/2024 11:55 AM [facility] Total Protein 6.3 6.0 - 8.0 g/dL LAB CHEMISTRY METHOD 12/27/2024 11:55 AM [facility] Albumin 3.0(L) 3.2 - 5.0 g/dL LAB CHEMISTRY METHOD 12/27/2024 11:55 AM [facility] Total Bilirubin 0.6 0.0 - 1.4 mg/dL LAB CHEMISTRY METHOD 12/27/2024 11:55 AM [facility] Blood Venous blood specimen / Unknown Venipuncture / Unknown 12/27/2024 6:07 AM EST 12/27/2024 9:43 AM EST us Marianna Ellison MD LAB BLOOD ORDERABLES Fin al Result [facility] [address] [place] [address], * (ABNORMAL) Hemoglobin A1c (11/09/2024 7:22 AM EST) Hemoglobin A1C 8.0(H) <6.5 % LAB CHEMISTRY METHOD 11/09/2024 9:56 PM EST [facility] Mean Bld Glu Estim. 183 mg/dL LAB CHEMISTRY METHOD 11/09/2024 9:56 PM EST [facility] Blood Venous blood specimen / Unknown Venipuncture / Unknown 11/09/2024 7:22 AM EST 11/09/2024 11:58 AM EST Marianna Ellison MD LAB BLOOD ORDERABLES Fin al Result [facility] [address] [place] [address], * HM Urine Albumin Creatinine Ratio (12/11/2003) Urine Albumin Creatinine Ratio abstracted Historical Provider HEALTH MAINTENANCE Final Result * (ABNORMAL) Lipid panel (12/11/2003) LDL/HDL Ratio 5 <=5 Triglycerides 293(A) <=150 mg/dL Cholesterol 204(A) <=200 mg/dL HDL 41 >=40 mg/dL LDL Cholesterol 105(A) <=100 mg/dL Blood Venous blood specimen / Unknown Historical Provider LAB BLOOD ORDERABLES Natalie l Result from Last 3 Months or Most Recently Relevant to Health Maintenance Insurance [employer] Care Teams Fire Captain Marine Relationship Specialty Start Date End Date Maci Carvajal PA [address] [place] [address] PCP - General 06/25/23
--- OUTSIDE RECORDS SUMMARY | 2025-03-01 15:32 | XMS_ITS | Encounter Summary ---
Author Organization [facility] Address [address] [place] [address] Care Team Providers Care Meter Mechanic Name Role Phone Maci Carvajal Primary Care Provider [phone] Encounter Details Date Type Department Care Team (Late st Contact Info) Description 11/22/2024 Lab Requisition [facility] - Main Lab [address] [facility] [place] [address] Marianna Ellison MD [address] [address] Pain, unspecified; Type 2 diabetes mellitus without complications (CMS/HCC [...] 05/23/2025 10:20 AM EDT Office Visit [facility] Cardiology [facility] [address] [place] [address] [address] [place] [phone] Sajan Noriega MD [address] [place] [address] [address] [place] [address] documented as of this encounter Procedures Procedure Name Priority Date/Time Associated Diagnosis Comments COMPLETE BLOOD COUNT Routine 11/23/2024 6:14 AM EST Pain, unspecified Type 2 diabetes mellitus without complications (CMS/HCC) Weakness COMPREHENSIVE METABOLIC PANEL Routine 11/23/2024 6:14 AM EST Pain, unspecified Type 2 diabetes mellitus without complications (CMS/HCC) Weakness documented in this encounter Results * (ABNORMAL) Comprehensive metabolic panel (11/23/2024 6:14 AM EST) Sodium 136 133 - 145 mmol/L LAB CHEMISTRY METHOD 11/23/2024 12:19 PM [facility] Potassium 4.8 3.5 - 5.5 mmol/L LAB CHEMISTRY METHOD 11/23/2024 12:19 PM [facility] Chloride 101 96 - 110 mmol/L LAB CHEMISTRY METHOD 11/23/2024 12:19 PM [facility] CO2 30 21 - 32 mmol/L LAB CHEMISTRY METHOD 11/23/2024 12:19 PM [facility] Anion Gap 5 3 - 11 LAB CHEMISTRY METHOD 11/23/2024 12:19 PM [facility] Glucose 132(H) 70 - 100 mg/dL LAB CHEMISTRY METHOD 11/23/2024 12:19 PM [facility] BUN 29(H) 5 - 25 mg/dL LAB CHEMISTRY METHOD 11/23/2024 12:19 PM [facility] Creatinine 1.19 0.70 - 1.30 mg/dL LAB CHEMISTRY METHOD 11/23/2024 12:19 PM [facility] eGFR 62 >=60 mL/min/1. 73m2 LAB CHEMISTRY METHOD 11/23/2024 12:19 PM [facility] Comment:Calculation based on the??Chronic Kidney Disease Epidemiology Collaboration (CKD-EPI) equation refit??without adjustment for race. BUN/Creatinine Ratio 24.4 LAB CHEMISTRY METHOD 11/23/2024 12:19 PM [facility] Calcium 8.8 8.5 - 10.5 mg/dL LAB CHEMISTRY METHOD 11/23/2024 12:19 PM [facility] AST (SGOT) 25 10 - 42 unit/L LAB CHEMISTRY METHOD 11/23/2024 12:19 PM [facility] ALT (SGPT) 29 10 - 60 unit/L LAB CHEMISTRY METHOD 11/23/2024 12:19 PM [facility] Alkaline Phosphatase 130(H) 42 - 121 unit/L LAB CHEMISTRY METHOD 11/23/2024 12:19 PM [facility] Total Protein 6.2 6.0 - 8.0 g/dL LAB CHEMISTRY METHOD 11/23/2024 12:19 PM [facility] Albumin 2.6(L) 3.2 - 5.0 g/dL LAB CHEMISTRY METHOD 11/23/2024 12:19 PM [facility] Total Bilirubin 0.5 0.0 - 1.4 mg/dL LAB CHEMISTRY METHOD 11/23/2024 12:19 PM [facility] Blood Venous blood specimen / Unknown Venipuncture / Unknown 11/23/2024 6:14 AM EST 11/23/2024 11:00 AM EST us Marianna Ellison MD LAB BLOOD ORDERABLES Fin al Result [facility] [address] [place] [address], * (ABNORMAL) Complete blood count (11/23/2024 6:14 AM EST) WBC 13.9(H) 4.8 - 10.8 K/mcL LAB HEMETOLOGY METHOD 11/23/2024 11:40 AM EST [facility] RBC 4.40(L) 4.50 - 5.50 M/mcL LAB HEMETOLOGY METHOD 11/23/2024 11:40 AM [facility] Hemoglobin 12.8(L) 13.5 - 17.5 g/dL LAB HEMETOLOGY METHOD 11/23/2024 11:40 AM [facility] Hematocrit 40.4(L) 42.0 - 54.0 % LAB HEMETOLOGY METHOD 11/23/2024 11:40 AM [facility] MCV 92.9 79.0 - 98.0 FL LAB HEMETOLOGY METHOD 11/23/2024 11:40 AM [facility] MCH 29.4 27.0 - 32.0 pcg LAB HEMETOLOGY METHOD 11/23/2024 11:40 AM [facility] MCHC 31.7(L) 32.0 - 37.0 g/dL LAB HEMETOLOGY METHOD 11/23/2024 11:40 AM [facility] RDW 13.8 11.0 - 15.0 % LAB HEMETOLOGY METHOD 11/23/2024 11:40 AM [facility] Platelets 299 130 - 400 K/mcL LAB HEMETOLOGY METHOD 11/23/2024 11:40 AM [facility] MPV 11.1(H) 7.0 - 11.0 FL LAB HEMETOLOGY METHOD 11/23/2024 11:40 AM [facility] NRBC 0.0 <1.0 % LAB HEMETOLOGY METHOD 11/23/2024 11:40 AM [facility] NRBC Absolute 0.00 <0.10 K/mcL LAB HEMETOLOGY METHOD 11/23/2024 11:40 AM [facility] Blood Venous blood specimen / Unknown Venipuncture / Unknown 11/23/2024 6:14 AM EST 11/23/2024 11:00 AM EST Marianna Ellison MD LAB BLOOD ORDERABLES Fin al Result [facility] [address] [place] [address], documented in this encounter Visit Diagnoses Diagnosis Pain, unspecified Type 2 diabetes mellitus without complications (CMS/HCC V24, CMS/HCC V28) Weakness Other malaise and fatigue documented in this encounter Care Teams Meter Mechanic Relationship Specialty Start Date End Date Maci Carvajal PA [address] [place] [phone] PCP - General 06/25/23 documented as of this encounter
--- OUTSIDE RECORDS SUMMARY | 2025-03-01 15:32 | XMS_ITS | Encounter Summary ---
Author Organization [facility] Address [address] [place] [address] Care Team Providers Care Plug Cutting Machine Operator Name Role Phone Maci Carvajal Primary Care Provider [phone] Encounter Details Date Type Department Care Team (Late st Contact Info) Description 11/26/2024 Lab Requisition [facility] - Main Lab [address] [facility] [place] [address] Marianna Ellison MD [address] [address] Type 2 diabetes mellitus without complications (CMS/HCC [...] Description 05/23/2025 10:20 AM EDT Office Visit [facility] [address] [place] [phone] Sajan Noriega MD [address] [place] [address] [address] [place] [address] documented as of this encounter Procedures Procedure Name Priority Date/Time Associated Diagnosis Comments COMPLETE BLOOD COUNT Routine 11/27/2024 7:28 AM EST Type 2 diabetes mellitus without complications ([facility]/HCC) Weakness BASIC METABOLIC PANEL Routine 11/27/2024 7:28 AM EST Type 2 diabetes mellitus without complications ([facility]/HCC) Weakness documented in this encounter Results * (ABNORMAL) Basic metabolic panel (11/27/2024 7:28 AM EST) Sodium 139 133 - 145 mmol/L LAB CHEMISTRY METHOD 11/27/2024 1:51 PM [facility] Potassium 4.3 3.5 - 5.5 mmol/L LAB CHEMISTRY METHOD 11/27/2024 1:51 PM [facility] Chloride 103 96 - 110 mmol/L LAB CHEMISTRY METHOD 11/27/2024 1:51 PM [facility] CO2 32 21 - 32 mmol/L LAB CHEMISTRY METHOD 11/27/2024 1:51 PM [facility] Anion Gap 4 3 - 11 LAB CHEMISTRY METHOD 11/27/2024 1:51 PM [facility] Glucose 128(H) 70 - 100 mg/dL LAB CHEMISTRY METHOD 11/27/2024 1:51 PM [facility] BUN 29(H) 5 - 25 mg/dL LAB CHEMISTRY METHOD 11/27/2024 1:51 PM [facility] Creatinine 1.31(H) 0.70 - 1.30 mg/dL LAB CHEMISTRY METHOD 11/27/2024 1:51 PM [facility] eGFR 55(L) >=60 mL/min/1. 73m2 LAB CHEMISTRY METHOD 11/27/2024 1:51 PM [facility] Comment:Calculation based on the??Chronic Kidney Disease Epidemiology Collaboration (CKD-EPI) equation refit??without adjustment for race. BUN/Creatinine Ratio 22.1 LAB CHEMISTRY METHOD 11/27/2024 1:51 PM [facility] Calcium 8.7 8.5 - 10.5 mg/dL LAB CHEMISTRY METHOD 11/27/2024 1:51 PM [facility] Blood Venous blood specimen / Unknown Venipuncture / Unknown 11/27/2024 7:28 AM EST 11/27/2024 11:28 AM EST us Marianna Ellison MD LAB BLOOD ORDERABLES Fin al Result [facility] [address] [place] [address], [place] [phone] * (ABNORMAL) Complete blood count (11/27/2024 7:28 AM EST) WBC 9.7 4.8 - 10.8 K/mcL LAB HEMETOLOGY METHOD 11/27/2024 1:19 PM [facility] RBC 4.30(L) 4.50 - 5.50 M/mcL LAB HEMETOLOGY METHOD 11/27/2024 1:19 PM [facility] Hemoglobin 12.6(L) 13.5 - 17.5 g/dL LAB HEMETOLOGY METHOD 11/27/2024 1:19 PM [facility] Hematocrit 40.7(L) 42.0 - 54.0 % LAB HEMETOLOGY METHOD 11/27/2024 1:19 PM [facility] MCV 94.4 79.0 - 98.0 FL LAB HEMETOLOGY METHOD 11/27/2024 1:19 PM [facility] MCH 29.2 27.0 - 32.0 pcg LAB HEMETOLOGY METHOD 11/27/2024 1:19 PM [facility] MCHC 31.0(L) 32.0 - 37.0 g/dL LAB HEMETOLOGY METHOD 11/27/2024 1:19 PM [facility] RDW 13.9 11.0 - 15.0 % LAB HEMETOLOGY METHOD 11/27/2024 1:19 PM EST [facility] Platelets 276 130 - 400 K/mcL LAB HEMETOLOGY METHOD 11/27/2024 1:19 PM EST [facility] MPV 11.2(H) 7.0 - 11.0 FL LAB HEMETOLOGY METHOD 11/27/2024 1:19 PM EST [facility] NRBC 0.0 <1.0 % LAB HEMETOLOGY METHOD 11/27/2024 1:19 PM EST [facility] NRBC Absolute 0.00 <0.10 K/mcL LAB HEMETOLOGY METHOD 11/27/2024 1:19 PM [facility] Blood Venous blood specimen / Unknown Venipuncture / Unknown 11/27/2024 7:28 AM EST 11/27/2024 11:28 AM EST us Marianna Ellison MD LAB BLOOD ORDERABLES Fin al Result [facility] [address] [place] [address], documented in this encounter Visit Diagnoses Diagnosis Type 2 diabetes mellitus without complications (CMS/HCC V24, CMS/HCC V28) Weakness Other malaise and fatigue documented in this encounter Care Teams Plug Cutting Machine Operator Relationship Specialty Start Date End Date Maci Carvajal PA [address] [place] [address] PCP - General 06/25/23 documented as of this encounter
== END 2025-03-01 14:53 | disposition home or self-care (01) ==
LOC: HO.HKAS 13:06
PROVIDERS: Visit Provider Internal Medicine Nephrology
DX: N18.32 Chronic kidney disease, stage 3b (principal); E11.21 Type 2 diabetes mellitus with diabetic nephropathy; Z79.4 Long term (current) use of insulin; I10 Essential (primary) hypertension
CPT/HCPCS: 99214

== ENCOUNTER → 2025-03-01 13:05 | Outpatient (BNVA) | payer OTHER, SELFPAY | PROVIDERS: Visit Provider Internal Medicine Nephrology ==

== ENCOUNTER 2025-08-02 13:31 | Outpatient (AMB) | payer OTHER, SELFPAY ==
--- OUTSIDE RECORDS SUMMARY | 2024-12-26 09:30 | XMS_ITS ---
Author Organization [facility] Address [address] [place] [address] Care Team Providers Care Laundry Bag Punch Operator Name Role Phone Niki VELÁZQUEZ, Brennan Primary Care Provider Unavailab Piper Gonzalez Unavailable [phone] Maci Carvajal Unavailable Unavailable Encounters Encounter Location Date Provider Diagnosis [address] [address] 12/26/2024 Piper Santos Plan Of Treatment No Information Progress Notes * Jim AUGUSTIN ADOB:[birth year] (80 yo M)Acc No.[id number]:12/26/2024 Progress Note Patient: Jim SÁNCHEZ Provider: Osvaldo Santos DPM :1945 A ge:79 Y S ex:Male Date:12/26/2024 Address:[address] [id number] Pcp:Brennan Prince MD Subjective: * Chief Complaints: * * Medical History: Objective: * Vitals: Assessment: Plan: * Treatment: * Images: * The named appointment provid er may or may not be the originator of this progress note, and it is not deemed complete until electronically signed by the appointment provider. Sign off status: Pending * Provider: Osvaldo Santos DPM Date: 0 12/26/2024 Generated for Printi ng/Faxing/eTransmitting on: 03:00 PM EDT
[2025-08-02 14:04] VITALS: BP 130/80; PULSE 78; O2SAT 95; BMI 27.9
--- NOTE | 2025-08-02 14:04 | HO.NEPHOV ---
Vital Signs 08/02/25 14:04 Height 6 ft Weight 205 lb 6 oz BMI 27.9 BP 130/80 Blood Pressure Location Rt brachial Position Sitting Pulse 78 Pulse Source Pulse Oximeter Pulse Oximetry (%) 95 Oxygen Delivery Method Room Air Intake Visit Reasons: 4mon follow-up w/labs Hairspring Ii Inspector Required: No Accompanied by: Spouse Allergies No Known Allergies Allergy (Verified 08/02/25 14:10) HPI Comments Details: Jim was seen in follow-up for his chronic kidney disease and hypertension. He has history of right and left BKA . His blood sugars are not well controlled. He had MJ post op but improved now. He is on aspirin. He is tolerating Jardiance. He denies nausea, vomiting, diarrhea, chest pain, shortness of breath, paroxysmal nocturnal dyspnea or orthopnea. He does not take any nonsteroidal anti-inflammatory medications. He maintains good hydration. He does not have any orthostatic symptoms PFSH Medical History Type 2 diabetes mellitus with diabetic nephropathy Hypertension CKD (chronic kidney disease) stage 3, GFR 30-59 ml/min Family History Mother Cancer Father Cancer Social History Alcohol intake: never Patient Tobacco Use Status: Former Tobacco user Review of Systems Const All systems reviewed & are unremarkable except as noted in HPI and below Physical Exam Vital Signs: Last Vital Signs Pulse 78 08/02/25 14:04 BP 130/80 08/02/25 14:04 Pulse Ox 95 08/02/25 14:04 Oxygen Delivery Method Room Air 08/02/25 14:04 BMI result Body Mass Index 27.9 Const General: comfortable and no acute distress Orientation/consciousness: patient oriented x3 HEENT Head: Yes normocephalic Mouth: Normal oral and palatal mucosa present Eyes EOM: EOMs intact bilaterally Neck Neck: Yes supple Resp Auscultation: clear to auscultation bilaterally Cardio Jugular venous distension: no JVD Rate: regular rate GI Palpation (GI): Soft to palpation Auscultation: normal bowel sounds General: Yes no CVA tenderness Back/Spine/Pelvis Back: no CVA tenderness Skin General skin exam: no rashes or lesions noted Neuro General: patient oriented x3 and moves all extremities Assessment & Plan Assessment & Plan (1) Hypertension: Code(s): I10 - Essential (primary) hypertension Category: Medical Qualifiers: Hypertension type: primary hypertension Qualified Code(s): I10 - Essential (primary) hypertension (2) CKD (chronic kidney disease) stage 3, GFR 30-59 ml/min: Code(s): N18.30 - Chronic kidney disease, stage 3 unspecified Category: Medical Qualifiers: Chronic kidney disease stage 3 subtype: stage 3b (GFR 30-44) Qualified Code(s): N18.32 - Chronic kidney disease, stage 3b (3) Type 2 diabetes mellitus with diabetic nephropathy: Code(s): E11.21 - Type 2 diabetes mellitus with diabetic nephropathy Category: Medical Qualifiers: Diabetes mellitus senior living insulin use: with senior living use Qualified Code(s): E11.21 - Type 2 diabetes mellitus with diabetic nephropathy; Z79.4 - long term acute care registered nurse (current) use of insulin Plan 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 He has history of severe vascular disease. He is status post right and left BKA. He is off his DARLENE inhibitor . He is tolerating Jardiance. His blood pressure is at goal. He needs to maintain good blood sugar. His volume status is optimal. I did not make any medication changes today. He avoids nonsteroidal anti-inflammatories. He should maintain good hydration. Answered all his and his 's questions Orders: Orders Electrolytes 6 Months E11.21 - Type 2 diabetes mellitus with diabetic nephropathy, I10 - Essential (primary) hypertension, N18.32 - Chronic kidney disease, stage 3b, Z79.4 - halfway (current) use of insulin Blood Urea Nitrogen 6 Months E11.21 - Type 2 diabetes mellitus with diabetic nephropathy, I10 - Essential (primary) hypertension, N18.32 - Chronic kidney disease, stage 3b, Z79.4 - halfway (current) use of insulin Creatinine 6 Months E11.21 - Type 2 diabetes mellitus with diabetic nephropathy, I10 - Essential (primary) hypertension, N18.32 - Chronic kidney disease, stage 3b, Z79.4 - long term acute care registered nurse (current) use of insulin Coding Level of Care Code Est Pt Level 4 (88425) Diagnoses Primary hypertension I10 Hypertension type: primary hypertension Stage 3b chronic kidney disease N18.32 Chronic kidney disease stage 3 subtype: stage 3b (GFR 30-44) Type 2 diabetes mellitus with diabetic nephropathy, with long-term current use of insulin E11.21; Z79.4 Diabetes mellitus senior living insulin use: with long term acute care registered nurse use
--- OUTSIDE RECORDS SUMMARY | 2025-08-02 15:00 | XMS_ITS | Encounter Summary ---
Author Organization [facility] Address [address] [place] [address] Care Team Providers Care Napkin Machine Operator Name Role Phone Brennan Prince MD Primary Care Provider [phone] Encounter Details Date Type Department Care Team (Late st Contact Info) Description 12/15/2024 Lab Requisition [facility] - Main Lab 299 [facility] [place] [address] Marianna Ellison MD [address] [facility] 1 [place] [address] Weakness; Type 2 diabetes mellitus without complications [...] Care Team (Late st Contact Info) Description 11/16/2025 9:50 AM EST Office Visit [facility] - [facility] [address] [place] [address] Sajan Noriega MD Medical [address] [place] [phone] documented as of this encounter Procedures Procedure Name Priority Date/Time Associated Diagnosis Comments COMPLETE BLOOD COUNT Routine 12/18/2024 6:18 AM EST Weakness Type 2 diabetes mellitus without complications (CMS/HCC) BASIC METABOLIC PANEL Routine 12/18/2024 6:18 AM EST Weakness Type 2 diabetes mellitus without complications (CMS/HCC) documented in this encounter Results * (ABNORMAL) Basic metabolic panel (12/18/2024 6:18 AM EST) Sodium 141 133 - 145 mmol/L LAB CHEMISTRY METHOD 12/18/2024 1:27 PM [facility] Potassium 4.2 3.5 - 5.5 mmol/L LAB CHEMISTRY METHOD 12/18/2024 1:27 PM [facility] Chloride 105 96 - 110 mmol/L LAB CHEMISTRY METHOD 12/18/2024 1:27 PM [facility] CO2 25 21 - 32 mmol/L LAB CHEMISTRY METHOD 12/18/2024 1:27 PM [facility] Anion Gap 11 3 - 11 LAB CHEMISTRY METHOD 12/18/2024 1:27 PM [facility] Glucose 140(H) 70 - 100 mg/dL LAB CHEMISTRY METHOD 12/18/2024 1:27 PM [facility] BUN 32(H) 5 - 25 mg/dL LAB CHEMISTRY METHOD 12/18/2024 1:27 PM [facility] Creatinine 1.50(H) 0.70 - 1.30 mg/dL LAB CHEMISTRY METHOD 12/18/2024 1:27 PM [facility] eGFR 47(L) >=60 mL/min/1. 73m2 LAB CHEMISTRY METHOD 12/18/2024 1:27 PM [facility] Comment:Calculation based on the Chronic Kidney Disease Epidemiology Collaboration (CKD-EPI) equation refit without adjustment for race. BUN/Creatinine Ratio 21.3 LAB CHEMISTRY METHOD 12/18/2024 1:27 PM [facility] Calcium 8.9 8.5 - 10.5 mg/dL LAB CHEMISTRY METHOD 12/18/2024 1:27 PM [facility] Blood Venous blood specimen / Unknown Venipuncture / Unknown 12/18/2024 6:18 AM EST 12/18/2024 11:40 AM EST us Marianna Ellison MD LAB BLOOD ORDERABLES Fin al Result [facility] [address] [place] [address], * (ABNORMAL) Complete blood count (12/18/2024 6:18 AM EST) WBC 8.3 4.8 - 10.8 K/mcL LAB HEMETOLOGY METHOD 12/18/2024 1:13 PM [facility] RBC 4.60 4.50 - 5.50 M/mcL LAB HEMETOLOGY METHOD 12/18/2024 1:13 PM [facility] Hemoglobin 13.4(L) 13.5 - 17.5 g/dL LAB HEMETOLOGY METHOD 12/18/2024 1:13 PM [facility] Hematocrit 43.0 42.0 - 54.0 % LAB HEMETOLOGY METHOD 12/18/2024 1:13 PM [facility] MCV 94.5 79.0 - 98.0 FL LAB HEMETOLOGY METHOD 12/18/2024 1:13 PM [facility] MCH 29.5 27.0 - 32.0 pcg LAB HEMETOLOGY METHOD 12/18/2024 1:13 PM [facility] MCHC 31.2(L) 32.0 - 37.0 g/dL LAB HEMETOLOGY METHOD 12/18/2024 1:13 PM [facility] RDW 15.8(H) 11.0 - 15.0 % LAB HEMETOLOGY METHOD 12/18/2024 1:13 PM EST [facility] Platelets 156 130 - 400 K/mcL LAB HEMETOLOGY METHOD 12/18/2024 1:13 PM EST [facility] MPV 12.2(H) 7.0 - 11.0 FL LAB HEMETOLOGY METHOD 12/18/2024 1:13 PM EST [facility] NRBC 0.0 <1.0 % LAB HEMETOLOGY METHOD 12/18/2024 1:13 PM EST [facility] NRBC Absolute 0.00 <0.10 K/mcL LAB HEMETOLOGY METHOD 12/18/2024 1:13 PM EST [facility] Blood Venous blood specimen / Unknown Venipuncture / Unknown 12/18/2024 6:18 AM EST 12/18/2024 11:40 AM EST us Marianna Ellison MD LAB BLOOD ORDERABLES Fin al Result [facility] [address] [place] [address], documented in this encounter Visit Diagnoses Diagnosis Weakness Other malaise and fatigue Type 2 diabetes mellitus without complications (CMS/HCC V24, CMS/HCC V28) documented in this encounter Care Teams Napkin Machine Operator Relationship Specialty Start Date End Date Brennan Prince MD [address] [facility] BREE Diaz PCP - General Internal Medicine 05/23/25 documented as of this encounter
--- OUTSIDE RECORDS SUMMARY | 2025-08-02 15:00 | XMS_ITS | Encounter Summary ---
Author Organization [facility] Address [address] [place] [address] Care Team Providers Care Fitter Up Name Role Phone Brennan Prince MD Primary Care Provider [phone] Encounter Details Date Type Department Care Team (Late st Contact Info) Description 10/06/2024 Lab Requisition [facility] - Main Lab 299 [facility] [place] [address] Gadiel Armstrong PA [address] [facility] [address] [place] [address] Benign essential microscopic hematuria Social [...] Description 11/16/2025 9:50 AM EST Office Visit [facility] [address] [facility] [address] [place] [address] Sajan Noriega MD Medical [address] [place] [phone] documented as of this encounter Procedures Procedure Name Priority Date/Time Associated Diagnosis Comments AP OUTSIDE CONSULT Routine 10/03/2024 12 :00 AM EST Benign essential microscopic hematuria documented in this encounter Results * Anatomic pathology outside consult (10/03/2024 12:00 AM EST) Final Diagnosis Urine, Voided: Negative for high-grade urothelial carcinoma. Abundant acute inflammation. Scant urothelial cellularity. 10/20/2024 5:55 PM EST [facility] Clinical Information [id number] Urine Cytology (now) 10/20/2024 5:55 PM EST [facility] Gross Description A. Urine, Voided, : [id number] Received 1 TP 10/20/2024 5:55 PM EST [facility] Disclaimer Unless otherwise specified, all tissue is 10% NB formalin fixed and paraffin embedded. Technical pathology services provided by [facility] Urology at [address] [facility] [address], [place] [address] (CLIA #[id number] alexandr Saenz MD, Set Up And Charger) 10/20/2024 5:55 PM EST [facility] Tissue Urine specimen from urethra / Unknown 10/03/2024 10/06/2024 3:18 PM EST us Gadiel R Patti NEW LAB PATHOLOGY ORDERABLES Final Result [facility] [address] [place] [address], documented in this encounter Visit Diagnoses Diagnosis Benign essential microscopic hematuria documented in this encounter Care Teams Fitter Up Relationship Specialty Start Date End Date Brennan Prince MD [address] [place], [place] [address]BREE sarmiento PCP - General Internal Medicine 05/23/25 documented as of this encounter
--- OUTSIDE RECORDS SUMMARY | 2025-08-02 15:00 | XMS_ITS | Encounter Summary ---
Author Organization [facility] Address [address] [place] [address] Care Team Providers Care Automotive Painter Helper Name Role Phone Brennan Prince MD Primary Care Provider [phone] Encounter Details Date Type Department Care Team (Late st Contact Info) Description 01/17/[address] [facility] - Main Lab 299 [facility] [place] [address] Marianna Ellison MD [address] [facility] 1 [place] [address] Weakness; Type 2 diabetes mellitus without complications [...] Description 11/16/2025 9:50 AM EST Office Visit [facility] [address] [place] [address] Sajan Noriega MD Medical [address] [place] [phone] documented as of this encounter Visit Diagnoses Diagnosis Weakness Other malaise and fatigue Type 2 diabetes mellitus without complications (CMS/HCC V24, CMS/HCC V28) documented in this encounter Care Teams Automotive Painter Helper Relationship Specialty Start Date End Date Brennan Prince MD [address] [facility] BREE Diaz PCP - General Internal Medicine 05/23/25 documented as of this encounter
--- OUTSIDE RECORDS SUMMARY | 2025-08-02 15:00 | XMS_ITS | Encounter Summary ---
Author Organization [facility] Address [address] [place] [address] Care Team Providers Care Eeg Technician Name Role Phone Brennan Prince MD Primary Care Provider [phone] Encounter Details Date Type Department Care Team (Late st Contact Info) Description 01/13/2025 Lab Requisition [facility] - Main Lab 299 [facility] [place] [address] Marianna Ellison MD 8[address] [facility] 1 [place] [address] Weakness; Type 2 diabetes mellitus without complications [...] Description 11/16/2025 9:50 AM EST Office Visit [facility] - [facility] [address] [place] [address] Sajan Noriega MD Medical [address] [place] [phone] documented as of this encounter Procedures Procedure Name Priority Date/Time Associated Diagnosis Comments COMPLETE BLOOD COUNT Routine 01/15/2025 5:51 AM EDT Weakness Type 2 diabetes mellitus without complications ([facility]/HCC) BASIC METABOLIC PANEL Routine 01/15/2025 5:51 AM EDT Weakness Type 2 diabetes mellitus without complications ([facility]/HCC) documented in this encounter Results * (ABNORMAL) Basic metabolic panel (01/15/2025 5:51 AM EDT) Pathologist [facility] Sodium 139 133 - 145 mmol/L LAB CHEMISTRY METHOD 01/15/2025 11:25 AM [facility] Potassium 4.1 3.5 - 5.5 mmol/L LAB CHEMISTRY METHOD 01/15/2025 11:25 AM [facility] Chloride 103 96 - 110 mmol/L LAB CHEMISTRY METHOD 01/15/2025 11:25 AM [facility] CO2 30 21 - 32 mmol/L LAB CHEMISTRY METHOD 01/15/2025 11:25 AM [facility] Anion Gap 6 3 - 11 LAB CHEMISTRY METHOD 01/15/2025 11:25 AM [facility] Glucose 155(H) 70 - 100 mg/dL LAB CHEMISTRY METHOD 01/15/2025 11:25 AM [facility] BUN 30(H) 5 - 25 mg/dL LAB CHEMISTRY METHOD 01/15/2025 11:25 AM [facility] Creatinine 1.61(H) 0.70 - 1.30 mg/dL LAB CHEMISTRY METHOD 01/15/2025 11:25 AM [facility] eGFR 43(L) >=60 mL/min/1. 73m2 LAB CHEMISTRY METHOD 01/15/2025 11:25 AM [facility] Comment:Calculation based on the Chronic Kidney Disease Epidemiology Collaboration (CKD-EPI) equation refit without adjustment for race. BUN/Creatinine Ratio 18.6 LAB CHEMISTRY METHOD 01/15/2025 11:25 AM EDT [facility] Calcium 8.9 8.5 - 10.5 mg/dL LAB CHEMISTRY METHOD 01/15/2025 11:25 AM EDT [facility] Blood Venous blood specimen / Unknown Venipuncture / Unknown 01/15/2025 5:51 AM EDT 01/15/2025 9:57 AM EDT us Marianna Ellison MD LAB BLOOD ORDERABLES Fin al Result [facility] [address] [place] [address], * (ABNORMAL) Complete blood count (01/15/2025 5:51 AM EDT) WBC 6.8 4.8 - 10.8 K/mcL LAB HEMETOLOGY METHOD 01/15/2025 10:38 AM [facility] RBC 4.80 4.50 - 5.50 M/mcL LAB HEMETOLOGY METHOD 01/15/2025 10:38 AM [facility] Hemoglobin 14.1 13.5 - 17.5 g/dL LAB HEMETOLOGY METHOD 01/15/2025 10:38 AM [facility] Hematocrit 45.1 42.0 - 54.0 % LAB HEMETOLOGY METHOD 01/15/2025 10:38 AM [facility] MCV 93.6 79.0 - 98.0 FL LAB HEMETOLOGY METHOD 01/15/2025 10:38 AM [facility] MCH 29.3 27.0 - 32.0 pcg LAB HEMETOLOGY METHOD 01/15/2025 10:38 AM [facility] MCHC 31.3(L) 32.0 - 37.0 g/dL LAB HEMETOLOGY METHOD 01/15/2025 10:38 AM EDT [facility] RDW 15.5(H) 11.0 - 15.0 % LAB HEMETOLOGY METHOD 01/15/2025 10:38 AM EDT [facility] Platelets 167 130 - 400 K/mcL LAB HEMETOLOGY METHOD 01/15/2025 10:38 AM EDT [facility] MPV 11.7(H) 7.0 - 11.0 FL LAB HEMETOLOGY METHOD 01/15/2025 10:38 AM EDT [facility] NRBC 0.0 <1.0 % LAB HEMETOLOGY METHOD 01/15/2025 10:38 AM EDT [facility] NRBC Absolute 0.00 <0.10 K/mcL LAB HEMETOLOGY METHOD 01/15/2025 10:38 AM EDT [facility] Blood Venous blood specimen / Unknown Venipuncture / Unknown 01/15/2025 5:51 AM EDT 01/15/2025 9:57 AM EDT us Marianna Ellison MD LAB BLOOD ORDERABLES Fin al Result [facility] [address] [place] [address], documented in this encounter Visit Diagnoses Diagnosis Weakness Other malaise and fatigue Type 2 diabetes mellitus without complications (CMS/HCC V24, CMS/HCC V28) documented in this encounter Care Teams Eeg Technician Relationship Specialty Start Date End Date Brennan Prince MD [address] [place], [place] PCP - General Internal Medicine 05/23/25 documented as of this encounter
--- OUTSIDE RECORDS SUMMARY | 2025-08-02 15:00 | XMS_ITS | Encounter Summary ---
Author Organization [facility] Address [address] [place] [address] Care Team Providers Care Phlebotomist Prn Name Role Phone Brennan Prince MD Primary Care Provider Encounter Details Date Type Department Care Team (Late st Contact Info) Description 12/08/2024 Lab Requisition [facility] - Main Lab 299 [facility] [place] [address] Marianna Ellison MD [address] [facility] 1 [place] [address] Type 2 diabetes mellitus without complications (CMS/HCC [...] Description 11/16/2025 9:50 AM EST Office Visit [facility] - Medical [facility] [address] [place] [address] Sajan Noriega MD Medical [place] [address] [place] [phone] documented as of this encounter Procedures Procedure Name Priority Date/Time Associated Diagnosis Comments COMPLETE BLOOD COUNT Routine 12/11/2024 7:02 AM EST Type 2 diabetes mellitus without complications ([facility]/HCC) Weakness BASIC METABOLIC PANEL Routine 12/11/2024 7:02 AM EST Type 2 diabetes mellitus without complications ([facility]/HCC) Weakness documented in this encounter Results * (ABNORMAL) Basic metabolic panel (12/11/2024 7:02 AM EST) Sodium 140 133 - 145 mmol/L LAB CHEMISTRY METHOD 12/11/2024 10:58 AM [facility] Potassium 4.4 3.5 - 5.5 mmol/L LAB CHEMISTRY METHOD 12/11/2024 10:58 AM [facility] Chloride 103 96 - 110 mmol/L LAB CHEMISTRY METHOD 12/11/2024 10:58 AM [facility] CO2 31 21 - 32 mmol/L LAB CHEMISTRY METHOD 12/11/2024 10:58 AM [facility] Anion Gap 6 3 - 11 LAB CHEMISTRY METHOD 12/11/2024 10:58 AM [facility] Glucose 125(H) 70 - 100 mg/dL LAB CHEMISTRY METHOD 12/11/2024 10:58 AM [facility] BUN 37(H) 5 - 25 mg/dL LAB CHEMISTRY METHOD 12/11/2024 10:58 AM [facility] Creatinine 1.53(H) 0.70 - 1.30 mg/dL LAB CHEMISTRY METHOD 12/11/2024 10:58 AM [facility] eGFR 46(L) >=60 mL/min/1. 73m2 LAB CHEMISTRY METHOD 12/11/2024 10:58 AM [facility] Comment:Calculation based on the Chronic Kidney Disease Epidemiology Collaboration (CKD-EPI) equation refit without adjustment for race. BUN/Creatinine Ratio 24.2 LAB CHEMISTRY METHOD 12/11/2024 10:58 AM [facility] Calcium 8.8 8.5 - 10.5 mg/dL LAB CHEMISTRY METHOD 12/11/2024 10:58 AM [facility] Blood Venous blood specimen / Unknown Venipuncture / Unknown 12/11/2024 7:02 AM EST 12/11/2024 10:05 AM EST us Marianna Ellison MD LAB BLOOD ORDERABLES Fin al Result [facility] [address] [place] [address], * (ABNORMAL) Complete blood count (12/11/2024 7:02 AM EST) WBC 7.2 4.8 - 10.8 K/mcL LAB HEMETOLOGY METHOD 12/11/2024 10:26 AM [facility] RBC 4.30(L) 4.50 - 5.50 M/[facility] LAB HEMETOLOGY METHOD 12/11/2024 10:26 AM [facility] Hemoglobin 12.7(L) 13.5 - 17.5 g/dL LAB HEMETOLOGY METHOD 12/11/2024 10:26 AM [facility] Hematocrit 40.9(L) 42.0 - 54.0 % LAB HEMETOLOGY METHOD 12/11/2024 10:26 AM [facility] MCV 95.6 79.0 - 98.0 FL LAB HEMETOLOGY METHOD 12/11/2024 10:26 AM [facility] MCH 29.7 27.0 - 32.0 pcg LAB HEMETOLOGY METHOD 12/11/2024 10:26 AM [facility] MCHC 31.1(L) 32.0 - 37.0 g/dL LAB HEMETOLOGY METHOD 12/11/2024 10:26 AM [facility] RDW 15.8(H) 11.0 - 15.0 % LAB HEMETOLOGY METHOD 12/11/2024 10:26 AM EST [facility] Platelets 191 130 - 400 K/mcL LAB HEMETOLOGY METHOD 12/11/2024 10:26 AM EST [facility] MPV 11.9(H) 7.0 - 11.0 FL LAB HEMETOLOGY METHOD 12/11/2024 10:26 AM EST [facility] NRBC 0.0 <1.0 % LAB HEMETOLOGY METHOD 12/11/2024 10:26 AM EST [facility] NRBC Absolute 0.00 <0.10 K/mcL LAB HEMETOLOGY METHOD 12/11/2024 10:26 AM [facility] Blood Venous blood specimen / Unknown Venipuncture / Unknown 12/11/2024 7:02 AM EST 12/11/2024 10:05 AM EST us Marianna Ellison MD LAB BLOOD ORDERABLES Fin al Result [facility] [address] [place] [address], documented in this encounter Visit Diagnoses Diagnosis Type 2 diabetes mellitus without complications (CMS/HCC V24, CMS/HCC V28) Weakness Other malaise and fatigue documented in this encounter Care Teams Phlebotomist Prn Relationship Specialty Start Date End Date Brennan Prince MD [address] [facility] PCP - General Internal Medicine 05/23/25 documented as of this encounter
--- OUTSIDE RECORDS SUMMARY | 2025-08-02 15:00 | XMS_ITS | Encounter Summary ---
Author Organization [facility] Address [address] [place] [address] Care Team Providers Care Syrup Maker Cook Name Role Phone Brennan Prince MD Primary Care Provider [phone] Encounter Details Date Type Department Care Team (Late st Contact Info) Description 12/20/2024 Lab Requisition [facility] - Main Lab 299 [facility] [place] [address] Marianna Ellison MD [address] [facility] 1 [place] [address] Weakness; Type 2 diabetes mellitus without complications [...] Description 11/16/2025 9:50 AM EST Office Visit [facility] - [facility] [address] [place] [address] Sajan Noriega MD Medical [address] [address] [place] [phone] documented as of this encounter Procedures Procedure [...] mmol/L LAB CHEMISTRY METHOD 12/21/2024 1:34 PM [facility] Potassium 4.3 3.5 - 5.5 mmol/L LAB CHEMISTRY METHOD 12/21/2024 1:34 PM [facility] Chloride 104 96 - 110 mmol/L LAB CHEMISTRY METHOD 12/21/2024 1:34 PM [facility] CO2 24 21 - 32 mmol/L LAB CHEMISTRY METHOD 12/21/2024 1:34 PM [facility] Anion Gap 10 3 - 11 LAB CHEMISTRY METHOD 12/21/2024 1:34 PM [facility] Glucose 141(H) 70 - 100 mg/dL LAB CHEMISTRY METHOD 12/21/2024 1:34 PM [facility] BUN 32(H) 5 - 25 mg/dL LAB CHEMISTRY METHOD 12/21/2024 1:34 PM [facility] Creatinine 1.38(H) 0.70 - 1.30 mg/dL LAB CHEMISTRY METHOD 12/21/2024 1:34 PM [facility] eGFR 52(L) >=60 mL/min/1. 73m2 LAB CHEMISTRY METHOD 12/21/2024 1:34 PM [facility] Comment:Calculation based on the Chronic Kidney Disease Epidemiology Collaboration (CKD-EPI) equation refit without adjustment for race. BUN/Creatinine Ratio 23.2 LAB CHEMISTRY METHOD 12/21/2024 1:34 PM [facility] Calcium 8.9 8.5 - 10.5 mg/dL LAB CHEMISTRY METHOD 12/21/2024 1:34 PM EST [facility] Blood Venous blood specimen / Unknown Venipuncture / Unknown 12/21/2024 8:52 AM EST 12/21/2024 11:25 AM EST us Marianna Ellison MD LAB BLOOD ORDERABLES Fin al Result [facility] [address] [place] [address], * (ABNORMAL) Complete blood count (12/21/2024 8:52 AM EST) WBC 9.4 4.8 - 10.8 K/mcL LAB HEMETOLOGY METHOD 12/21/2024 1:22 PM [facility] RBC 4.60 4.50 - 5.50 M/mcL LAB HEMETOLOGY METHOD 12/21/2024 1:22 PM [facility] Hemoglobin 13.7 13.5 - 17.5 g/dL LAB HEMETOLOGY METHOD 12/21/2024 1:22 PM [facility] Hematocrit 43.7 42.0 - 54.0 % LAB HEMETOLOGY METHOD 12/21/2024 1:22 PM [facility] MCV 94.8 79.0 - 98.0 FL LAB HEMETOLOGY METHOD 12/21/2024 1:22 PM [facility] MCH 29.7 27.0 - 32.0 pcg LAB HEMETOLOGY METHOD 12/21/2024 1:22 PM [facility] MCHC 31.4(L) 32.0 - 37.0 g/dL LAB HEMETOLOGY METHOD 12/21/2024 1:22 PM [facility] RDW 15.6(H) 11.0 - 15.0 % LAB HEMETOLOGY METHOD 12/21/2024 1:22 PM EST [facility] Platelets 144 130 - 400 K/mcL LAB HEMETOLOGY METHOD 12/21/2024 1:22 PM EST [facility] MPV 12.2(H) 7.0 - 11.0 FL LAB HEMETOLOGY METHOD 12/21/2024 1:22 PM EST [facility] NRBC 0.0 <1.0 % LAB HEMETOLOGY METHOD 12/21/2024 1:22 PM EST [facility] NRBC Absolute 0.00 <0.10 K/mcL LAB HEMETOLOGY METHOD 12/21/2024 1:22 PM [facility] Blood Venous blood specimen / Unknown Venipuncture / Unknown 12/21/2024 8:52 AM EST 12/21/2024 11:28 AM EST us Marianna Ellison MD LAB BLOOD ORDERABLES Fin al Result [facility] [address] [place] [address], documented in this encounter Visit Diagnoses Diagnosis Weakness Other malaise and fatigue Type 2 diabetes mellitus without complications (CMS/HCC V24, CMS/HCC V28) documented in this encounter Care Teams Syrup Maker Cook Relationship Specialty Start Date End Date Brennan rPince MD [address] Tigre Diaz [place] PCP - General Internal Medicine 05/23/25 documented as of this encounter
--- OUTSIDE RECORDS SUMMARY | 2025-08-02 15:00 | XMS_ITS | Clinical Summary ---
Author Organization [facility] [employer] [facility] Address [address] [facility] [place] [address] Phone Care Team Providers Care Viscosity Worker Name Role Phone Brennan Prince MD Primary Care Provider [phone] Allergies No known active allergies Medications empagliflozin [...] for Wheezing or Shortness of Breath. Active dulaglutide (Trulicity) 4.5 mg/0.5 mL pen [...] ns:Hypertension , unspecified type,Coronary artery disease involving cocopah heart without angina pectoris, unspecified vessel or lesion type Take 1 tablet (30 mg total) by mouth 1 (one) time each day. Do not crush or chew. Do not take with 60 mg IMDUR tablets. 30 each 2 4 Active rivaroxaban (Xarelto) 15 mg tablet Take 1 tablet (15 mg total) by mouth 1 (one) time each day with dinner. Take with food. 90 tablet 2 5 Active Additional Information Patient not taking.Reported on 05/23/2025 carvediloL (COREG) 6.25 mg tablet Take 1 tablet (6.25 mg total) by mouth 2 (two) times a day with meals. 180 tablet 2 5 Active digoxin (LANOXIN) 125 mcg (0.125 mg) tablet Take 1 tablet (125 mcg total) by mouth every other day. 45 tablet 2 5 Active rivaroxaban (XARELTO) 20 mg tablet Take 1 tablet (20 mg total) by mouth 1 (one) time each day with dinner. Take with food. 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 He will be seeing his firer kiln next week. 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 I've asked the patient to call if they develop worsening symptoms of heart failure such as increased shortness of breath, new or worsening cough, increased swelling in the legs or ankles, or weight gain of more than 2 pounds in one day or 4 pounds in one week. Sinus bradycardia 01/21/2022 Overview (08/15/2024): [place] [facility] [place] Obesity 01/21/2022 Overview (08/15/2024): Class 1/ Class 2 COPD exacerbation (CMS/HCC V24, CMS/HCC V28) Overview (08/15/2024): [place] [facility] [place] Coronary artery disease 06/30/2021 Overview (08/15/2024): Last Assessment & Plan: Patient has history of coronary artery disease status post NC in 2015 where he was successfully treated with a [...] with routine medical care. Assessment & Plan (05/23/2025 12:14 PM EDT): History of significant arthroscopic coronary disease status post drug-eluting stent to the LAD on medical management with no symptoms. Risk factor modification in place. Assessment & Plan (10/04/2024 3:47 PM EST): Patient has history of coronary artery disease status post NC in 2015 where he was successfully treated with a [...] with 60 mg IMDUR tablets. Atrial fibrillation (CMS/HCC V24, CMS/HCC V28) 0 06/26/2021 Overview (08/15/2024): Last Assessment [...] update a digoxin level. Assessment & Plan (05/23/2025 12:14 PM EDT): History of chronic atrial fibrillation rate controlled. On Xarelto with no bleeding issues. Digoxin in place for rate control. Assessment & Plan (10/04/2024 3:47 PM EST): [...] Imdur to 30 mg daily. As the [place] home delivery takes several weeks will send [...] mg IMDUR tablets. Type 2 diabetes mellitus with obesity 06/26/2021 Overview (08/01/2025): 08/01/25 Regulatory IMO Update Hyperlipidemia 06/26/2021 Overview (08/15/2024): Last Assessment & Plan: Goal LDL cholesterol is less than 70. Continue statin prescribed. Assessment & Plan (10/04/2024 3:47 PM EST): Continue on statin as prescribed. No recent lipid panel to review, will update. Encounters Date Type Department Care Team Description 05/23/2025 10:20 AM EDT Office Visit [facility] [address] [facility] [address] [place] [address] Sajan Noriega MD Coronary artery disease involving cocopah heart without angina pectoris, unspecified vessel or lesion type (Primary Dx); Atrial fibrillation, unspecified type (CMS/HCC V24, CMS/HCC V28) from Last 3 Months Immunizations Immunization Administration Dates Next Due Pneumococcal polysaccharide 23 valent (Pneumovax 23) 2yo and older 12/10/2003 Surgical History Surgery Date Site/Laterality Comments OTHER SURGICAL HISTORY 09/05/2019 PROCEDURE: HISTORY OTHER; COMMENT: Left transmetatarsal amputation OTHER SURGICAL HISTORY 09/30/2016 PROCEDURE: HISTORY OTHER; COMMENT: Incision and drainage, upper ar, or elbow area; deep abcess or hematoma COLONOSCOPY 09/02/2016 PROCEDURE: HISTORICAL COLONOSCOPY OTHER SURGICAL HISTORY 04/13/2013 PROCEDURE: [place] COLONOSCOPY FLEXIBLE WITH DECOMPRESSION ANGIOPLASTY PROCEDURE: HISTORICAL ANGIOPLASTY W/STENT Medical History Medical History Date Comments Acute kidney injury ([facility] V24) DX:Acute kidney injury ([facility]) COPD (chronic obstructive pu lmonary disease) ([facility] V24, [facility] V28) DX:COPD (chronic o bstructive pulmonary disease) ([facility]) Non-compliance DX:Non-complianc e Obesity DX:Obesity; COMM ENT: Class 1/ Class 2 / class 3 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 ([facility] V24, [facility] V28) DX:Persistent microalbuminur ia associated with type II diabetes mellitus ([facility]) Pyoderma DX:Pyoderma Spells of speech arrest DX:Spell s of speech arrest Status post transmetatarsal amputation of left foot ([facility] V24, [facility] V28) DX:Status post transmetatarsal amputation of left foot ([facility]) Tremor DX:Tremor Tubular adenoma of colon DX:Tubu lar adenoma of colon Chronic ischemic heart disease D X:Chronic ischemic heart disease Hyperlipidemia DX:Hyperlipidemi a Essential hypertension DX:Essent ial hypertension Diabetes mellitus type 2 in obese DX:Diabetes mellitus type 2 in obese COPD exacerbation ([facility] V 24, [facility] V28) DX:COPD exacerbation ([facility]); COMMENT: D/C'd from [facility] 01/05/22 Class 2 obesity DX:Class 2 obesi [...] 100/55 10/04/2024 1:17 PM EST Pulse 83 05/23/2025 10:40 AM EDT Temperature - - Respiratory Rate - - Oxygen Saturation 95% 05/23/2025 10:40 AM EDT Inhaled Oxygen Concentration - - Weight 93.4 kg (206 lb) 05/23/2025 10:40 AM EDT Height 182.9 cm (6') 05/23/2025 10:40 AM EDT Body Mass Index 27.94 05/23/2025 10:40 AM EDT Plan of Treatment Upcoming Encounters Date Type Department Care Team (Late st Contact Info) Description 11/16/2025 9:50 AM EST Office Visit [facility] [address] [place] [address] Sajan Noriega MD [address] [place] [address] [address] [place] [address] Health Maintenance Due Date Last Done Comments Diabetes: Annual Foot Exam 1955 Diabetes: Annual Retina Eye Exam 1955 Cholesterol Screening (Lipid Panel) 10/10/2022 12/11/2003 Falls Risk Assessment 10/10/2022 Medicare Annual Wellness Visit 10/10/2022 Social Influencers of Health Screening 10/10/2022 Diabetes: Annual Urine Albumin-Creatinine Ratio (uACR) 10/17/2022 12/11/2003 Depression Screening 11/01/2024 Diabetes: Blood Sugar Control Test (HGBA1C) 05/09/2025 11/09/2024, 12/11/2003 Influenza Vaccine (#1) 2025 , 07/16/2023, 07/16/2023, Additional history exists COVID-19 Vaccine ( season) 2025 02/28/2025, 08/28/2021, 12/26/2020, Additional history exists Diabetes: Annual GFR (Glomerular Filtration Rate) 01/15/2026 01/15/2025, 01/11/2025, 01/08/2025, Additional history exists Hypertension/CHF/CAD Annual BMP Blood Test 01/15/2026 01/15/2025, 01/11/2025, 01/08/2025, Additional history exists DTaP,Tdap,and Td Vaccines (7 - Td or Tdap) 05/10/2026 05/10/2016, 05/10/2016, 05/29/2014, Additional history exists Pneumococcal Vaccine: 50+ Years Completed 08/12/2021, 05/01/2015, 08/01/2012, Additional history exists Zoster Vaccines Completed [...] Weakness Type 2 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 Potassium 4.1 3.5 - 5.5 mmol/L LAB CHEMISTRY METHOD 01/15/2025 11:25 AM [facility] Chloride 103 96 - 110 mmol/L LAB CHEMISTRY METHOD 01/15/2025 11:25 AM [facility] CO2 30 21 - 32 mmol/L LAB CHEMISTRY METHOD 01/15/2025 11:25 AM [facility] Anion Gap 6 3 - 11 LAB CHEMISTRY METHOD 01/15/2025 11:25 AM [facility] Glucose 155(H) 70 - 100 mg/dL LAB CHEMISTRY METHOD 01/15/2025 11:25 AM [facility] BUN 30(H) 5 - 25 mg/dL LAB CHEMISTRY METHOD 01/15/2025 11:25 AM [facility] Creatinine 1.61(H) 0.70 - 1.30 mg/dL LAB CHEMISTRY METHOD 01/15/2025 11:25 AM [facility] eGFR 43(L) >=60 mL/min/1. 73m2 LAB CHEMISTRY METHOD 01/15/2025 11:25 AM [facility] Comment:Calculation based on the Chronic Kidney Disease Epidemiology Collaboration (CKD-EPI) equation refit without adjustment for race. BUN/Creatinine Ratio 18.6 LAB CHEMISTRY METHOD 01/15/2025 11:25 AM [facility] Calcium 8.9 8.5 - 10.5 mg/dL LAB CHEMISTRY METHOD 01/15/2025 11:25 AM [facility] Blood Venous blood specimen / Unknown Venipuncture / Unknown 01/15/2025 5:51 AM EDT 01/15/2025 9:57 AM EDT us Marianna Ellison MD LAB BLOOD ORDERABLES Fin al Result [facility] [address] [place] [address], * (ABNORMAL) Hemoglobin A1c (11/09/2024 7:22 AM EST) Hemoglobin A1C 8.0(H) <6.5 % LAB CHEMISTRY METHOD 11/09/2024 9:[address] [facility] Mean Bld Glu Estim. 183 mg/dL LAB CHEMISTRY METHOD 11/09/2024 9:[address] [facility] Blood Venous blood specimen / Unknown Venipuncture / Unknown 11/09/2024 7:22 AM EST 11/09/2024 11:58 AM EST Marianna Ellison MD LAB BLOOD ORDERABLES Fin al Result [facility] [address] [place] [address], * HM Urine Albumin Creatinine Ratio (12/11/2003) Pathologist [facility] Urine Albumin Creatinine Ratio abstracted Historical Provider HEALTH MAINTENANCE Final Result * (ABNORMAL) Lipid panel (12/11/2003) Pathologist [facility] LDL/HDL Ratio 5 <=5 Triglycerides 293(A) <=150 mg/dL Cholesterol 204(A) <=200 mg/dL HDL 41 >=40 mg/dL LDL Cholesterol 105(A) <=100 mg/dL Blood Venous blood specimen / Unknown Historical Provider LAB BLOOD ORDERABLES Natalie l Result from Last 3 Months or Most Recently Relevant to Health Maintenance Insurance [employer] [place] [employer] Care Teams Viscosity Worker Relationship Specialty Start Date End Date Brennan Prince MD [address] [facility] [place] PCP - General Internal Medicine 05/23/25
--- OUTSIDE RECORDS SUMMARY | 2025-08-02 15:00 | XMS_ITS | Encounter Summary ---
Author Organization [facility] Address [address] [place] [address] Care Team Providers Care Pharmacy Specialist Name Role Phone Brennan Prince MD Primary Care Provider [phone] Encounter Details Date Type Department Care Team (Late st Contact Info) Description 12/29/2024 Lab Requisition [facility] - Main Lab [address] [facility] [place] [address] Marianna Ellison MD [address] [facility] [address] [place] [address] Weakness; Type 2 diabetes mellitus without complications [...] Description 11/16/2025 9:50 AM EST Office Visit [facility] [address] [facility] [facility] [address] [place] [address] Sajan Noriega MD Medical [place] [address] [place] [phone] documented as of this encounter Procedures Procedure Name Priority Date/Time Associated Diagnosis Comments COMPLETE BLOOD COUNT Routine 01/01/2025 7:49 AM EST Weakness Type 2 diabetes mellitus without complications (CMS/HCC) BASIC METABOLIC PANEL Routine 01/01/2025 7:49 AM EST Weakness Type 2 diabetes mellitus without complications ([facility]/HCC) documented in this encounter Results * (ABNORMAL) Basic metabolic panel (01/01/2025 7:49 AM EST) Sodium 139 133 - 145 mmol/L LAB CHEMISTRY METHOD 01/01/2025 10:40 AM [facility] Potassium 4.4 3.5 - 5.5 mmol/L LAB CHEMISTRY METHOD 01/01/2025 10:40 AM [facility] Chloride 107 96 - 110 mmol/L LAB CHEMISTRY METHOD 01/01/2025 10:40 AM [facility] CO2 24 21 - 32 mmol/L LAB CHEMISTRY METHOD 01/01/2025 10:40 AM [facility] Anion Gap 8 3 - 11 LAB CHEMISTRY METHOD 01/01/2025 10:40 AM [facility] Glucose 128(H) 70 - 100 mg/dL LAB CHEMISTRY METHOD 01/01/2025 10:40 AM [facility] BUN 24 5 - 25 mg/dL LAB CHEMISTRY METHOD 01/01/2025 10:40 AM [facility] Creatinine 1.22 0.70 - 1.30 mg/dL LAB CHEMISTRY METHOD 01/01/2025 10:40 AM [facility] eGFR 60 >=60 mL/min/1. 73m2 LAB CHEMISTRY METHOD 01/01/2025 10:40 AM [facility] Comment:Calculation based on the Chronic Kidney Disease Epidemiology Collaboration (CKD-EPI) equation refit without adjustment for race. BUN/Creatinine Ratio 19.7 LAB CHEMISTRY METHOD 01/01/2025 10:40 AM [facility] Calcium 8.7 8.5 - 10.5 mg/dL LAB CHEMISTRY METHOD 01/01/2025 10:40 AM [facility] Blood Venous blood specimen / Unknown Venipuncture / Unknown 01/01/2025 7:49 AM EST 01/01/2025 9:58 AM EST us Marianna Ellison MD LAB BLOOD ORDERABLES Fin al Result [facility] [address] [place] [address], * (ABNORMAL) Complete blood count (01/01/2025 7:49 AM EST) WBC 7.2 4.8 - 10.8 K/mcL LAB HEMETOLOGY METHOD 01/01/2025 10:30 AM [facility] RBC 4.60 4.50 - 5.50 M/mcL LAB HEMETOLOGY METHOD 01/01/2025 10:30 AM [facility] Hemoglobin 13.5 13.5 - 17.5 g/dL LAB HEMETOLOGY METHOD 01/01/2025 10:30 AM [facility] Hematocrit 42.8 42.0 - 54.0 % LAB HEMETOLOGY METHOD 01/01/2025 10:30 AM [facility] MCV 93.0 79.0 - 98.0 FL LAB HEMETOLOGY METHOD 01/01/2025 10:30 AM [facility] MCH 29.3 27.0 - 32.0 pcg LAB HEMETOLOGY METHOD 01/01/2025 10:30 AM [facility] MCHC 31.5(L) 32.0 - 37.0 g/dL LAB HEMETOLOGY METHOD 01/01/2025 10:30 AM [facility] RDW 15.1(H) 11.0 - 15.0 % LAB HEMETOLOGY METHOD 01/01/2025 10:30 AM EST [facility] Platelets 230 130 - 400 K/mcL LAB HEMETOLOGY METHOD 01/01/2025 10:30 AM EST [facility] MPV 11.5(H) 7.0 - 11.0 FL LAB HEMETOLOGY METHOD 01/01/2025 10:30 AM EST [facility] NRBC 0.0 <1.0 % LAB HEMETOLOGY METHOD 01/01/2025 10:30 AM EST [facility] NRBC Absolute 0.00 <0.10 K/mcL LAB HEMETOLOGY METHOD 01/01/2025 10:30 AM [facility] Blood Venous blood specimen / Unknown Venipuncture / Unknown 01/01/2025 7:49 AM EST 01/01/2025 9:58 AM EST us Marianna Ellison MD LAB BLOOD ORDERABLES Fin al Result [facility] [address] [place] [address], documented in this encounter Visit Diagnoses Diagnosis Weakness Other malaise and fatigue Type 2 diabetes mellitus without complications (CMS/HCC V24, CMS/HCC V28) documented in this encounter Care Teams Pharmacy Specialist Relationship Specialty Start Date End Date Brennan Prince MD [address] [facility] [place] PCP - General Internal Medicine 05/23/25 documented as of this encounter
--- OUTSIDE RECORDS SUMMARY | 2025-08-02 15:00 | XMS_ITS | Encounter Summary ---
Author Organization [facility] Address [address] [place] [address] Care Team Providers Care Application Support Manager Name Role Phone Brennan Prince MD Primary Care Provider [phone] Encounter Details Date Type Department Care Team (Late st Contact Info) Description 12/06/2024 Lab Requisition [facility] - Main Lab [address] [facility] [place] [address] Marianna Ellison MD [address] [facility] [address] [place] [address] Type 2 diabetes mellitus without complications (CMS/HCC [...] Description 11/16/2025 9:50 AM EST Office Visit [facility] [address] [facility] [facility] [address] [place] [address] Sajan Noriega MD Medical [address] [address] [place] [phone] documented as of this encounter Procedures Procedure Name Priority Date/Time Associated Diagnosis Comments COMPLETE BLOOD COUNT Routine 12/07/2024 6:39 AM EST Type 2 diabetes mellitus without complications ([facility]/HCC) Weakness BASIC METABOLIC PANEL Routine 12/07/2024 6:39 AM EST Type 2 diabetes mellitus without complications ([facility]/HCC) Weakness documented in this encounter Results [...] [facility] Comment:Calculation based on the Chronic Kidney Disease Epidemiology Collaboration (CKD-EPI) equation refit without adjustment for race. BUN/Creatinine Ratio 21.2 LAB [...] al Result [facility] [address] [place] [address], * (ABNORMAL) Complete blood count (12/07/2024 6:39 AM EST) WBC 7.1 4.8 - 10.8 K/mcL LAB HEMETOLOGY METHOD 12/07/2024 11:[address] [facility] RBC 4.50 4.50 - 5.50 M/[facility] LAB HEMETOLOGY METHOD 12/07/2024 11:40 AM [...] 11:40 AM EST [facility] Blood Venous blood specimen / Unknown Venipuncture / Unknown 12/07/2024 6:39 AM EST 12/07/2024 10:43 AM EST us Marianna Ellison MD LAB BLOOD ORDERABLES Fin al Result [facility] [address] [place] [address], documented in this encounter Visit Diagnoses Diagnosis Type 2 diabetes mellitus without complications (CMS/HCC V24, CMS/HCC V28) Weakness Other malaise and fatigue documented in this encounter Care Teams Application Support Manager Relationship Specialty Start Date End Date Brennan Prince MD [address] [facility] [place] PCP - General Internal Medicine 05/23/25 documented as of this encounter
--- OUTSIDE RECORDS SUMMARY | 2025-08-02 15:00 | XMS_ITS | Encounter Summary ---
Author Organization [facility] Address [address] [place] [address] Care Team Providers Care Ore Digger Name Role Phone Brennan Prince MD Primary Care Provider [phone] Encounter Details Date Type Department Care Team (Late st Contact Info) Description 12/22/2024 Lab Requisition [facility] - Main Lab [address] [facility] [place] [address] Marianna Ellison MD [address] [facility] [address] [place] [address] Weakness; Type 2 diabetes mellitus without complications [...] [facility] [address] [place] [address] Sajan Noriega MD [address] [place] [address] [address] [place] [phone] documented as of this encounter Visit Diagnoses Diagnosis Weakness Other malaise and fatigue Type 2 diabetes mellitus without complications (CMS/HCC V24, CMS/HCC V28) documented in this encounter Care Teams Ore Digger Relationship Specialty Start Date End Date Brennan Prince MD [address] [facility] [place] PCP - General Internal Medicine 05/23/25 documented as of this encounter
--- OUTSIDE RECORDS SUMMARY | 2025-08-02 15:00 | XMS_ITS | Encounter Summary ---
Author Organization [facility] Address [address] [place] [address] Care Team Providers Care Ski Patroller Name Role Phone Brennan Prince MD Primary Care Provider [phone] Encounter Details Date Type Department Care Team (Late st Contact Info) Description 12/13/2024 Lab Requisition [facility] - Main Lab [address] [facility] [place] [address] Marianna Ellison MD [address] [facility] 1 [place] [address] Weakness; Type 2 diabetes mellitus without complications [...] 11/16/2025 9:50 AM EST Office Visit [facility] [address] [place] [address] Sajan Noriega MD Medical [address] [place] [phone] documented as of this encounter Procedures Procedure Name Priority Date/Time Associated Diagnosis Comments COMPLETE BLOOD COUNT Routine 12/14/2024 5:50 AM EST Weakness Type 2 diabetes mellitus without complications (CMS/HCC) BASIC METABOLIC PANEL Routine 12/14/2024 5:50 AM EST Weakness Type 2 diabetes mellitus without complications ([facility]/HCC) documented in this encounter Results * (ABNORMAL) Basic metabolic panel (12/14/2024 5:50 AM EST) Sodium 142 133 - 145 mmol/L LAB CHEMISTRY METHOD 12/14/2024 10:11 AM [facility] Potassium 4.2 3.5 - 5.5 mmol/L LAB CHEMISTRY METHOD 12/14/2024 10:11 AM [facility] Chloride 106 96 - 110 mmol/L LAB CHEMISTRY METHOD 12/14/2024 10:11 AM [facility] CO2 31 21 - 32 mmol/L LAB CHEMISTRY METHOD 12/14/2024 10:11 AM [facility] Anion Gap 5 3 - 11 LAB CHEMISTRY METHOD 12/14/2024 10:11 AM [facility] Glucose 133(H) 70 - 100 mg/dL LAB CHEMISTRY METHOD 12/14/2024 10:11 AM [facility] BUN 37(H) 5 - 25 mg/dL LAB CHEMISTRY METHOD 12/14/2024 10:11 AM [facility] Creatinine 1.42(H) 0.70 - 1.30 mg/dL LAB CHEMISTRY METHOD 12/14/2024 10:11 AM [facility] eGFR 50(L) >=60 mL/min/1. 73m2 LAB CHEMISTRY METHOD 12/14/2024 10:11 AM [facility] Comment:Calculation based on the Chronic Kidney Disease Epidemiology Collaboration (CKD-EPI) equation refit without adjustment for race. BUN/Creatinine Ratio 26.1 LAB CHEMISTRY METHOD 12/14/2024 10:11 AM [facility] Calcium 8.8 8.5 - 10.5 mg/dL LAB CHEMISTRY METHOD 12/14/2024 10:11 AM [facility] Blood Venous blood specimen / Unknown Venipuncture / Unknown 12/14/2024 5:50 AM EST 12/14/2024 9:17 AM EST us Marianna Ellison MD LAB BLOOD ORDERABLES Fin al Result [facility] [address] [place] [address], * (ABNORMAL) Complete blood count (12/14/2024 5:50 AM EST) WBC 6.3 4.8 - 10.8 K/mcL LAB HEMETOLOGY METHOD 12/14/2024 9:43 AM [facility] RBC 4.40(L) 4.50 - 5.50 M/[facility] LAB HEMETOLOGY METHOD 12/14/2024 9:43 AM [facility] Hemoglobin 13.0(L) 13.5 - 17.5 g/dL LAB HEMETOLOGY METHOD 12/14/2024 9:43 AM [facility] Hematocrit 41.7(L) 42.0 - 54.0 % LAB HEMETOLOGY METHOD 12/14/2024 9:43 AM [facility] MCV 95.0 79.0 - 98.0 FL LAB HEMETOLOGY METHOD 12/14/2024 9:43 AM [facility] MCH 29.6 27.0 - 32.0 pcg LAB HEMETOLOGY METHOD 12/14/2024 9:43 AM [facility] MCHC 31.2(L) 32.0 - 37.0 g/dL LAB HEMETOLOGY METHOD 12/14/2024 9:43 AM [facility] RDW 15.4(H) 11.0 - 15.0 % [...] K/mcL LAB HEMETOLOGY METHOD 12/14/2024 9:43 AM [facility] Blood Venous blood specimen / Unknown Venipuncture / Unknown 12/14/2024 5:50 AM EST 12/14/2024 9:16 AM EST us Marianna Ellison MD LAB BLOOD ORDERABLES Fin al Result [facility] [address] [place] [address], documented in this encounter Visit Diagnoses Diagnosis Weakness Other malaise and fatigue Type 2 diabetes mellitus without complications (CMS/HCC V24, CMS/HCC V28) documented in this encounter Care Teams Ski Patroller Relationship Specialty Start Date End Date Brennan [facility] [facility] - General Internal Medicine 05/23/25 documented as of this encounter
--- OUTSIDE RECORDS SUMMARY | 2025-08-02 15:01 | XMS_ITS | Encounter Summary ---
Author Organization [facility] Address [address] [place] [address] Care Team Providers Care Button Reclaimer Name Role Phone Brennan Prince MD Primary Care Provider Encounter Details Date Type Department Care Team (Late st Contact Info) Description 01/03/2025 Lab Requisition [facility] - Main Lab [address] [facility] [place] [address] Marianna Ellison MD [address] [facility] 1 [place] [address] Weakness; Type 2 diabetes mellitus without complications [...] Description 11/16/2025 9:50 AM EST Office Visit [facility] [address] [place] [address] Sajan Noriega MD Medical [address] [address] [place] [phone] documented as of this encounter Procedures Procedure Name Priority Date/Time Associated Diagnosis Comments COMPLETE BLOOD COUNT Routine 01/04/2025 6:05 AM EST Weakness Type 2 diabetes mellitus without complications (CMS/HCC) BASIC METABOLIC PANEL Routine 01/04/2025 6:05 AM EST Weakness Type 2 diabetes mellitus without complications ([facility]/HCC) documented in this encounter Results * (ABNORMAL) Basic metabolic panel (01/04/2025 6:05 AM EST) Sodium 138 133 - 145 mmol/L LAB CHEMISTRY METHOD 01/04/2025 11:08 AM [facility] Potassium 3.7 3.5 - 5.5 mmol/L LAB CHEMISTRY METHOD 01/04/2025 11:08 AM [facility] Chloride 102 96 - 110 mmol/L LAB CHEMISTRY METHOD 01/04/2025 11:08 AM [facility] CO2 27 21 - 32 mmol/L LAB CHEMISTRY METHOD 01/04/2025 11:08 AM [facility] Anion Gap 9 3 - 11 LAB CHEMISTRY METHOD 01/04/2025 11:08 AM [facility] Glucose 149(H) 70 - 100 mg/dL LAB CHEMISTRY METHOD 01/04/2025 11:08 AM [facility] BUN 30(H) 5 - 25 mg/dL LAB CHEMISTRY METHOD 01/04/2025 11:08 AM [facility] Creatinine 1.51(H) 0.70 - 1.30 mg/dL LAB CHEMISTRY METHOD 01/04/2025 11:08 AM [facility] eGFR 47(L) >=60 mL/min/1. 73m2 LAB CHEMISTRY METHOD 01/04/2025 11:08 AM [facility] Comment:Calculation based on the Chronic Kidney Disease Epidemiology Collaboration (CKD-EPI) equation refit without adjustment for race. BUN/Creatinine Ratio 19.9 LAB CHEMISTRY METHOD 01/04/2025 11:08 AM [facility] Calcium 8.6 8.5 - 10.5 mg/dL LAB CHEMISTRY METHOD 01/04/2025 11:08 AM [facility] Blood Venous blood specimen / Unknown Venipuncture / Unknown 01/04/2025 6:05 AM EST 01/04/2025 10:02 AM EST us Marianna Ellison MD LAB BLOOD ORDERABLES Fin al Result [facility] [address] [place] [address], * (ABNORMAL) Complete blood count (01/04/2025 6:05 AM EST) WBC 8.7 4.8 - 10.8 K/mcL LAB HEMETOLOGY METHOD 01/04/2025 10:32 AM [facility] RBC 4.30(L) 4.50 - 5.50 M/mcL LAB HEMETOLOGY METHOD 01/04/2025 10:32 AM [facility] Hemoglobin 12.7(L) 13.5 - 17.5 g/dL LAB HEMETOLOGY METHOD 01/04/2025 10:32 AM [facility] Hematocrit 39.4(L) 42.0 - 54.0 % LAB HEMETOLOGY METHOD 01/04/2025 10:32 AM [facility] MCV 92.5 79.0 - 98.0 FL LAB HEMETOLOGY METHOD 01/04/2025 10:32 AM [facility] MCH 29.8 27.0 - 32.0 pcg LAB HEMETOLOGY METHOD 01/04/2025 10:32 AM [facility] MCHC 32.2 32.0 - 37.0 g/dL LAB HEMETOLOGY METHOD 01/04/2025 10:32 AM [facility] RDW 15.1(H) 11.0 - 15.0 % LAB HEMETOLOGY METHOD 01/04/2025 10:32 AM EST [facility] Platelets 240 130 - 400 K/mcL LAB HEMETOLOGY METHOD 01/04/2025 10:32 AM EST [facility] MPV 11.5(H) 7.0 - 11.0 FL LAB HEMETOLOGY METHOD 01/04/2025 10:32 AM EST [facility] NRBC 0.0 <1.0 % LAB HEMETOLOGY METHOD 01/04/2025 10:32 AM EST [facility] NRBC Absolute 0.00 <0.10 K/mcL LAB HEMETOLOGY METHOD 01/04/2025 10:32 AM [facility] Blood Venous blood specimen / Unknown Venipuncture / Unknown 01/04/2025 6:05 AM EST 01/04/2025 10:01 AM EST us Marianna Ellison MD LAB BLOOD ORDERABLES Fin al Result [facility] [address] [place] [address], documented in this encounter Visit Diagnoses Diagnosis Weakness Other malaise and fatigue Type 2 diabetes mellitus without complications (CMS/HCC V24, CMS/HCC V28) documented in this encounter Care Teams Button Reclaimer Relationship Specialty Start Date End Date Brennan Prince MD [address] [facility] BREE Diaz PCP - General Internal Medicine 05/23/25 documented as of this encounter
--- OUTSIDE RECORDS SUMMARY | 2025-08-02 15:01 | XMS_ITS | Encounter Summary ---
Author Organization [facility] Address [address] [place] [address] Care Team Providers Care Wire Technician Name Role Phone Brennan Prince MD Primary Care Provider [phone] Encounter Details Date Type Department Care Team (Late st Contact Info) Description 01/10/2025 Lab Requisition [facility] - Main Lab [address] [facility] [place] [address] Marianna Ellison MD [address] [facility] 1 [place] [address] Weakness; Type 2 diabetes mellitus without complications [...] Description 11/16/2025 9:50 AM EST Office Visit [facility] [address] [place] [address] Sajan Noriega MD Medical [address] [place] [phone] documented as of this encounter Procedures Procedure Name Priority Date/Time Associated Diagnosis Comments COMPLETE BLOOD COUNT Routine 01/11/2025 5:27 AM EDT Weakness Type 2 diabetes mellitus without complications ([facility]/HCC) BASIC METABOLIC PANEL Routine 01/11/2025 5:27 AM EDT Weakness Type 2 diabetes mellitus without complications ([facility]/HCC) documented in this encounter Results * (ABNORMAL) Basic metabolic panel (01/11/2025 5:27 AM EDT) Pathologist [facility] Sodium 138 133 - 145 mmol/L LAB CHEMISTRY METHOD 01/11/2025 10:55 AM [facility] Potassium 4.2 3.5 - 5.5 mmol/L LAB CHEMISTRY METHOD 01/11/2025 10:55 AM [facility] Chloride 103 96 - 110 mmol/L LAB CHEMISTRY METHOD 01/11/2025 10:55 AM [facility] CO2 29 21 - 32 mmol/L LAB CHEMISTRY METHOD 01/11/2025 10:55 AM [facility] LAB Anion Gap 6 3 - 11 LAB CHEMISTRY METHOD 01/11/2025 10:55 AM [facility] LAB Glucose 122(H) 70 - 100 mg/dL LAB CHEMISTRY METHOD 01/11/2025 10:55 AM [facility] LAB BUN 26(H) 5 - 25 mg/dL LAB CHEMISTRY METHOD 01/11/2025 10:55 AM [facility] LAB Creatinine 1.38(H) 0.70 - 1.30 mg/dL LAB CHEMISTRY METHOD 01/11/2025 10:55 AM [facility] LAB eGFR 52(L) >=60 mL/min/1. 73m2 LAB CHEMISTRY METHOD 01/11/2025 10:55 AM [facility] LAB Comment:Calculation based on the Chronic Kidney Disease Epidemiology Collaboration (CKD-EPI) equation refit without adjustment for race. BUN/Creatinine Ratio 18.8 LAB CHEMISTRY METHOD 01/11/2025 10:55 AM EDT [facility] LAB Calcium 8.9 8.5 - 10.5 mg/dL LAB CHEMISTRY METHOD 01/11/2025 10:55 AM T [facility] LAB Blood Venous blood specimen / Unknown 01/11/2025 5:27 AM EDT 01/11/2025 9:48 AM EDT us Marianna Ellison MD LAB BLOOD ORDERABLES Fin al Result [facility] LAB [address] [place] [address], [place] [phone] * (ABNORMAL) Complete blood count (01/11/2025 5:27 AM EDT) WBC 6.8 4.8 - 10.8 K/mcL LAB HEMETOLOGY METHOD 01/11/2025 10:35 AM [facility] LAB RBC 4.70 4.50 - 5.50 M/mcL LAB HEMETOLOGY METHOD 01/11/2025 10:35 AM [facility] Hemoglobin 13.9 13.5 - 17.5 g/dL LAB HEMETOLOGY METHOD 01/11/2025 10:35 AM [facility] LAB Hematocrit 43.9 42.0 - 54.0 % LAB HEMETOLOGY METHOD 01/11/2025 10:35 AM [facility] LAB MCV 93.0 79.0 - 98.0 FL LAB HEMETOLOGY METHOD 01/11/2025 10:35 AM [facility] LAB MCH 29.4 27.0 - 32.0 pcg LAB HEMETOLOGY METHOD 01/11/2025 10:35 AM [facility] MCHC 31.7(L) 32.0 - 37.0 g/dL LAB HEMETOLOGY METHOD 01/11/2025 10:35 AM [facility] LAB RDW 15.4(H) 11.0 - 15.0 % LAB HEMETOLOGY METHOD 01/11/2025 10:35 AM EDT [facility] LAB Platelets 199 130 - 400 K/mcL LAB HEMETOLOGY METHOD 01/11/2025 10:35 AM EDT [facility] LAB MPV 11.7(H) 7.0 - 11.0 FL LAB HEMETOLOGY METHOD 01/11/2025 10:35 AM EDT [facility] NRBC 0.0 <1.0 % LAB HEMETOLOGY METHOD 01/11/2025 10:35 AM EDT [facility] NRBC Absolute 0.00 <0.10 K/mcL LAB HEMETOLOGY METHOD 01/11/2025 10:35 AM EDT [facility] LAB Blood Venous blood specimen / Unknown Venipuncture / Unknown 01/11/2025 5:27 AM EDT 01/11/2025 9:48 AM EDT us Marianna Ellison MD LAB BLOOD ORDERABLES Fin al Result [facility] LAB [address] [place] [address], documented in this encounter Visit Diagnoses Diagnosis Weakness Other malaise and fatigue Type 2 diabetes mellitus without complications (CMS/HCC V24, CMS/HCC V28) documented in this encounter Care Teams Wire Technician Relationship Specialty Start Date End Date Brennan Prince MD [address] [facility] [place] PCP - General Internal Medicine 05/23/25 documented as of this encounter
--- OUTSIDE RECORDS SUMMARY | 2025-08-02 15:01 | XMS_ITS | Encounter Summary ---
Author Organization [facility] Address [address] [place] [address] Care Team Providers Care Gas Station Operator Name Role Phone Brennan Prince MD Primary Care Provider [phone] Encounter Details Date Type Department Care Team (Late st Contact Info) Description 11/15/2024 Lab Requisition [facility] - Main Lab [address] [facility] [place] [address] Marianna Ellison MD [address] [facility] 1 [place] [address] Type 2 diabetes mellitus without complications (CMS/HCC [...] Description 11/16/2025 9:50 AM EST Office Visit [facility] - [facility] [address] [place] [address] Sajan Noriega MD [address] [place] [address] [address] [place] [phone] documented as of this encounter Visit Diagnoses Diagnosis Type 2 diabetes mellitus without complications (CMS/HCC V24, CMS/[facility] V28) Weakness Other malaise and fatigue documented in this encounter Care Teams Gas Station Operator Relationship Specialty Start Date End Date Brennan Prince MD [address] [facility] BREE Diaz PCP - General Internal Medicine 05/23/25 documented as of this encounter
--- OUTSIDE RECORDS SUMMARY | 2025-08-02 15:01 | XMS_ITS | Encounter Summary ---
Author Organization [facility] Address [address] [place] [address] Care Team Providers Care J2Ee Application Developer Name Role Phone Brennan Prinec MD Primary Care Provider [phone] Encounter Details Date Type Department Care Team (Late st Contact Info) Description 11/29/2024 Lab Requisition [facility] - Main Lab [address] [facility] [place] [address] Marianna Ellison MD [address] [facility] 1 [place] [address] Type 2 diabetes mellitus without complications (CMS/HCC [...] Description 11/16/2025 9:50 AM EST Office Visit [facility] [address] [place] [address] Sajan Noriega MD Medical [place] [address] [place] [phone] documented as of this encounter Procedures Procedure Name Priority Date/Time Associated Diagnosis Comments COMPLETE BLOOD COUNT Routine 11/30/2024 6:28 AM EST Type 2 diabetes mellitus without complications ([facility]/HCC) Weakness BASIC METABOLIC PANEL Routine 11/30/2024 6:28 AM EST Type 2 diabetes mellitus without complications ([facility]/HCC) Weakness documented in this encounter Results * (ABNORMAL) Basic metabolic panel (11/30/2024 6:28 AM EST) Sodium 141 133 - 145 mmol/L LAB CHEMISTRY METHOD 11/30/2024 10:31 AM [facility] Potassium 4.1 3.5 - 5.5 mmol/L LAB CHEMISTRY METHOD 11/30/2024 10:31 AM [facility] Chloride 105 96 - 110 mmol/L LAB CHEMISTRY METHOD 11/30/2024 10:31 AM [facility] CO2 30 21 - 32 mmol/L LAB CHEMISTRY METHOD 11/30/2024 10:31 AM [facility] Anion Gap 6 3 - 11 LAB CHEMISTRY METHOD 11/30/2024 10:31 AM [facility] LAB Glucose 126(H) 70 - 100 mg/dL LAB CHEMISTRY METHOD 11/30/2024 10:31 AM [facility] BUN 34(H) 5 - 25 mg/dL LAB CHEMISTRY METHOD 11/30/2024 10:31 AM [facility] Creatinine 1.36(H) 0.70 - 1.30 mg/dL LAB CHEMISTRY METHOD 11/30/2024 10:31 AM [facility] LAB eGFR 53(L) >=60 mL/min/1. 73m2 LAB CHEMISTRY METHOD 11/30/2024 10:31 AM [facility] LAB Comment:Calculation based on the Chronic Kidney Disease Epidemiology Collaboration (CKD-EPI) equation refit without adjustment for race. BUN/Creatinine Ratio 25.0 LAB CHEMISTRY METHOD 11/30/2024 10:31 AM [facility] Calcium 9.0 8.5 - 10.5 mg/dL LAB CHEMISTRY METHOD 11/30/2024 10:31 AM [facility] Blood Venous blood specimen / Unknown Venipuncture / Unknown 11/30/2024 6:28 AM EST 11/30/2024 9:39 AM EST us Marianna Ellison MD LAB BLOOD ORDERABLES Fin al Result [facility] [address] [place] [address], * (ABNORMAL) Complete blood count (11/30/2024 6:28 AM EST) WBC 8.7 4.8 - 10.8 K/mcL LAB HEMETOLOGY METHOD 11/30/2024 10:20 AM [facility] RBC 4.30(L) 4.50 - 5.50 M/mcL LAB HEMETOLOGY METHOD 11/30/2024 10:20 AM [facility] Hemoglobin 12.7(L) 13.5 - 17.5 g/dL LAB HEMETOLOGY METHOD 11/30/2024 10:20 AM [facility] LAB Hematocrit 40.1(L) 42.0 - 54.0 % LAB HEMETOLOGY METHOD 11/30/2024 10:20 AM [facility] LAB MCV 93.0 79.0 - 98.0 FL LAB HEMETOLOGY METHOD 11/30/2024 10:20 AM [facility] MCH 29.5 27.0 - 32.0 pcg LAB HEMETOLOGY METHOD 11/30/2024 10:20 AM [facility] MCHC 31.7(L) 32.0 - 37.0 g/dL LAB HEMETOLOGY METHOD 11/30/2024 10:20 AM [facility] RDW 14.3 11.0 - 15.0 % LAB HEMETOLOGY METHOD 11/30/2024 10:20 AM EST [facility] Platelets 257 130 - 400 K/mcL LAB HEMETOLOGY METHOD 11/30/2024 10:20 AM EST [facility] MPV 11.4(H) 7.0 - 11.0 FL LAB HEMETOLOGY METHOD 11/30/2024 10:20 AM EST [facility] NRBC 0.0 <1.0 % LAB HEMETOLOGY METHOD 11/30/2024 10:20 AM EST [facility] NRBC Absolute 0.00 <0.10 K/mcL LAB HEMETOLOGY METHOD 11/30/2024 10:20 AM EST [facility] Blood Venous blood specimen / Unknown Venipuncture / Unknown 11/30/2024 6:28 AM EST 11/30/2024 9:39 AM EST us Marianna Ellison MD LAB BLOOD ORDERABLES Fin al Result [facility] [address] [place] [address], documented in this encounter Visit Diagnoses Diagnosis Type 2 diabetes mellitus without complications (CMS/HCC V24, CMS/HCC V28) Weakness Other malaise and fatigue documented in this encounter Care Teams J2Ee Application Developer Relationship Specialty Start Date End Date Brennan Prince MD [facility] BREE Diaz PCP - General Internal Medicine 05/23/25 documented as of this encounter
--- OUTSIDE RECORDS SUMMARY | 2025-08-02 15:01 | XMS_ITS | Encounter Summary ---
Author Organization [facility] Address [address] [place] [address] Care Team Providers Care Drill Hand Name Role Phone Brennan Prince MD Primary Care Provider [phone] Encounter Details Date Type Department Care Team (Late st Contact Info) Description 12/03/[address] [facility] - Main Lab 299 [facility] [place] [address] Marianna Ellison MD [address] [facility] 1 [place] [address] Type 2 diabetes mellitus without complications (CMS/HCC [...] Description 11/16/2025 9:50 AM EST Office Visit [facility] - [facility] [address] [place] [address] Sajan Noriega MD Medical [place] [address] [place] [phone] documented as of this encounter Procedures Procedure Name Priority Date/Time Associated Diagnosis Comments COMPLETE BLOOD COUNT Routine 12/04/2024 7:18 AM EST Type 2 diabetes mellitus without complications ([facility]/HCC) Weakness BASIC METABOLIC PANEL Routine 12/04/2024 7:18 AM EST Type 2 diabetes mellitus without complications ([facility]/HCC) Weakness documented in this encounter Results * (ABNORMAL) Basic metabolic panel (12/04/2024 7:18 AM EST) Sodium 140 133 - 145 mmol/L LAB CHEMISTRY METHOD 12/04/2024 1:13 PM [facility] Potassium 4.2 3.5 - 5.5 mmol/L LAB CHEMISTRY METHOD 12/04/2024 1:13 PM [facility] Chloride 104 96 - 110 mmol/L LAB CHEMISTRY METHOD 12/04/2024 1:13 PM [facility] CO2 28 21 - 32 mmol/L LAB CHEMISTRY METHOD 12/04/2024 1:13 PM [facility] Anion Gap 8 3 - 11 LAB CHEMISTRY METHOD 12/04/2024 1:13 PM [facility] Glucose 120(H) 70 - 100 mg/dL LAB CHEMISTRY METHOD 12/04/2024 1:13 PM [facility] BUN 30(H) 5 - 25 mg/dL LAB CHEMISTRY METHOD 12/04/2024 1:13 PM [facility] Creatinine 1.43(H) 0.70 - 1.30 mg/dL LAB CHEMISTRY METHOD 12/04/2024 1:13 PM [facility] eGFR 50(L) >=60 mL/min/1. 73m2 LAB CHEMISTRY METHOD 12/04/2024 1:13 PM [facility] Comment:Calculation based on the Chronic Kidney Disease Epidemiology Collaboration (CKD-EPI) equation refit without adjustment for race. BUN/Creatinine Ratio 21.0 LAB CHEMISTRY METHOD 12/04/2024 1:13 PM [facility] Calcium 8.8 8.5 - 10.5 mg/dL LAB CHEMISTRY METHOD 12/04/2024 1:13 PM [facility] Blood Venous blood specimen / Unknown Venipuncture / Unknown 12/04/2024 7:18 AM EST 12/04/2024 11:06 AM EST us Marianna Ellison MD LAB BLOOD ORDERABLES Fin al Result [facility] [address] [place] [address], * (ABNORMAL) Complete blood count (12/04/2024 7:18 AM EST) WBC 7.2 4.8 - 10.8 K/mcL LAB HEMETOLOGY METHOD 12/04/2024 11:41 AM [facility] RBC 4.40(L) 4.50 - 5.50 M/[facility] LAB HEMETOLOGY METHOD 12/04/2024 11:41 AM [facility] Hemoglobin 12.6(L) 13.5 - 17.5 g/dL LAB HEMETOLOGY METHOD 12/04/2024 11:41 AM [facility] Hematocrit 40.5(L) 42.0 - 54.0 % LAB HEMETOLOGY METHOD 12/04/2024 11:41 AM [facility] MCV 93.1 79.0 - 98.0 FL LAB HEMETOLOGY METHOD 12/04/2024 11:41 AM [facility] MCH 29.0 27.0 - 32.0 pcg LAB HEMETOLOGY METHOD 12/04/2024 11:41 AM [facility] MCHC 31.1(L) 32.0 - 37.0 g/dL LAB HEMETOLOGY METHOD 12/04/2024 11:41 AM [facility] RDW 14.6 11.0 - 15.0 % LAB HEMETOLOGY METHOD 12/04/2024 11:41 AM EST [facility] Platelets 220 130 - 400 K/mcL LAB HEMETOLOGY METHOD 12/04/2024 11:41 AM EST [facility] MPV 11.5(H) 7.0 - 11.0 FL LAB HEMETOLOGY METHOD 12/04/2024 11:41 AM EST [facility] NRBC 0.0 <1.0 % LAB HEMETOLOGY METHOD 12/04/2024 11:41 AM EST [facility] NRBC Absolute 0.00 <0.10 K/mcL LAB HEMETOLOGY METHOD 12/04/2024 11:41 AM [facility] Blood Venous blood specimen / Unknown Venipuncture / Unknown 12/04/2024 7:18 AM EST 12/04/2024 11:06 AM EST us Marianna Ellison MD LAB BLOOD ORDERABLES Fin al Result [facility] [address] [place] [address], documented in this encounter Visit Diagnoses Diagnosis Type 2 diabetes mellitus without complications (CMS/HCC V24, CMS/HCC V28) Weakness Other malaise and fatigue documented in this encounter Care Teams Drill Hand Relationship Specialty Start Date End Date Brennan Prince MD [address] [facility] BREE Diaz PCP - General Internal Medicine 05/23/25 documented as of this encounter
--- OUTSIDE RECORDS SUMMARY | 2025-08-02 15:01 | XMS_ITS | Encounter Summary ---
Author Organization [facility] Address [address] [place] [address] Care Team Providers Care Tinsmith Apprentice Name Role Phone Brennan Prince MD Primary Care Provider [phone] Encounter Details Date Type Department Care Team (Late st Contact Info) Description 12/27/2024 Lab Requisition [facility] - Main Lab 299 [facility] [place] [address] Marianna Ellison MD [address] [facility] 1 [place] [address] Unspecified atrial fibrillation (CMS/HCC V24, CMS/HCC V28); [...] 11/16/2025 9:50 AM EST Office Visit [facility] Medical Center [address] [place] [address] Sajan Noriega MD [address] [place] [address] [address] [place] [address] documented as of this encounter Procedures Procedure [...] Results * Folate (12/27/2024 6:07 AM EST) Pathologist [facility] Folate 9.6 2.8 - 17.0 ng/ml LAB CHEMISTRY METHOD 12/27/2024 11:54 AM EST [facility] Blood Venous blood specimen / Unknown Venipuncture / Unknown 12/27/2024 6:07 AM EST 12/27/2024 9:43 AM EST us Marianna Ellison MD LAB BLOOD ORDERABLES Fin al Result [facility] [address] [place] [address], * Vitamin B12 (12/27/2024 6:07 AM EST) Pathologist [facility] Vitamin B-12 367 250 - 900 pcg/mL LAB CHEMISTRY METHOD 12/27/2024 11:54 AM EST [facility] Blood Venous blood specimen / Unknown Venipuncture / Unknown 12/27/2024 6:07 AM EST 12/27/2024 9:43 AM EST Marianna Ellison MD LAB BLOOD ORDERABLES Fin al Result Performing Organization Address [facility]/ZIP Co de Phone Number [facility] [address] [place] [address], [place] [phone] * Thyroid stimulating hormone with reflex to free t4 and free t3 (12/27/2024 6:07 AM EST) Pathologist [facility] TSH 1.07 0.40 - 4.00 mcIU/mL LAB CHEMISTRY METHOD 12/27/2024 11:37 AM [facility] Blood Venous blood specimen / Unknown Venipuncture / Unknown 12/27/2024 6:07 AM EST 12/27/2024 9:43 AM EST Marianna Ellison MD LAB BLOOD ORDERABLES Fin al Result Performing Organization Address [facility]/ZIP Co de Phone Number [facility] [address] [place] [address], [place] [phone] * (ABNORMAL) Comprehensive metabolic panel (12/27/2024 6:07 AM EST) Pathologist [facility] Sodium 141 133 - 145 mmol/L LAB CHEMISTRY METHOD 12/27/2024 11:55 AM [facility] Potassium 4.0 3.5 - 5.5 mmol/L LAB CHEMISTRY METHOD 12/27/2024 11:55 AM [facility] Chloride 107 96 - 110 mmol/L LAB CHEMISTRY METHOD 12/27/2024 11:55 AM [facility] CO2 24 21 - 32 mmol/L LAB CHEMISTRY METHOD 12/27/2024 11:55 AM [facility] Anion Gap 10 3 - 11 LAB CHEMISTRY METHOD 12/27/2024 11:55 AM [facility] Glucose 138(H) 70 - 100 mg/dL LAB CHEMISTRY METHOD 12/27/2024 11:55 AM [facility] BUN 19 5 - 25 mg/dL LAB CHEMISTRY METHOD 12/27/2024 11:55 AM [facility] Creatinine 1.12 0.70 - 1.30 mg/dL LAB CHEMISTRY METHOD 12/27/2024 11:55 AM [facility] eGFR 67 >=60 mL/min/1. 73m2 LAB CHEMISTRY METHOD 12/27/2024 11:55 AM [facility] Comment:Calculation based on the Chronic Kidney Disease Epidemiology Collaboration (CKD-EPI) equation refit without adjustment for race. BUN/Creatinine Ratio 17.0 LAB CHEMISTRY METHOD 12/27/2024 11:55 AM [facility] Calcium 8.7 8.5 - 10.5 mg/dL LAB CHEMISTRY METHOD 12/27/2024 11:55 AM [facility] AST (SGOT) 23 10 - 42 unit/L LAB CHEMISTRY METHOD 12/27/2024 11:55 AM [facility] ALT (SGPT) 24 10 - 60 unit/L LAB CHEMISTRY METHOD 12/27/2024 11:55 AM [facility] Alkaline Phosphatase 133(H) 42 - 121 unit/L LAB CHEMISTRY METHOD 12/27/2024 11:55 AM [facility] Total Protein 6.3 6.0 - 8.0 g/dL LAB CHEMISTRY METHOD 12/27/2024 11:55 AM [facility] Albumin 3.0(L) 3.2 - 5.0 g/dL LAB CHEMISTRY METHOD 12/27/2024 11:55 AM [facility] Total Bilirubin 0.6 0.0 - 1.4 mg/dL LAB CHEMISTRY METHOD 12/27/2024 11:55 AM [facility] Blood Venous blood specimen / Unknown Venipuncture / Unknown 12/27/2024 6:07 AM EST 12/27/2024 9:43 AM EST us Marianna Ellison MD LAB BLOOD ORDERABLES Fin al Result [facility] [address] [place] [address], * (ABNORMAL) Complete blood count (12/27/2024 6:07 AM EST) [facility] WBC 5.4 4.8 - 10.8 K/mcL LAB HEMETOLOGY METHOD 12/27/2024 10:59 AM [facility] RBC 4.50 4.50 - 5.50 M/mcL LAB HEMETOLOGY METHOD 12/27/2024 10:59 AM [facility] Hemoglobin 13.1(L) 13.5 - 17.5 g/dL LAB HEMETOLOGY METHOD 12/27/2024 10:59 AM [facility] Hematocrit 41.3(L) 42.0 - 54.0 % LAB HEMETOLOGY METHOD 12/27/2024 10:59 AM [facility] MCV 92.0 79.0 - 98.0 FL LAB HEMETOLOGY METHOD 12/27/2024 10:59 AM [facility] MCH 29.2 27.0 - 32.0 pcg LAB HEMETOLOGY METHOD 12/27/2024 10:59 AM [facility] MCHC 31.7(L) 32.0 - 37.0 g/dL LAB HEMETOLOGY METHOD 12/27/2024 10:59 AM [facility] RDW 15.2(H) 11.0 - 15.0 % LAB HEMETOLOGY METHOD 12/27/2024 10:59 AM [facility] Platelets 158 130 - 400 K/mcL LAB HEMETOLOGY METHOD 12/27/2024 10:59 AM EST [facility] MPV 11.9(H) 7.0 - 11.0 FL LAB HEMETOLOGY METHOD 12/27/2024 10:59 AM EST [facility] NRBC 0.0 <1.0 % LAB HEMETOLOG METHOD 12/27/2024 10:59 AM EST [facility] NRBC Absolute 0.00 <0.10 K/mcL LAB HEMETOLOGY METHOD 12/27/2024 10:59 AM EST [facility] Blood Venous blood specimen / Unknown Venipuncture / Unknown 12/27/2024 6:07 AM EST 12/27/2024 9:43 AM EST us Marianna Ellison MD LAB BLOOD ORDERABLES Fin al Result [facility] [address] [place] [address], documented in this encounter Visit Diagnoses Diagnosis Unspecified atrial fibrillation (CMS/HCC V24, CMS/HCC V28) Type 2 diabetes mellitus without complications (CMS/HCC V24, CMS/HCC V28) documented in this encounter Care Teams Tinsmith Apprentice Relationship Specialty Start Date End Date Brennan Prince MD [address] [place], [place] PCP - General Internal Medicine 05/23/25 documented as of this encounter
--- OUTSIDE RECORDS SUMMARY | 2025-08-02 15:01 | XMS_ITS | Encounter Summary ---
Author Organization [facility] Address [address] [place] [address] Care Team Providers Care Seal Skinner Name Role Phone Brennan Prince MD Primary Care Provider [phone] Encounter Details Date Type Department Care Team (Late st Contact Info) Description 11/19/2024 Lab Requisition [facility] - Main Lab 299 [facility] [place] [address] Marianna Ellison MD [address] [facility] 1 [place] [address] Type 2 diabetes mellitus without complications (CMS/HCC [...] Description 11/16/2025 9:50 AM EST Office Visit [facility] - [facility] [address] [place] [address] Sajan Noriega MD [address] [place] [address] Dr [address] [place] [phone] documented as of this encounter Visit Diagnoses Diagnosis Type 2 diabetes mellitus without complications (CMS/HCC V24, CMS/[facility] V28) Weakness Other malaise and fatigue documented in this encounter Care Teams Seal Skinner Relationship Specialty Start Date End Date Brennan Prince MD [address] [facility] BREE Diaz PCP - General Internal Medicine 05/23/25 documented as of this encounter
--- OUTSIDE RECORDS SUMMARY | 2025-08-02 15:01 | XMS_ITS | Encounter Summary ---
Author Organization [facility] Address [address] [place] [address] Care Team Providers Care Carpenter Assistant Installer Name Role Phone Brennan Prince MD Primary Care Provider [phone] Encounter Details Date Type Department Care Team (Late st Contact Info) Description 11/09/2024 Lab Requisition [facility] - Main Lab 299 [facility] [place] [address] Marianna Ellison MD [address] [facility] 1 [place] [address] Weakness; Type 2 diabetes mellitus without complications [...] Description 11/16/2025 9:50 AM EST Office Visit [facility] - [facility] [address] [place] [address] Sajan Noriega MD Medical [place] [address] [place] [phone] documented as of this encounter Procedures Procedure [...] LAB CHEMISTRY METHOD 11/10/2024 9:30 AM EST [facility] Blood Venous blood specimen / Unknown Venipuncture / Unknown 11/09/2024 7:22 AM EST 11/09/2024 11:58 AM EST us Marianna Ellison MD LAB BLOOD ORDERABLES Fin al Result [facility] [address] [place] [address], * Folate (11/09/2024 7:22 AM EST) Folate 11.6 2.8 - 17.0 ng/ml LAB CHEMISTRY METHOD 11/09/2024 3:43 PM EST [facility] Blood Venous blood specimen / Unknown Venipuncture / Unknown 11/09/2024 7:22 AM EST 11/09/2024 11:58 AM EST Marianna Ellison MD LAB BLOOD ORDERABLES Fin al Result [facility] [address] [place] [address], [place] [phone] * Vitamin B12 (11/09/2024 7:22 AM EST) Pathologist [facility] Vitamin B-12 785 250 - 900 pcg/mL LAB CHEMISTRY METHOD 11/09/2024 3:43 PM EST [facility] Blood Venous blood specimen / Unknown Venipuncture / Unknown 11/09/2024 7:22 AM EST 11/09/2024 11:58 AM EST Marianna Ellison MD LAB BLOOD ORDERABLES Fin al Result Performing Organization Address [facility]/ZIP Co de Phone Number [facility] [address] [place] [address], [place] [phone] * (ABNORMAL) Hemoglobin A1c (11/09/2024 7:22 AM EST) [facility] Hemoglobin A1C 8.0(H) <6.5 % LAB CHEMISTRY METHOD 11/09/2024 9:56 PM EST [facility] Mean Bld Glu Estim. 183 mg/dL LAB CHEMISTRY METHOD 11/09/2024 9:56 PM EST [facility] Blood Venous blood specimen / Unknown Venipuncture / Unknown 11/09/2024 7:22 AM EST 11/09/2024 11:58 AM EST Marianna Ellison MD LAB BLOOD ORDERABLES Fin al Result Performing Organization Address City/[facility]/ZIP Co de Phone Number [facility] [address] [place] [address], [place] [phone] * (ABNORMAL) Comprehensive metabolic panel (11/09/2024 7:22 AM EST) Sodium 135 133 - 145 mmol/L LAB CHEMISTRY METHOD 11/09/2024 3:[address] [facility] Potassium 3.8 3.5 - 5.5 mmol/L LAB CHEMISTRY METHOD 11/09/2024 3:[address] [facility] Chloride 98 96 - 110 mmol/L LAB CHEMISTRY METHOD 11/09/2024 3:[address] [facility] CO2 27 21 - 32 mmol/L LAB CHEMISTRY METHOD 11/09/2024 3:[address] [facility] Anion Gap 10 3 - 11 LAB CHEMISTRY METHOD 11/09/2024 3:[address] [facility] Glucose 127(H) 70 - 100 mg/dL LAB CHEMISTRY METHOD 11/09/2024 3:[address] [facility] BUN 35(H) 5 - 25 mg/dL LAB CHEMISTRY METHOD 11/09/2024 3:[address] [facility] Creatinine 1.48(H) 0.70 - 1.30 mg/dL LAB CHEMISTRY METHOD 11/09/2024 3:[address] [facility] eGFR 48(L) >=60 mL/min/1. 73m2 LAB CHEMISTRY METHOD 11/09/2024 3:[address] [facility] Comment:Calculation based on the Chronic Kidney Disease Epidemiology Collaboration (CKD-EPI) equation refit without adjustment for race. BUN/Creatinine Ratio 23.6 LAB CHEMISTRY METHOD 11/09/2024 3:[address] [facility] Calcium 9.0 8.5 - 10.5 mg/dL LAB CHEMISTRY METHOD 11/09/2024 3:[address] [facility] AST (SGOT) 18 10 - 42 unit/L LAB CHEMISTRY METHOD 11/09/2024 3:[address] [facility] ALT (SGPT) 17 10 - 60 unit/L LAB CHEMISTRY METHOD 11/09/2024 3:[address] [facility] Alkaline Phosphatase 125(H) 42 - 121 unit/L LAB CHEMISTRY METHOD 11/09/2024 3:[address] [facility] Total Protein 6.5 6.0 - 8.0 g/dL LAB CHEMISTRY METHOD 11/09/2024 3:[address] [facility] Albumin 2.9(L) 3.2 - 5.0 g/dL LAB CHEMISTRY METHOD 11/09/2024 3:[address] [facility] Total Bilirubin 0.8 0.0 - 1.4 mg/dL LAB CHEMISTRY METHOD 11/09/2024 3:[address] [facility] Blood Venous blood specimen / Unknown Venipuncture / Unknown 11/09/2024 7:22 AM EST 11/09/2024 11:58 AM EST us Marianna Ellison MD LAB BLOOD ORDERABLES Fin al Result [facility] [address] [place] [address], * (ABNORMAL) Complete blood count (11/09/2024 7:22 AM EST) WBC 10.9(H) 4.8 - 10.8 K/mcL LAB HEMETOLOGY METHOD 11/09/2024 1:[address] [facility] RBC 4.90 4.50 - 5.50 M/mcL LAB HEMETOLOGY METHOD 11/09/2024 1:[address] [facility] Hemoglobin 14.3 13.5 - 17.5 g/dL LAB HEMETOLOGY METHOD 11/09/2024 1:[address] [facility] Hematocrit 44.9 42.0 - 54.0 % LAB HEMETOLOGY METHOD 11/09/2024 1:[address] [facility] MCV 92.4 79.0 - 98.0 FL LAB HEMETOLOGY METHOD 11/09/2024 1:[address] [facility] MCH 29.4 27.0 - 32.0 pcg LAB HEMETOLOGY METHOD 11/09/2024 1:[address] [facility] MCHC 31.8(L) 32.0 - 37.0 g/dL LAB HEMETOLOGY METHOD 11/09/2024 1:[address] [facility] RDW 13.5 11.0 - 15.0 % LAB HEMETOLOGY METHOD 11/09/2024 1:[address] [facility] Platelets 272 130 - 400 K/mcL LAB HEMETOLOGY METHOD 11/09/2024 1:[address] [facility] MPV 11.2(H) 7.0 - 11.0 FL LAB HEMETOLOGY METHOD 11/09/2024 1:[address] [facility] NRBC 0.0 <1.0 % LAB HEMETOLOGY METHOD 11/09/2024 1:[address] [facility] NRBC Absolute 0.00 <0.10 K/mcL LAB HEMETOLOGY METHOD 11/09/2024 1:[address] [facility] Blood Venous blood specimen / Unknown Venipuncture / Unknown 11/09/2024 7:22 AM EST 11/09/2024 11:58 AM EST us Marianna Ellison MD LAB BLOOD ORDERABLES Fin al Result [facility] [address] [place] [address], documented in this encounter Visit Diagnoses Diagnosis Weakness Other malaise and fatigue Type 2 diabetes mellitus without complications (CMS/HCC V24, CMS/HCC V28) documented in this encounter Care Teams Carpenter Assistant Installer Relationship Specialty Start Date End Date Brennan Prince MD [address] [facility] BREE Diaz PCP - General Internal Medicine 05/23/25 documented as of this encounter
--- OUTSIDE RECORDS SUMMARY | 2025-08-02 15:01 | XMS_ITS | Encounter Summary ---
Author Organization [facility] Address [address] [place] [address] Care Team Providers Care Manager Mass Name Role Phone Brennan Prince MD Primary Care Provider [phone] Encounter Details Date Type Department Care Team (Late st Contact Info) Description 11/11/2024 Lab Requisition [facility] - Main Lab 299 [facility] [place] [address] Marianna Ellison MD [address] [facility] [place] [address] Type 2 diabetes mellitus without complications (CMS/HCC [...] Description 11/16/2025 9:50 AM EST Office Visit [facility] [address] [place] [address] Sajan Noriega MD Medical [place] [address] [place] [phone] documented as of this encounter Procedures Procedure Name Priority Date/Time Associated Diagnosis Comments COMPLETE BLOOD COUNT Routine 11/13/2024 6:40 AM EST Type 2 diabetes mellitus without complications ([facility]/HCC) Weakness BASIC METABOLIC PANEL Routine 11/13/2024 6:40 AM EST Type 2 diabetes mellitus without complications ([facility]/HCC) Weakness documented in this encounter Results * (ABNORMAL) Basic metabolic panel (11/13/2024 6:40 AM EST) Sodium 137 133 - 145 mmol/L LAB CHEMISTRY METHOD 11/13/2024 11:32 AM [facility] Potassium 4.2 3.5 - 5.5 mmol/L LAB CHEMISTRY METHOD 11/13/2024 11:32 AM [facility] Chloride 100 96 - 110 mmol/L LAB CHEMISTRY METHOD 11/13/2024 11:32 AM [facility] CO2 28 21 - 32 mmol/L LAB CHEMISTRY METHOD 11/13/2024 11:32 AM [facility] Anion Gap 9 3 - 11 LAB CHEMISTRY METHOD 11/13/2024 11:32 AM [facility] Glucose 127(H) 70 - 100 mg/dL LAB CHEMISTRY METHOD 11/13/2024 11:32 AM [facility] BUN 40(H) 5 - 25 mg/dL LAB CHEMISTRY METHOD 11/13/2024 11:32 AM [facility] Creatinine 1.77(H) 0.70 - 1.30 mg/dL LAB CHEMISTRY METHOD 11/13/2024 11:32 AM [facility] eGFR 39(L) >=60 mL/min/1. 73m2 LAB CHEMISTRY METHOD 11/13/2024 11:32 AM [facility] Comment:Calculation based on the Chronic Kidney Disease Epidemiology Collaboration (CKD-EPI) equation refit without adjustment for race. BUN/Creatinine Ratio 22.6 LAB CHEMISTRY METHOD 11/13/2024 11:32 AM [facility] Calcium 8.9 8.5 - 10.5 mg/dL LAB CHEMISTRY METHOD 11/13/2024 11:32 AM [facility] Blood Venous blood specimen / Unknown Venipuncture / Unknown 11/13/2024 6:40 AM EST 11/13/2024 9:55 AM EST us Marianna Ellison MD LAB BLOOD ORDERABLES Fin al Result [facility] [address] [place] [address], * (ABNORMAL) Complete blood count (11/13/2024 6:40 AM EST) WBC 9.9 4.8 - 10.8 K/mcL LAB HEMETOLOGY METHOD 11/13/2024 10:33 AM [facility] RBC 4.80 4.50 - 5.50 M/mcL LAB HEMETOLOGY METHOD 11/13/2024 10:33 AM [facility] Hemoglobin 14.4 13.5 - 17.5 g/dL LAB HEMETOLOGY METHOD 11/13/2024 10:33 AM [facility] Hematocrit 45.4 42.0 - 54.0 % LAB HEMETOLOGY METHOD 11/13/2024 10:33 AM [facility] MCV 93.8 79.0 - 98.0 FL LAB HEMETOLOGY METHOD 11/13/2024 10:33 AM [facility] MCH 29.8 27.0 - 32.0 pcg LAB HEMETOLOGY METHOD 11/13/2024 10:33 AM [facility] MCHC 31.7(L) 32.0 - 37.0 g/dL LAB HEMETOLOGY METHOD 11/13/2024 10:33 AM [facility] RDW 13.5 11.0 - 15.0 % LAB HEMETOLOGY METHOD 11/13/2024 10:33 AM EST [facility] Platelets 273 130 - 400 K/mcL LAB HEMETOLOGY METHOD 11/13/2024 10:33 AM EST [facility] MPV 11.4(H) 7.0 - 11.0 FL LAB HEMETOLOGY METHOD 11/13/2024 10:33 AM EST [facility] NRBC 0.0 <1.0 % LAB HEMETOLOGY METHOD 11/13/2024 10:33 AM EST [facility] NRBC Absolute 0.00 <0.10 K/mcL LAB HEMETOLOGY METHOD 11/13/2024 10:33 AM [facility] Blood Venous blood specimen / Unknown Venipuncture / Unknown 11/13/2024 6:40 AM EST 11/13/2024 9:54 AM EST us Marianna Ellison MD LAB BLOOD ORDERABLES Fin al Result [facility] [address] [place] [address], documented in this encounter Visit Diagnoses Diagnosis Type 2 diabetes mellitus without complications (CMS/HCC V24, CMS/HCC V28) Weakness Other malaise and fatigue documented in this encounter Care Teams Manager Mass Relationship Specialty Start Date End Date Brennan Prince MD [facility] BREE Diaz PCP - General Internal Medicine 05/23/25 documented as of this encounter
--- OUTSIDE RECORDS SUMMARY | 2025-08-02 15:01 | XMS_ITS | Encounter Summary ---
Author Organization [facility] Address [address] [place] [address] Care Team Providers Care Coupon Manifest Clerk Name Role Phone Brennan Prince MD Primary Care Provider [phone] Encounter Details Date Type Department Care Team (Late st Contact Info) Description 01/05/2025 Lab Requisition [facility] - Main Lab 299 [facility] [place] [address] Marianna Ellison MD [address] [facility] 1 [place] [address] Weakness; Type 2 diabetes mellitus without complications [...] Description 11/16/2025 9:50 AM EST Office Visit [facility] [address] [place] [address] Sajan Noriega MD Medical [place] [address] [place] [phone] documented as of this encounter Procedures Procedure Name Priority Date/Time Associated Diagnosis Comments COMPLETE BLOOD COUNT Routine 01/08/2025 8:29 AM EDT Weakness Type 2 diabetes mellitus without complications ([facility]/HCC) BASIC METABOLIC PANEL Routine 01/08/2025 8:29 AM EDT Weakness Type 2 diabetes mellitus without complications ([facility]/HCC) documented in this encounter Results * (ABNORMAL) Basic metabolic panel (01/08/2025 8:29 AM EDT) Pathologist [facility] Sodium 137 133 - 145 mmol/L LAB CHEMISTRY METHOD 01/08/2025 10:49 AM [facility] Potassium 4.1 3.5 - 5.5 mmol/L LAB CHEMISTRY METHOD 01/08/2025 10:49 AM [facility] Chloride 102 96 - 110 mmol/L LAB CHEMISTRY METHOD 01/08/2025 10:49 AM [facility] CO2 29 21 - 32 mmol/L LAB CHEMISTRY METHOD 01/08/2025 10:49 AM [facility] Anion Gap 6 3 - 11 LAB CHEMISTRY METHOD 01/08/2025 10:49 AM [facility] Glucose 138(H) 70 - 100 mg/dL LAB CHEMISTRY METHOD 01/08/2025 10:49 AM [facility] BUN 32(H) 5 - 25 mg/dL LAB CHEMISTRY METHOD 01/08/2025 10:49 AM [facility] Creatinine 1.60(H) 0.70 - 1.30 mg/dL LAB CHEMISTRY METHOD 01/08/2025 10:49 AM [facility] eGFR 44(L) >=60 mL/min/1. 73m2 LAB CHEMISTRY METHOD 01/08/2025 10:49 AM [facility] Comment:Calculation based on the Chronic Kidney Disease Epidemiology Collaboration (CKD-EPI) equation refit without adjustment for race. BUN/Creatinine Ratio 20.0 LAB CHEMISTRY METHOD 01/08/2025 10:49 AM EDT [facility] Calcium 9.1 8.5 - 10.5 mg/dL LAB CHEMISTRY METHOD 01/08/2025 10:49 AM T [facility] Blood Venous blood specimen / Unknown Venipuncture / Unknown 01/08/2025 8:29 AM EDT 01/08/2025 9:38 AM EDT us Marianna Ellison MD LAB BLOOD ORDERABLES Fin al Result [facility] [address] [place] [address], * (ABNORMAL) Complete blood count (01/08/2025 8:29 AM EDT) WBC 7.6 4.8 - 10.8 K/mcL LAB HEMETOLOGY METHOD 01/08/2025 9:53 AM [facility] RBC 4.50 4.50 - 5.50 M/mcL LAB HEMETOLOGY METHOD 01/08/2025 9:53 AM [facility] Hemoglobin 13.2(L) 13.5 - 17.5 g/dL LAB HEMETOLOGY METHOD 01/08/2025 9:53 AM [facility] Hematocrit 42.2 42.0 - 54.0 % LAB HEMETOLOGY METHOD 01/08/2025 9:53 AM [facility] MCV 94.0 79.0 - 98.0 FL LAB HEMETOLOGY METHOD 01/08/2025 9:53 AM [facility] MCH 29.4 27.0 - 32.0 pcg LAB HEMETOLOGY METHOD 01/08/2025 9:53 AM [facility] MCHC 31.3(L) 32.0 - 37.0 g/dL LAB HEMETOLOGY METHOD 01/08/2025 9:53 AM [facility] RDW 15.2(H) 11.0 - 15.0 % LAB HEMETOLOGY METHOD 01/08/2025 9:53 AM EDT [facility] Platelets 226 130 - 400 K/mcL LAB HEMETOLOGY METHOD 01/08/2025 9:53 AM EDT [facility] MPV 11.5(H) 7.0 - 11.0 FL LAB HEMETOLOGY METHOD 01/08/2025 9:53 AM EDT [facility] NRBC 0.0 <1.0 % LAB HEMETOLOGY METHOD 01/08/2025 9:53 AM EDT [facility] NRBC Absolute 0.00 <0.10 K/mcL LAB HEMETOLOGY METHOD 01/08/2025 9:53 AM EDT [facility] Blood Venous blood specimen / Unknown Venipuncture / Unknown 01/08/2025 8:29 AM EDT 01/08/2025 9:38 AM EDT us Marianna Ellison MD LAB BLOOD ORDERABLES Fin al Result [facility] [address] [place] [address], documented in this encounter Visit Diagnoses Diagnosis Weakness Other malaise and fatigue Type 2 diabetes mellitus without complications (CMS/HCC V24, CMS/HCC V28) documented in this encounter Care Teams Coupon Manifest Clerk Relationship Specialty Start Date End Date Brennan Prince MD [address] [place], [place] PCP - General Internal Medicine 05/23/25 documented as of this encounter
--- OUTSIDE RECORDS SUMMARY | 2025-08-02 15:01 | XMS_ITS | Encounter Summary ---
Author Organization [facility] Address [address] [place] [address] Care Team Providers Care Shellfish Sorter Name Role Phone Brennan Prince MD Primary Care Provider [phone] Encounter Details Date Type Department Care Team (Late st Contact Info) Description 11/22/[address] [facility] - Main Lab 299 [facility] [place] [address] Marianna Ellison MD [address] [address] Pain, unspecified; Type 2 diabetes mellitus without [...] Description 11/16/2025 9:50 AM EST Office Visit [facility] [address] [place] [address] Sajan Noriega MD [address] [place] [address] [address] [place] [address] documented as of this encounter [...] mmol/L LAB CHEMISTRY METHOD 11/23/2024 12:19 PM [facility] Potassium 4.8 3.5 - 5.5 mmol/L LAB CHEMISTRY METHOD 11/23/2024 12:19 PM [facility] Chloride 101 96 - 110 mmol/L LAB CHEMISTRY METHOD 11/23/2024 12:19 PM [facility] CO2 30 21 - 32 mmol/L LAB CHEMISTRY METHOD 11/23/2024 12:19 PM [facility] Anion Gap 5 3 - 11 LAB CHEMISTRY METHOD 11/23/2024 12:19 PM [facility] Glucose 132(H) 70 - 100 mg/dL LAB CHEMISTRY METHOD 11/23/2024 12:19 PM [facility] BUN 29(H) 5 - 25 mg/dL LAB CHEMISTRY METHOD 11/23/2024 12:19 PM [facility] Creatinine 1.19 0.70 - 1.30 mg/dL LAB CHEMISTRY METHOD 11/23/2024 12:19 PM [facility] eGFR 62 >=60 mL/min/1. 73m2 LAB CHEMISTRY METHOD 11/23/2024 12:19 PM [facility] Comment:Calculation based on the Chronic Kidney Disease Epidemiology Collaboration (CKD-EPI) equation refit without adjustment for race. BUN/Creatinine Ratio 24.4 LAB CHEMISTRY METHOD 11/23/2024 12:19 PM [facility] Calcium 8.8 8.5 - 10.5 mg/dL LAB CHEMISTRY METHOD 11/23/2024 12:19 PM [facility] AST (SGOT) 25 10 - 42 unit/L LAB CHEMISTRY METHOD 11/23/2024 12:19 PM [facility] ALT (SGPT) 29 10 - 60 unit/L LAB CHEMISTRY METHOD 11/23/2024 12:19 PM [facility] Alkaline Phosphatase 130(H) 42 - 121 unit/L LAB CHEMISTRY METHOD 11/23/2024 12:19 PM [facility] Total Protein 6.2 6.0 - 8.0 g/dL LAB CHEMISTRY METHOD 11/23/2024 12:19 PM [facility] Albumin 2.6(L) 3.2 - 5.0 g/dL LAB CHEMISTRY METHOD 11/23/2024 12:19 PM [facility] Total Bilirubin 0.5 0.0 - 1.4 mg/dL LAB CHEMISTRY METHOD 11/23/2024 12:19 PM [facility] Blood Venous blood specimen / Unknown Venipuncture / Unknown 11/23/2024 6:14 AM EST 11/23/2024 11:00 AM EST us Marianna Ellison MD LAB BLOOD ORDERABLES Fin al Result [facility] [address] [place] [address], * (ABNORMAL) Complete blood count (11/23/2024 6:14 AM EST) WBC 13.9(H) 4.8 - 10.8 K/mcL LAB HEMETOLOGY METHOD 11/23/2024 11:40 AM EST [facility] RBC 4.40(L) 4.50 - 5.50 M/[facility] LAB HEMETOLOGY METHOD 11/23/2024 11:40 AM [facility] Hemoglobin 12.8(L) 13.5 - 17.5 g/dL LAB HEMETOLOGY METHOD 11/23/2024 11:40 AM [facility] Hematocrit 40.4(L) 42.0 - 54.0 % LAB HEMETOLOGY METHOD 11/23/2024 11:40 AM [facility] MCV 92.9 79.0 - 98.0 FL LAB HEMETOLOGY METHOD 11/23/2024 11:40 AM [facility] MCH 29.4 27.0 - 32.0 pcg LAB HEMETOLOGY METHOD 11/23/2024 11:40 AM [facility] MCHC 31.7(L) 32.0 - 37.0 g/dL LAB HEMETOLOGY METHOD 11/23/2024 11:40 AM [facility] RDW 13.8 11.0 - 15.0 % LAB HEMETOLOGY METHOD 11/23/2024 11:40 AM [facility] Platelets 299 130 - 400 K/mcL LAB HEMETOLOGY METHOD 11/23/2024 11:40 AM [facility] MPV 11.1(H) 7.0 - 11.0 FL LAB HEMETOLOGY METHOD 11/23/2024 11:40 AM [facility] NRBC 0.0 <1.0 % LAB HEMETOLOGY METHOD 11/23/2024 11:40 AM [facility] NRBC Absolute 0.00 <0.10 K/mcL LAB HEMETOLOGY METHOD 11/23/2024 11:40 AM [facility] Blood Venous blood specimen / Unknown Venipuncture / Unknown 11/23/2024 6:14 AM EST 11/23/2024 11:00 AM EST Marianna Ellison MD LAB BLOOD ORDERABLES Fin al Result [facility] [place] [facility] H[facility] LAB [address] [place] [address], documented in this encounter Visit Diagnoses Diagnosis Pain, unspecified Type 2 diabetes mellitus without complications (CMS/HCC V24, CMS/HCC V28) Weakness Other malaise and fatigue documented in this encounter Care Teams Shellfish Sorter Relationship Specialty Start Date End Date Brennan Prince MD On license of [facility] BREE Diaz PCP - General Internal Medicine 05/23/25 documented as of this encounter
--- OUTSIDE RECORDS SUMMARY | 2025-08-02 15:01 | XMS_ITS | Clinical Summary ---
Author Organization [facility] Address [address] [facility] [address] [place] [address] Phone Care Team Providers Care Cycle Analyst Name Role Phone Maci Carvajal Primary Care Provider [phone] Allergies No known active allergies Medications acetaminophen [...] Date Resolved Date Atrial fibrillation 11/04/2021 02/06/20 22 Disturbance in speech 11/04/20212021 History of amputation [...] Diabetes: Visual Foot Exam 11/29/2020 Influenza Vaccine (#1) 2025 07/25/2022 Pneumococcal Vaccine: 50+ Years Completed [...] % PVNMA 08/23/2020 us [facility] [id number] LICITED RESULTS Final Result PVNMA from Last 3 Months or Most Recently Relevant to Health Maintenance Insurance [facility] Care Teams Cycle Analyst Relationship Specialty Start Date End Date Maci Carvajal PA [address] [place], [place] PCP - General Physician Weigher Bulker 03/04/21
--- OUTSIDE RECORDS SUMMARY | 2025-08-02 15:01 | XMS_ITS | Encounter Summary ---
Author Organization [facility] Address [address] [place] [address] Care Team Providers Care Liquefaction And Regasification Helper Name Role Phone Brennan Prince MD Primary Care Provider [phone] Encounter Details Date Type Department Care Team (Late st Contact Info) Description 11/26/2024 Lab Requisition [facility] - Main Lab 299 [facility] [place] [address] Marianna Ellison MD [address] [facility] 1 [place] [address] Type 2 diabetes mellitus without complications (CMS/HCC [...] Description 11/16/2025 9:50 AM EST Office Visit [facility] [address] [place] [address] Sajan Noriega MD Medical [address] [address] [place] [phone] documented as of this encounter Procedures Procedure Name Priority Date/Time Associated Diagnosis Comments COMPLETE BLOOD COUNT Routine 11/27/2024 7:28 AM EST Type 2 diabetes mellitus without complications ([facility]/HCC) Weakness BASIC METABOLIC PANEL Routine 11/27/2024 7:28 AM EST Type 2 diabetes mellitus without complications ([facility]/HCC) Weakness documented in this encounter Results * (ABNORMAL) Basic metabolic panel (11/27/2024 7:28 AM EST) Sodium 139 133 - 145 mmol/L LAB CHEMISTRY METHOD 11/27/2024 1:51 PM [facility] Potassium 4.3 3.5 - 5.5 mmol/L LAB CHEMISTRY METHOD 11/27/2024 1:51 PM [facility] Chloride 103 96 - 110 mmol/L LAB CHEMISTRY METHOD 11/27/2024 1:51 PM [facility] CO2 32 21 - 32 mmol/L LAB CHEMISTRY METHOD 11/27/2024 1:51 PM [facility] Anion Gap 4 3 - 11 LAB CHEMISTRY METHOD 11/27/2024 1:51 PM [facility] Glucose 128(H) 70 - 100 mg/dL LAB CHEMISTRY METHOD 11/27/2024 1:51 PM [facility] BUN 29(H) 5 - 25 mg/dL LAB CHEMISTRY METHOD 11/27/2024 1:51 PM [facility] Creatinine 1.31(H) 0.70 - 1.30 mg/dL LAB CHEMISTRY METHOD 11/27/2024 1:51 PM [facility] eGFR 55(L) >=60 mL/min/1. 73m2 LAB CHEMISTRY METHOD 11/27/2024 1:51 PM [facility] Comment:Calculation based on the Chronic Kidney Disease Epidemiology Collaboration (CKD-EPI) equation refit without adjustment for race. BUN/Creatinine Ratio 22.1 LAB CHEMISTRY METHOD 11/27/2024 1:51 PM [facility] Calcium 8.7 8.5 - 10.5 mg/dL LAB CHEMISTRY METHOD 11/27/2024 1:51 PM [facility] Blood Venous blood specimen / Unknown Venipuncture / Unknown 11/27/2024 7:28 AM EST 11/27/2024 11:28 AM EST us Marianna Ellison MD LAB BLOOD ORDERABLES Fin al Result [facility] [address] [place] [address], * (ABNORMAL) Complete blood count (11/27/2024 7:28 AM EST) WBC 9.7 4.8 - 10.8 K/mcL LAB HEMETOLOGY METHOD 11/27/2024 1:19 PM [facility] RBC 4.30(L) 4.50 - 5.50 M/mcL LAB HEMETOLOGY METHOD 11/27/2024 1:19 PM [facility] Hemoglobin 12.6(L) 13.5 - 17.5 g/dL LAB HEMETOLOGY METHOD 11/27/2024 1:19 PM [facility] Hematocrit 40.7(L) 42.0 - 54.0 % LAB HEMETOLOGY METHOD 11/27/2024 1:19 PM [facility] MCV 94.4 79.0 - 98.0 FL LAB HEMETOLOGY METHOD 11/27/2024 1:19 PM [facility] MCH 29.2 27.0 - 32.0 pcg LAB HEMETOLOGY METHOD 11/27/2024 1:19 PM [facility] MCHC 31.0(L) 32.0 - 37.0 g/dL LAB HEMETOLOGY METHOD 11/27/2024 1:19 PM [facility] RDW 13.9 11.0 - 15.0 % LAB HEMETOLOGY METHOD 11/27/2024 1:19 PM EST [facility] Platelets 276 130 - 400 K/mcL LAB HEMETOLOGY METHOD 11/27/2024 1:19 PM EST [facility] MPV 11.2(H) 7.0 - 11.0 FL LAB HEMETOLOGY METHOD 11/27/2024 1:19 PM EST [facility] NRBC 0.0 <1.0 % LAB HEMETOLOGY METHOD 11/27/2024 1:19 PM EST [facility] NRBC Absolute 0.00 <0.10 K/mcL LAB HEMETOLOGY METHOD 11/27/2024 1:19 PM EST [facility] Blood Venous blood specimen / Unknown Venipuncture / Unknown 11/27/2024 7:28 AM EST 11/27/2024 11:28 AM EST us Marianna Ellison MD LAB BLOOD ORDERABLES Fin al Result [facility] [address] [place] [address], documented in this encounter Visit Diagnoses Diagnosis Type 2 diabetes mellitus without complications (CMS/HCC V24, CMS/HCC V28) Weakness Other malaise and fatigue documented in this encounter Care Teams Liquefaction And Regasification Helper Relationship Specialty Start Date End Date Brennan Prince MD [facility] BREE Diaz PCP - General Internal Medicine 05/23/25 documented as of this encounter
--- OUTSIDE RECORDS SUMMARY | 2025-08-02 15:01 | XMS_ITS | Patient Health Record ---
Author Organization [facility] Address [address] [place] [address] Care Team Providers Care Senior Security Architect Name Role Phone Brennan Prince MD Primary Care Provider Unavailab Piper Gonzalez Unavailable [phone] Maci Carvajal Unavailable Unavailable Allergies No Known Allergies Reason For Referral No Information Medications Medication SIG (Take, Route, Frequency, Duration) Notes Start Date End Date Status Symbicort 80-4.5 MCG/ACT 2 puffs Inhalat ion Twice a day Active Ammonium Lactate 12 % 1 application to affected area Externally to feet Twice a day; Duration: 30 days Not-Taking PARoxetine HCl 20 MG [...] Orally Act cheo Clopidogrel Bisulfate 75 MG Oral; Duration: 30 Not-Takin g Extra Depth Orthopedic Shoes (1 Pair) with Customized Heat Molded Multidensity Innersoles (3 Pair) as directed Dx: NIDDM/Polyneuropathy (E11.42), Hammertoe Foot Deformity (M20.41,M20.42), Preulcerative Skin Lesion(s) (L85.1 05/24/2020 Not-Taking Trulicity Active Tiotropium [place] Monohydrate Active Extra Depth Orthopedic Shoes (1 Pair) with Customized Heat Molded Multidensity Innersoles (3 Pair) as directed Dx: IDDM/Polyneuropathy (E10.42), Hammertoe Foot Deformity (M20.41), Preulcerative Skin Lesion(s) (L85.1); Duration: 365 days 11/30/2019 Not-Taking Albuterol Active Stimulant [...] MG 1 capsule Orally jacek ry 12 hrs; Duration: 10 day(s) 05/12/2022 Not-Taking Digoxin 125 MCG 1 tablet Oral Once a day Active Silvadene 1 % 1 application Offset Plate Maker ally Once a day; Duration: 30 days 04/24/2022 Not-Taking Omeprazole 20 MG Orally Act cheo Xarelto Not-Taking Isosorbide Mononitrate ER 60 MG 1 tablet in the morning Orally Once a day Active Cephalexin Not-Takin g Ammonium Lactate 12 % 1 application Exte rnally Twice a day; Duration: 30 days Active AmLactin 12 % 1 application to affected area Externally Twice a day to feet; Duration: 30 days 08/17/2023 Active Atorvastatin Calcium 40 MG Orally Active HumaLOG Not-Taking Allopurinol 100 MG as directed Orally Active Farxiga 10 MG 1 tablet Orally Once a day; Duration: 30 day(s) Not-Shawn ing Immunizations Vaccine Route Administration Date Status Comme nts Influenza Unknown 03/04/2016 Administered Influenza Unknown 05/06/2017 Administered Influenza Unknown 07/16/2017 Administered Influenza Unknown 07/15/2018 Administered Influenza Unknown 07/16/2019 Administered Influenza Unknown 08/20/2020 Administered Influenza Unknown 08/13/2023 Administered Pneumococcal Unknown 08/09/2015 Administered COVID-19 Pfizer BioNTech Vaccine Unknown 08/28/2021 Administered 1st vaccine 12/05/20 2nd vaccine 12/26/20 Social History Tobacco Use: Social History Observation [...] Problem Acquired hammer toe of right foot (8109237276396611 ) Other hammer toe(s) (acquired), right foot (M20.41) Active confirmed Problem Acquired hammer toe of left foot (0127890572018407 ) Other hammer toe(s) (acquired), left foot (M20.42) Active confirmed Problem Chronic ulcer of foot (463471379) Non-pressure chronic ulcer of right heel and midfoot with fat layer exposed (L97.412) Active confirmed Problem 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 unspecified severity (L97.809) Active confirmed Problem Disorder of amputation stump (918534859) Other complications of amputation stump (T87.89) Active confirmed Problem Chronic ulcer of foot (355913916) Non-pressure chronic ulcer of right heel and midfoot limited to breakdown of skin (L97.411) Active confirmed Problem Chronic ulcer of foot (652791765) Non-pressure chronic ulcer of right heel and midfoot with fat layer exposed (L97.412) Active confirmed Problem Polyneuropathy due to type 2 diabetes mellitus (942410752) Type 2 diabetes mellitus with diabetic polyneuropathy (E11.42) Active confirmed Problem History of amputation of left forefoot (0174746156235939 2) History of amputation of left forefoot (Z89.432) Active confirmed Problem Ulcer of right heel (disorder) (6776425848898692 2) Skin ulcer of right heel, limited to breakdown of skin (L97.411) Active confirmed Problem History of amputation of great toe (606089813) History of amputation of great toe (Z89.419) Active confirmed Problem Amputated below knee (829304611) 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) Active confirmed Problem Traumatic amputation of lesser toe of left foot (disorder) (85531335970061) History of amputation of lesser toe of left foot (Z89.422) Active confirmed Vital Signs Height 6 ft 1 in in 09/13/2024 Weight 206 lbs 09/13/2024 BMI 27.18 kg/m2 09/13/2024 Procedures Procedure Date Ordered Date Performed Result Body Sit e 45981-NDZZ SKIN LESIONS, OVER 4 09/13/2024 N/A Encounters Encounter Location Date Provider Diagnosis [facility] [address] 09/13/2024 Piper Santos Type 2 diabetes mellitus with diabetic polyneuropathy E11.42 ; History of below-knee amputation of right lower extremity Z89.511 ; History of amputation of lesser toe of left foot Z89.422 ; History of amputation of great toe Z89.419 ; Other complications of amputation stump T87.89 and 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 unspecified severity L97.809 [facility] [address] [place] [address] 12/12/2024 Piper Santos Assessments Encounter Date Diagnosis [...] X ray : Foot, right 3V 05/12/2022 96584-SAXTUNL NAIL, 6 OR MORE 07/09/2011 22823-UDTMZVA NAIL, 6 OR MORE 10/08/2011 45065-OQHUPZF NAIL, 6 OR MORE 01/07/2012 51427-OMRMQGI NAIL, 6 OR MORE 04/28/2012 17097-CQWZFSC NAIL, 6 OR MORE 08/11/2012 24937-QXZSRUK NAIL, 6 OR MORE 11/10/2012 27204-FUQMZOI NAIL, 6 OR MORE 02/09/2013 35306-UPWRPVF NAIL, 6 OR MORE 05/11/2013 04713-ARJOSNV NAIL, 6 OR MORE 08/24/2013 69569-KGMOLML NAIL, 6 OR MORE 11/23/2013 35772-XXANFAD NAIL, 6 OR MORE 09/02/2015 71243-VWWBPCD NAIL, 6 OR MORE 02/07/2015 56204-MVRUBGS NAIL, 6 OR MORE 05/09/2015 75138-NLQJTVW NAIL, 6 OR MORE 02/22/2014 54206-TJRTVQC NAIL, 6 OR MORE 05/24/2014 88221-FIQULSA NAIL, 6 OR MORE 08/23/2014 65448-UCAMULC NAIL, 6 OR MORE 11/22/2014 96085-SMZSLKH NAIL, 6 OR MORE 12/02/2015 23757-BAEUVKY NAIL, 6 OR MORE 03/04/2016 74433-XCHJTPN NAIL, 6 OR MORE 08/19/2016 16558-GCVJBWD NAIL, 6 OR MORE 11/19/2016 24427-OUIUPEY NAIL, 6 OR MORE 02/11/2017 64183-PZJNNOK NAIL, 6 OR MORE 05/27/2017 45644-EQYMKHY NAIL, 6 OR MORE 08/26/2017 24944-CDZKFIC NAIL, 6 OR MORE 11/25/2017 87448-QZAKJZT NAIL, 6 OR MORE 03/24/2018 75418-YXYMFYY NAIL, 6 OR MORE 07/13/2018 63524-DKZIAIF NAIL, 6 OR MORE 10/12/2018 69802-UCVCSEK NAIL, 6 OR MORE 01/11/2019 32511-XVTYLBE NAIL, 6 OR MORE 04/13/2019 38137-MFSOKVC NAIL, 6 OR MORE 08/30/2019 19724-PVDQCZE NAIL, 1-5 11/30/2019 50475-FLYATCT NAIL, 1-5 05/24/2020 17330-QHSSSLW NAIL, 1-5 08/27/2020 86107-AWTQZTV NAIL, 1-5 01/21/2022 01686-OJZMJRI NAIL, 1-5 04/24/2022 85884-YDWVWOU NAIL, 1-5 11/29/2020 58168-AOPGECJ NAIL, 1-5 03/05/2021 12016-UXXTUPN NAIL, 1-5 07/08/2021 67855-DOOZMFN NAIL, 1-5 10/10/2021 45438-Snanljzz Plate 05/11/2013 18140- Debride <25 sq cm 11/23/2013 38182- Debride <25 sq cm 02/22/2014 27547- Debride <25 sq cm 11/22/2014 91793- Debride <25 sq cm 04/24/2022 17299-HMTFAKM SKIN/TISSUE 12/18/2015 27473 I&D ABSCESS- SIMPLE,SINGLE 016 16852-BLVG SKIN LESIONS, OVER 4 12/02/19 16 13462-VPJD SKIN LESIONS, OVER 4 05/09/20 15 31381-TGGS SKIN LESIONS, OVER 4 09/02/20 15 69190-MRFT SKIN LESIONS, OVER 4 02/08/20 15 62791-WKDD SKIN LESIONS, OVER 4 02/23/20 14 30725-CKGO SKIN LESIONS, OVER 4 11/22/19 15 39601-CSOG SKIN LESIONS, OVER 4 05/24/20 14 60561-SWTA SKIN LESIONS, OVER 4 08/23/20 14 50846-ZFYV SKIN LESIONS, OVER 4 03/04/20 16 32470-TZQE SKIN LESIONS, OVER 4 11/19/19 17 48127-WZAM SKIN LESIONS, OVER 4 08/19/20 16 12913-COGO SKIN LESIONS, OVER 4 03/24/20 18 61579-YBRK SKIN LESIONS, OVER 4 11/25/19 18 17637-RGRH SKIN LESIONS, OVER 4 08/26/20 17 22292-SFFM SKIN LESIONS, OVER 4 02/12/20 17 77608-MUZU SKIN LESIONS, OVER 4 05/27/20 17 72279-XSAS SKIN LESIONS, OVER 4 08/30/20 19 73345-MIPT SKIN LESIONS, OVER 4 04/13/20 19 63043-XLCF SKIN LESIONS, OVER 4 01/12/20 19 44446-WNFK SKIN LESIONS, OVER 4 10/12/20 18 99756-WLZS SKIN LESIONS, OVER 4 07/13/20 18 40813-NULR SKIN LESIONS, OVER 4 02/22/20 24 59350-ELYC SKIN LESIONS, OVER 4 05/30/20 24 01645-LCYT SKIN LESIONS, OVER 4 09/13/20 24 79178-MNGA SKIN LESIONS, 2 TO 4 04/24/20 22 80642-QFRQ SKIN LESIONS, 2 TO 4 11/23/19 24 26772-XIHD SKIN LESIONS, 2 TO 4 01/22/20 22698-ZGLH SKIN LESIONS, 2 TO 4 10/10/20 21 69813-YXPE SKIN LESIONS, 2 TO 4 07/08/20 21 68461-NHAY SKIN LESIONS, 2 TO 4 03/05/20 21 09732-HQIV SKIN LESIONS, 2 TO 4 11/30/19 20 98109-XWVU SKIN LESIONS, 2 TO 4 05/24/20 20 14916-KRPI SKIN LESIONS, 2 TO 4 11/29/19 21 61163-NLIS SKIN LESIONS, 2 TO 4 08/27/20 20 77138-AOFM SKIN LESIONS, 2 TO 4 11/23/19 14 12579-PGTY SKIN LESIONS, 2 TO 4 08/24/20 13 81281-NDDN SKIN LESIONS, 2 TO 4 05/11/20 13 54641-KBBO SKIN LESIONS, 2 TO 4 02/10/20 13 74911-DJNR SKIN LESIONS, 2 TO 4 11/10/19 13 48117-QAUE SKIN LESIONS, 2 TO 4 08/11/20 12 79894-USRK SKIN LESION 04/28/2012 51968-DZDHYQGB OF HEMATOMA/FLUID 013 HEMOGLOBIN A1C (GLYCOHEMOGLOBIN) 024 Insurance Providers Payer Name Payer Address Payer Phone Subscriber Number Group Number Insured Name Patient Relationship to Insured Coverage Start Date Coverage End Date [employer] [address] [place] [address] [id number] Ruest, Jim Self - patient is the insured 2 [...] 3days 12/2015 pneumonia [facility] 6 days 12/2015 [facility], blood in urine 07/16/15 [facility]- infected toe 10/31/13-11/04/13 [facility]- CHF, fluid in lungs 05/2013 [facility] colonoscopy 2013
== END 2025-08-02 14:34 | disposition home or self-care (01) ==
LOC: HO.HKAS 13:31
PROVIDERS: Visit Provider Internal Medicine Nephrology
DX: I10 Essential (primary) hypertension (principal); N18.32 Chronic kidney disease, stage 3b; E11.21 Type 2 diabetes mellitus with diabetic nephropathy; Z79.4 Long term (current) use of insulin
CPT/HCPCS: 99214